=== PATIENT | male | born 1945 | race Caucasian/White ===

== ENCOUNTER 2018-07-06 20:13 | Inpatient (IN) ==
[2018-07-06] MEDS ORDERED: cefTRIAXone 1,000 MG in Water for inj. (sterile) 20 ML 10 ML IVP ONE (20:38)
[2018-07-06] MEDS ORDERED: Isovue-370 500 ML INFUS..BTL IV ONE (20:38)
[2018-07-06 22:02] LABS: Basophils % 0.1 %; Immature Granulocytes % 0.2 % (0-4); Mean Corpuscular Volume 91.1 fL (83.0-100.0); Monocytes % 3.4 %; Red Cell Distribution Width 15.1 % (11.5-14.5)
[2018-07-06 22:04] LABS: Eosinophils % 0.1 %; Hematocrit 37.9 % (37.5-50.1); Hemoglobin 12.5 g/dL (12.9-16.9); Immature Platelets 8.9 % (1.1-6.1); Lymphocytes # 0.3 K/mcL (0.6-4.6); Lymphocytes % 3.6 %; Mean Platelet Volume 10.4 fL (9.4-12.4); Monocytes # 0.3 K/mcL (0.0-1.3); Red Blood Count 4.16 M/mcL (4.19-5.50); Segmented Neutrophils % 92.6 %
[2018-07-06 22:06] LABS: Platelet Count 43 K/mcL (140-400)
[2018-07-06 22:10] LABS: INR 2.2; Prothrombin Time 24.3 Seconds (9.4-12.1)
[2018-07-06 22:12] LABS: Activated Partial Thrombo Time 34.7 Seconds (26.0-36.0)
[2018-07-06 22:25] LABS: Albumin 3.2 g/dL (3.5-5.7); Albumin/Globulin Ratio 0.8 (1.1-2.2); Bilirubin,Indirect 0.8 mg/dL (0.0-1.2); Bilirubin,Total 1.8 mg/dL (0.3-1.0); Calcium 8.8 mg/dL (8.6-10.3); Dohle Bodies Present (Not Present); Globulin 3.9 g/dL (2.4-3.5); Potassium 3.6 mEq/L (3.5-5.1); Total Protein 7.1 g/dL (6.4-8.9)
[2018-07-06 22:27] LABS: Troponin I 0.05 ng/mL (< 0.04)
[2018-07-06] MEDS ORDERED: Piperacillin/Tazobactam 3.375 GM in 0.9 % Sodium Chloride Mini Bag 100 ML IVPB ONE (23:54)
--- NOTE | 2018-07-06 23:56 | Emergency Department Note ---
Disposition Clinical Impression: Obstructive uropathy, Elevated troponin, Severe sepsis Renal failure Qualifiers: Renal failure chronicity: acute Acute renal failure type: unspecified Qualified Code(s): N17.9 - Acute kidney failure, unspecified Atrial fibrillation Qualifiers: Atrial fibrillation type: chronic Qualified Code(s): I48.2 - Chronic atrial fibrillation Cirrhosis Qualifiers: Hepatic cirrhosis type: unspecified hepatic cirrhosis Ascites presence: with ascites Qualified Code(s): K74.60 - Unspecified cirrhosis of liver Disposition: Admitted As Inpatient Condition: Fair General Adult HPI - General Chief complaint: ED Weakness Stated complaint: Dizziness, Weakness Time Seen by Provider: 07/06/18 20:17 Source: patient, EMS, other Limitations: no limitations - History of Present Illness Pain Scale: 0 - Related Data Home Medications Medication Instructions Recorded Confirmed RX: Docusate [Colace] 200 mg PO DAILY PRN 10/23/15 07/07/18 RX: Gabapentin [Neurontin] 600 mg PO TID 10/23/15 07/07/18 RX: Ferrous Sulfate 325 mg PO TID 07/30/16 07/07/18 Ammonium Lactate [Rere-Hydrolac] 1 appl TP BID 07/07/18 07/07/18 Cholecalciferol (D-3) [Vitamin D] 1,000 unit PO DAILY 07/07/18 07/07/18 Furosemide [Lasix] 40 mg PO DAILY 07/07/18 07/07/18 Loratadine [Allergy Relief] 10 mg PO DAILY 07/07/18 07/07/18 NALOXONE 4 MG Nasal [place] [Narcan] 4 mg NS AD 07/07/18 07/07/18 Ondansetron HCl [Zofran] 4 mg PO Q8HR PRN 07/07/18 07/07/18 Oxycodone HCl [Roxybond] 15 mg PO Q6H PRN 07/07/18 07/07/18 Pantoprazole Sodium [Protonix] 40 mg PO DAILY 07/07/18 07/07/18 RX: Atorvastatin [Lipitor] 20 mg PO HS 07/07/18 07/07/18 RX: FluocinoNIDE 0.05% CRM [Lidex] 1 appl TP DAILY 07/07/18 07/07/18 RX: Lidocaine 1 appl TP TID PRN 07/07/18 07/07/18 Spironolactone [Aldactone] 12.5 mg PO DAILY 07/07/18 07/07/18 Terbinafine HCl [Terbinafine] 1 appl TP BID 07/07/18 07/07/18 Previous Rx's Medication Instructions Recorded RX: Diltiazem CD (24hr) [Cardizem 180 mg PO DAILY 30 Days cap.er.24h 10/25/15 CD] Allergies Allergy/AdvReac Type Severity Reaction Status Date / Time No Known Allergies Allergy Verified 07/30/16 17:02 Past Medical History - Past Medical History Medical history: Reports: arthritis, atrial fibrillation, cirrhosis, COPD, diabetes, GERD, GI bleed, hepatitis, hyperlipidemia, hypertension, liver disease, osteoporosis, RA, syncope, other Surgical history: Reports: non-contributory Psychiatric history: Reports: anxiety, PTSD - Social History Smoking Status: Never smoker Smokeless Tobacco Status: No Alcohol use: Reports: none Drug use: Reports: none Physical Exam - General Limitations: no limitations General appearance: alert Course Vital Signs Temperature 98.5 F 07/06/18 20:23 Pulse Rate 127 07/06/18 20:23 Respiratory Rate 31 07/06/18 20:23 Blood Pressure 108/65 07/06/18 20:23 O2 Sat by Pulse Oximetry 87 07/06/18 20:23 Temperature 96.8 F L 07/08/18 03:56 Pulse Rate 77 07/08/18 06:00 Respiratory Rate 18 07/08/18 06:00 Blood Pressure 94/71 07/08/18 06:00 O2 Sat by Pulse Oximetry 94 07/08/18 06:00 Oxygen Delivery Oxygen Delivery Nasal Cannula Medical Decision Making - Lab Data Result diagrams: 07/08/18 05:20 07/08/18 05:20 Lab Results 07/06/18 07/06/18 07/06/18 Range/Units 20:38 20:38 20:38 WBC 8.6 (4.3-11.1) K/mcL RBC 4.16 L (4.19-5.50) M/mcL Hgb 12.5 L (12.9-16.9) g/dL Hct 37.9 (37.5-50.1) % MCV 91.1 (83.0-100.0) fL MCH 30.0 (28.0-33.3) pg MCHC 33.0 (31.6-35.5) g/dL RDW 15.1 H (11.5-14.5) % Plt Count 43 L (140-400) K/mcL MPV 10.4 (9.4-12.4) fL Immature Gran % 0.2 (0-4) % Seg Neutrophils % 92.6 % Lymphocytes % 3.6 % Monocytes % 3.4 % Eosinophils % 0.1 % Basophils % 0.1 % Neutrophils # 8.0 (1.6-8.9) K/mcL Lymphocytes # 0.3 L (0.6-4.6) K/mcL Monocytes # 0.3 (0.0-1.3) K/mcL Eosinophils # 0.0 (0.0-0.6) K/mcL Basophils # 0.0 (0.0-0.2) K/mcL Dohle Bodies Present A (Not Present) Immature Plt Fraction 8.9 H (1.1-6.1) % PT 24.3 H (9.4-12.1) Seconds INR 2.2 APTT 34.7 (26.0-36.0) Seconds Sodium 128 L (136-145) mEq/L Potassium 3.6 (3.5-5.1) mEq/L Chloride 92 L (98-107) mEq/L Carbon Dioxide 23 (23-29) mEq/L BUN 69 H (8-23) mg/dL Creatinine 4.23 H (0.70-1.30) mg/dL Est GFR ( Amer) 17 L (> 60) Est GFR (Non-Af Amer) 14 L (> 60) BUN/Creatinine Ratio 16 (6-26) Glucose 302 H (70-105) mg/dL POC Glucose (70-99) mg/dL Calculated Osmolality 297 (280-300) Lactic Acid (0.5-2.2) mmol/L Calcium 8.8 (8.6-10.3) mg/dL Total Bilirubin 1.8 H (0.3-1.0) mg/dL Direct Bilirubin 1.0 H (0.0-0.2) mg/dL Indirect Bilirubin 0.8 (0.0-1.2) mg/dL AST 30 (13-39) Units/L ALT 29 (7-52) Units/L Alkaline Phosphatase 84 (34-104) Units/L Ammonia (16-53) mcmol/L Troponin I 0.05 H* (< 0.04) ng/mL Serum Total Protein 7.1 (6.4-8.9) g/dL Albumin 3.2 L (3.5-5.7) g/dL Globulin 3.9 H (2.4-3.5) g/dL Albumin/Globulin Ratio 0.8 L (1.1-2.2) Lipase 10 L (11-82) Units/L Urine Color (Yellow) Urine Clarity (Clear) Urine pH (5.0-8.0) pH Units Ur Specific [place] (1.010-1.025) Urine Protein (Neg-Trace) mg/dL Urine Glucose (UA) (Normal) mg/dL Urine Ketones (Negative) mg/dL Urine Blood (Negative) Urine Nitrite (Negative) Urine Bilirubin (Negative) Urine Urobilinogen (Normal) mg/dL Ur Leukocyte Esterase (Negative) Urine Microscopic RBC (0-3) per hpf Urine Microscopic WBC (0-3) per hpf Ur Squamous Epith Cells (None-Few) per lpf Urine Bacteria (None-Few) per hpf Hyaline Casts (None-Few) per lpf Ur Culture Indicated? (NO) A. baumannii (PCR) (Not Detect) Betsey albicans (PCR) (Not Detect) C. glabrata (PCR) (Not Detect) C. krusei (PCR) (Not Detect) C. parapsilosis (PCR) (Not Detect) C. tropicalis (PCR) (Not Detect) Enterobacteriac sp PCR (Not Detect) E. cloacae complex PCR (Not Detect) Enterococcus sp PCR (Not Detect) E. coli (PCR) (Not Detect) H. influenzae (PCR) (Not Detect) Klebsiella oxytoca PCR (Not Detect) Klebsiella pneumoniae (Not Detect) List. monocytogenes PCR (Not Detect) N. meningitidis (PCR) (Not Detect) Proteus species (PCR) (Not Detect) Serratia marcescens PCR (Not Detect) Staphylococcus sp PCR (Not Detect) Staph aureus (PCR) (Not Detect) mecA-Methicil Res Gene (Not Detect) Streptococcus sp PCR (Not Detect) Group A Strep DNA (Not Detect) Group B Strep (PCR) (Not Detect) Strep pneumoniae (PCR) (Not Detect) P. aeruginosa (PCR) (Not Detect) Crystal/B-Vanco Res Genes (Not Detect) KPC (blaKPC) Detect PCR (Not Detect) 07/06/18 07/06/18 07/06/18 Range/Units 21:10 21:42 21:42 WBC (4.3-11.1) K/mcL RBC (4.19-5.50) M/mcL Hgb (12.9-16.9) g/dL Hct (37.5-50.1) % MCV (83.0-100.0) fL MCH (28.0-33.3) pg MCHC (31.6-35.5) g/dL RDW (11.5-14.5) % Plt Count (140-400) K/mcL MPV (9.4-12.4) fL Immature Gran % (0-4) % Seg Neutrophils % % Lymphocytes % % Monocytes % % Eosinophils % % Basophils % % Neutrophils # (1.6-8.9) K/mcL Lymphocytes # (0.6-4.6) K/mcL Monocytes # (0.0-1.3) K/mcL Eosinophils # (0.0-0.6) K/mcL Basophils # (0.0-0.2) K/mcL Dohle Bodies (Not Present) Immature Plt Fraction (1.1-6.1) % PT (9.4-12.1) Seconds INR APTT (26.0-36.0) Seconds Sodium (136-145) mEq/L Potassium (3.5-5.1) mEq/L Chloride (98-107) mEq/L Carbon Dioxide (23-29) mEq/L BUN (8-23) mg/dL Creatinine (0.70-1.30) mg/dL Est GFR ( Amer) (> 60) Est GFR (Non-Af Amer) (> 60) BUN/Creatinine Ratio (6-26) Glucose (70-105) mg/dL POC Glucose (70-99) mg/dL Calculated Osmolality (280-300) Lactic Acid 3.8 H (0.5-2.2) mmol/L Calcium (8.6-10.3) mg/dL Total Bilirubin (0.3-1.0) mg/dL Direct Bilirubin (0.0-0.2) mg/dL Indirect Bilirubin (0.0-1.2) mg/dL AST (13-39) Units/L ALT (7-52) Units/L Alkaline Phosphatase (34-104) Units/L Ammonia 42 (16-53) mcmol/L Troponin I (< 0.04) ng/mL Serum Total Protein (6.4-8.9) g/dL Albumin (3.5-5.7) g/dL Globulin (2.4-3.5) g/dL Albumin/Globulin Ratio (1.1-2.2) Lipase (11-82) Units/L Urine Color (Yellow) Urine Clarity (Clear) Urine pH (5.0-8.0) pH Units Ur Specific [place] (1.010-1.025) Urine Protein (Neg-Trace) mg/dL Urine Glucose (UA) (Normal) mg/dL Urine Ketones (Negative) mg/dL Urine Blood (Negative) Urine Nitrite (Negative) Urine Bilirubin (Negative) Urine Urobilinogen (Normal) mg/dL Ur Leukocyte Esterase (Negative) Urine Microscopic RBC (0-3) per hpf Urine Microscopic WBC (0-3) per hpf Ur Squamous Epith Cells (None-Few) per lpf Urine Bacteria (None-Few) per hpf Hyaline Casts (None-Few) per lpf Ur Culture Indicated? (NO) A. baumannii (PCR) Not Detected (Not Detect) [place] albicans (PCR) Not Detected (Not Detect) C. glabrata (PCR) Not Detected (Not Detect) C. krusei (PCR) Not Detected (Not Detect) C. parapsilosis (PCR) Not Detected (Not Detect) C. tropicalis (PCR) Not Detected (Not Detect) Enterobacteriac sp PCR DETECTED A (Not Detect) E. cloacae complex PCR Not Detected (Not Detect) Enterococcus sp PCR Not Detected (Not Detect) E. coli (PCR) DETECTED A (Not Detect) H. influenzae (PCR) Not Detected (Not Detect) Klebsiella oxytoca PCR Not Detected (Not Detect) Klebsiella pneumoniae Not Detected (Not Detect) List. monocytogenes PCR Not Detected (Not Detect) N. meningitidis (PCR) Not Detected (Not Detect) Proteus species (PCR) Not Detected (Not Detect) Serratia marcescens PCR Not Detected (Not Detect) Staphylococcus sp PCR Not Detected (Not Detect) Staph aureus (PCR) Not Detected (Not Detect) mecA-Methicil Res Gene Not Detected (Not Detect) Streptococcus sp PCR Not Detected (Not Detect) Group A Strep DNA Not Detected (Not Detect) Group B Strep (PCR) Not Detected (Not Detect) Strep pneumoniae (PCR) Not Detected (Not Detect) P. aeruginosa (PCR) Not Detected (Not Detect) Crystal/B-Vanco Res Genes Not Detected (Not Detect) KPC (blaKPC) Detect PCR Not Detected (Not Detect) 07/07/18 07/07/18 07/07/18 Range/Units 03:45 04:55 05:57 WBC (4.3-11.1) K/mcL RBC (4.19-5.50) M/mcL Hgb (12.9-16.9) g/dL Hct (37.5-50.1) % MCV (83.0-100.0) fL MCH (28.0-33.3) pg MCHC (31.6-35.5) g/dL RDW (11.5-14.5) % Plt Count (140-400) K/mcL MPV (9.4-12.4) fL Immature Gran % (0-4) % Seg Neutrophils % % Lymphocytes % % Monocytes % % Eosinophils % % Basophils % % Neutrophils # (1.6-8.9) K/mcL Lymphocytes # (0.6-4.6) K/mcL Monocytes # (0.0-1.3) K/mcL Eosinophils # (0.0-0.6) K/mcL Basophils # (0.0-0.2) K/mcL Dohle Bodies (Not Present) Immature Plt Fraction (1.1-6.1) % PT (9.4-12.1) Seconds INR APTT (26.0-36.0) Seconds Sodium (136-145) mEq/L Potassium (3.5-5.1) mEq/L Chloride (98-107) mEq/L Carbon Dioxide (23-29) mEq/L BUN (8-23) mg/dL Creatinine (0.70-1.30) mg/dL Est GFR ( Amer) (> 60) Est GFR (Non-Af Amer) (> 60) BUN/Creatinine Ratio (6-26) Glucose (70-105) mg/dL POC Glucose 284 H (70-99) mg/dL Calculated Osmolality (280-300) Lactic Acid (0.5-2.2) mmol/L Calcium (8.6-10.3) mg/dL Total Bilirubin (0.3-1.0) mg/dL Direct Bilirubin (0.0-0.2) mg/dL Indirect Bilirubin (0.0-1.2) mg/dL AST (13-39) Units/L ALT (7-52) Units/L Alkaline Phosphatase (34-104) Units/L Ammonia (16-53) mcmol/L Troponin I 0.05 H* (< 0.04) ng/mL Serum Total Protein (6.4-8.9) g/dL Albumin (3.5-5.7) g/dL Globulin (2.4-3.5) g/dL Albumin/Globulin Ratio (1.1-2.2) Lipase (11-82) Units/L Urine Color Dark Yellow (Yellow) Urine Clarity Cloudy A (Clear) Urine pH 5.0 (5.0-8.0) pH Units Ur Specific [place] 1.024 (1.010-1.025) Urine Protein 30 H (Neg-Trace) mg/dL Urine Glucose (UA) Normal (Normal) mg/dL Urine Ketones Trace H (Negative) mg/dL Urine Blood Moderate H (Negative) Urine Nitrite Negative (Negative) Urine Bilirubin Small H (Negative) Urine Urobilinogen 2.0 H (Normal) mg/dL Ur Leukocyte Esterase Large H (Negative) Urine Microscopic RBC 3-5 H (0-3) per hpf Urine Microscopic WBC TNTC H (0-3) per hpf Ur Squamous Epith Cells Moderate H (None-Few) per lpf Urine Bacteria Many H (None-Few) per hpf Hyaline Casts Few (None-Few) per lpf Ur Culture Indicated? YES A (NO) A. baumannii (PCR) (Not Detect) [place] albicans (PCR) (Not Detect) C. glabrata (PCR) (Not Detect) C. krusei (PCR) (Not Detect) C. parapsilosis (PCR) (Not Detect) C. tropicalis (PCR) (Not Detect) Enterobacteriac sp PCR (Not Detect) E. cloacae complex PCR (Not Detect) Enterococcus sp PCR (Not Detect) E. coli (PCR) (Not Detect) H. influenzae (PCR) (Not Detect) Klebsiella oxytoca PCR (Not Detect) Klebsiella pneumoniae (Not Detect) List. monocytogenes PCR (Not Detect) N. meningitidis (PCR) (Not Detect) Proteus species (PCR) (Not Detect) Serratia marcescens PCR (Not Detect) Staphylococcus sp PCR (Not Detect) Staph aureus (PCR) (Not Detect) mecA-Methicil Res Gene (Not Detect) Streptococcus sp PCR (Not Detect) Group A Strep DNA (Not Detect) Group B Strep (PCR) (Not Detect) Strep pneumoniae (PCR) (Not Detect) P. aeruginosa (PCR) (Not Detect) Crystal/B-Vanco Res Genes (Not Detect) KPC (blaKPC) Detect PCR (Not Detect) Attestation Statement - Attestation Attestation: I examined this patient and my medical decision-making was reviewed with the Resident Physician. I agree with the documented findings, disposition and treatment plan as described except to the extent set forth below. Findings consistant with obstructive uropathy. Will admit for surgical removal. Discussed case with urology. Patient does have NEELAM from obstructive uropathy. I spent greater than 35 minutes of critical care time excluding billable procedures. Acute renal Failure.
--- NOTE | 2018-07-06 23:58 | Emergency Department Note ---
Disposition Clinical Impression: Obstructive uropathy, Elevated troponin, Severe sepsis Renal failure Qualifiers: Renal failure chronicity: acute Acute renal failure type: unspecified Qualified Code(s): N17.9 - Acute kidney failure, unspecified Atrial fibrillation Qualifiers: Atrial fibrillation type: chronic Qualified Code(s): I48.2 - Chronic atrial fibrillation Cirrhosis Qualifiers: Hepatic cirrhosis type: unspecified hepatic cirrhosis Ascites presence: with ascites Qualified Code(s): K74.60 - Unspecified cirrhosis of liver; R18.8 - Other ascites Disposition: Admitted As Inpatient Condition: Fair [facility]errals: [facility]Primary Care Provider[facility] - Forms: ED Satisfaction Letter Time of Disposition: 00:17 General Adult HPI - General Chief complaint: ED Weakness Stated complaint: Dizziness, Weakness Time Seen by Provider: 07/06/18 20:17 Source: patient, EMS, other Mode of arrival: EMS Limitations: no limitations Nursing Notes Reviewed: Yes Vital Signs Reviewed: Yes - History of Present Illness HPI Narrative: Patient presents to the ED with abdominal pain. Patient was transferred from the [facility]. Does have a history of cirrhosis and potential liver malignancy. Patient was also complaining of feeling lightheaded like he is going to pass out and weak. They did not have any imaging capabilities at the [place] so he was transferred here. Patient denies any chest pain or shortness breath. He does have some abdominal pain and back pain. Some nausea but no vomiting. No diarrhea. States he has had some difficulty urinating as well. States he also feels very fuzzy and out of it. Pain Scale: 0 - Related Data Home Medications Medication Instructions Recorded Confirmed Docusate [Colace] 100 mg PO DAILY PRN 10/23/15 07/30/16 Gabapentin [Neurontin] 600 mg PO TID 10/23/15 07/30/16 Potassium Chloride [K-Tab ER] 20 meq PO DAILY 10/23/15 07/30/16 hydroCHLOROthiazide 25 mg PO DAILY 10/23/15 07/30/16 [Hydrochlorothiazide] Ferrous Sulfate 975 mg PO DAILY 07/30/16 07/30/16 OxyCODONE Immed Rel [Roxicodone 10 10 mg PO Q6H PRN 07/30/16 07/30/16 MG] Previous Rx's Medication Instructions Recorded Atorvastatin [Lipitor] 40 mg PO HS #30 tablet 10/25/15 Diltiazem CD (24hr) [Cardizem CD] 180 mg PO DAILY 30 Days cap.er.24h 10/25/15 Metoprolol [Lopressor] 25 mg PO BID #60 tablet 10/25/15 Linezolid [Zyvox] 600 mg PO BID #56 tablet 08/03/16 OxyCODONE Immed Rel [Roxicodone 5 5 mg PO TID PRN #30 tablet 08/03/16 MG] Allergies Allergy/AdvReac Type Severity Reaction Status Date / Time No Known Allergies Allergy Verified 07/30/16 17:02 Review of Systems: As reviewed in the HPI. All other systems reviewed are negative or normal. Past Medical History - Past Medical History Attestation: Yes The following information was validated with the patient. Source: patient Medical history: Reports: arthritis, atrial fibrillation, cirrhosis, COPD, diabetes, GERD, GI bleed, hepatitis, hyperlipidemia, hypertension, liver d isease, osteoporosis, RA, syncope, other Surgical history: Reports: non-contributory Psychiatric history: Reports: anxiety, PTSD - Social History Smoking Status: Never smoker Smokeless Tobacco Status: No Alcohol use: Reports: none Drug use: Reports: none Physical Exam CONSTITUTIONAL: [Ill appearing, alert and in no acute distress] EYES: [EOMI, clear conjunctiva, PERRLA] HENT: [Normocephalic, atraumatic, moist mucus membranes, normal oropharynx] NECK: [normal inspection, full ROM, trachea midline, no obvious swelling] PULMONARY: [normal lung sounds bilaterally with some very mild decreased breath sounds bilaterally, normal chest rise and fall, no respiratory distress or stridor, no wheezes, no rales, no rhonchi CARDIOVASCULAR: [Tachycardia, regular rhythm, normal heart sounds, no murmurs, distal extremities are warm and well perfused] GASTROINSTESTINAL: [soft, diffusely tender, non-rigid, significantly distended with ascites, baseline. Positive flank pain, no guarding, no rebound, normal bowel sounds] GENITOURINARY/RECTAL: [deferred] NEUROLOGIC: [Alert, oriented x3, normal speech, moves all extremities] EXTREMITIES: [Normal inspection, full ROM, no tenderness, no pedal edema, normal capillary refill] MUSCULOSKELETAL: [no gross deformities, atraumatic] SKIN: [No cyanosis, no diaphoresis, normal color, warm, no rash] PSYCHIATRIC: [normal mood and affect] - General Limitations: no limitations General appearance: alert Course - Consultations Consultation #1: Spoke with on-call urologist, Dr. martínez. Agreed that patient will need to come in the hospital and likely have stone retrieval. Agreeable with antibiotics and IV fluids. Patient aware and agreeable. Spoke with the hospitalist and was accepted for admission. Patient is a significant history of cirrhosis and malignancy. We will begin rehydration because he technically meet sepsis criteria. We do not have a urinalysis to indicate whether there is infection. However, he has a lactic acidosis and is tachycardic. We will also give him pain medication, but avoid any NSAIDs or Toradol. Vital Signs Temperature 98.5 F 07/06/18 20:23 Pulse Rate 127 07/06/18 20:23 Respiratory Rate 31 07/06/18 20:23 Blood Pressure 108/65 07/06/18 20:23 O2 Sat by Pulse Oximetry 87 07/06/18 20:23 Temperature 98.5 F 07/06/18 20:23 Pulse Rate 122 07/06/18 20:50 Respiratory Rate 18 07/06/18 20:50 Blood Pressure 107/68 07/06/18 20:50 O2 Sat by Pulse Oximetry 93 07/06/18 20:50 Oxygen Delivery Oxygen Delivery Nasal Cannula Medical Decision Making - Medical Records Medical records reviewed: Yes I reviewed the patient's medical records. - Lab Data Lab results reviewed: Yes I reviewed the patient's lab results. Result diagrams: 07/06/18 20:38 07/06/18 20:38 Lab Results 07/06/18 07/06/18 07/06/18 Range/Units 20:38 20:38 20:38 WBC 8.6 (4.3-11.1) K/mcL RBC 4.16 L (4.19-5.50) M/mcL Hgb 12.5 L (12.9-16.9) g/dL Hct 37.9 (37.5-50.1) % MCV 91.1 (83.0-100.0) fL MCH 30.0 (28.0-33.3) pg MCHC 33.0 (31.6-35.5) g/dL RDW 15.1 H (11.5-14.5) % Plt Count 43 L (140-400) K/mcL MPV 10.4 (9.4-12.4) fL Immature Gran % 0.2 (0-4) % Seg Neutrophils % 92.6 % Lymphocytes % 3.6 % Monocytes % 3.4 % Eosinophils % 0.1 % Basophils % 0.1 % Neutrophils # 8.0 (1.6-8.9) K/mcL Lymphocytes # 0.3 L (0.6-4.6) K/mcL Monocytes # 0.3 (0.0-1.3) K/mcL Eosinophils # 0.0 (0.0-0.6) K/mcL Basophils # 0.0 (0.0-0.2) K/mcL Dohle Bodies Present A (Not Present) Immature Plt Fraction 8.9 H (1.1-6.1) % PT 24.3 H (9.4-12.1) Seconds INR 2.2 APTT 34.7 (26.0-36.0) Seconds Sodium 128 L (136-145) mEq/L Potassium 3.6 (3.5-5.1) mEq/L Chloride 92 L (98-107) mEq/L Carbon Dioxide 23 (23-29) mEq/L BUN 69 H (8-23) mg/dL Creatinine 4.23 H (0.70-1.30) mg/dL Est GFR ( Amer) 17 L (> 60) Est GFR (Non-Af Amer) 14 L (> 60) BUN/Creatinine Ratio 16 (6-26) Glucose 302 H (70-105) mg/dL Calculated Osmolality 297 (280-300) Lactic Acid (0.5-2.2) mmol/L Calcium 8.8 (8.6-10.3) mg/dL Total Bilirubin 1.8 H (0.3-1.0) mg/dL Direct Bilirubin 1.0 H (0.0-0.2) mg/dL Indirect Bilirubin 0.8 (0.0-1.2) mg/dL AST 30 (13-39) Units/L ALT 29 (7-52) Units/L Alkaline Phosphatase 84 (34-104) Units/L Ammonia (16-53) mcmol/L Troponin I 0.05 H* (< 0.04) ng/mL Serum Total Protein 7.1 (6.4-8.9) g/dL Albumin 3.2 L (3.5-5.7) g/dL Globulin 3.9 H (2.4-3.5) g/dL Albumin/Globulin Ratio 0.8 L (1.1-2.2) Lipase 10 L (11-82) Units/L 07/06/18 07/06/18 Range/Units 21:42 21:42 WBC (4.3-11.1) K/mcL RBC (4.19-5.50) M/mcL Hgb (12.9-16.9) g/dL Hct (37.5-50.1) % MCV (83.0-100.0) fL MCH (28.0-33.3) pg MCHC (31.6-35.5) g/dL RDW (11.5-14.5) % Plt Count (140-400) K/mcL MPV (9.4-12.4) fL Immature Gran % (0-4) % Seg Neutrophils % % Lymphocytes % % Monocytes % % Eosinophils % % Basophils % % Neutrophils # (1.6-8.9) K/mcL Lymphocytes # (0.6-4.6) K/mcL Monocytes # (0.0-1.3) K/mcL Eosinophils # (0.0-0.6) K/mcL Basophils # (0.0-0.2) K/mcL Dohle Bodies (Not Present) Immature Plt Fraction (1.1-6.1) % PT (9.4-12.1) Seconds INR APTT (26.0-36.0) Seconds Sodium (136-145) mEq/L Potassium (3.5-5.1) mEq/L Chloride (98-107) mEq/L Carbon Dioxide (23-29) mEq/L BUN (8-23) mg/dL Creatinine (0.70-1.30) mg/dL Est GFR ( Amer) (> 60) Est GFR (Non-Af Amer) (> 60) BUN/Creatinine Ratio (6-26) Glucose (70-105) mg/dL Calculated Osmolality (280-300) Lactic Acid 3.8 H (0.5-2.2) mmol/L Calcium (8.6-10.3) mg/dL Total Bilirubin (0.3-1.0) mg/dL Direct Bilirubin (0.0-0.2) mg/dL Indirect Bilirubin (0.0-1.2) mg/dL AST (13-39) Units/L ALT (7-52) Units/L Alkaline Phosphatase (34-104) Units/L Ammonia 42 (16-53) mcmol/L Troponin I (< 0.04) ng/mL Serum Total Protein (6.4-8.9) g/dL Albumin (3.5-5.7) g/dL Globulin (2.4-3.5) g/dL Albumin/Globulin Ratio (1.1-2.2) Lipase (11-82) Units/L - Radiology Data Radiology results reviewed: Yes I reviewed the patient's radiology results.
[2018-07-07] MEDS ORDERED: *HR* HYDROmorphone (PF) 1 MG/ML SYRINGE IVP ONE (00:34)
[2018-07-07] MEDS: 0.9 % Sodium Chloride 1,000 ML IVC SCH ×4 (00:57→14:41)
[2018-07-07 04:18] LABS: Bilirubin,Urine Small (Negative); Blood,Urine Moderate (Negative); Clarity,Urine Cloudy (Clear); Color,Urine Dark Yellow (Yellow); Glucose,Urine (UA) Normal (Normal); Ketones,Urine Trace mg/dL (Negative); Leukocyte Esterase,Urine Large (Negative); Nitrite,Urine Negative (Negative); Protein,Urine 30 mg/dL (Neg-Trace); Specific Gravity,Urine 1.024 (1.010-1.025)
[2018-07-07 04:21] LABS: Hyaline Casts,Urine Few per lpf (None-Few); WBC,Urine TNTC per hpf (0-3)
[2018-07-07 04:44] LABS: Bacteria,Urine Many per hpf (None-Few); Squamous Epithelial Cell,Urine Moderate per lpf (None-Few)
[2018-07-07] MEDS ORDERED: 0.9 % Sodium Chloride 1,000 ML ONE (04:47)
--- NOTE | 2018-07-07 06:46 | Urology - Consult Note ---
Date of Encounter: 07/07/18 Time of Encounter: 06:45 - Assessment and Plan (1) Obstruction of right ureteropelvic junction (UPJ) due to stone Current Visit: Yes Status: Acute Assessment and plan: Will plan on taking the patient urgently to the operative room this morning for cystoscopy and right ureteral stent placement. (2) Renal failure Current Visit: Yes Status: Acute Assessment and plan: Of place right ureteral stent placed will help patient. We will keep catheter placed after surgery. Qualifiers: Renal failure chronicity: acute Acute renal failure type: unspecified Qualified Code(s): N17.9 - Acute kidney failure, unspecified (3) Severe sepsis Current Visit: Yes Status: Acute Assessment and plan: Broad-spectrum antibiotics as per primary team Urology CN:MELYSSA Consult date: 07/07/18 Reason for consult Urology: Hydronephrosis Requesting physician: Terrell Ceballos History of present illness: Avery is a 72-year-old male with a history of transfer from the [facility] secondary to severe right-sided flank pain with radiation towards his penis. Patient states his pain was 10 out of 10 in nature. Patient was found to have a 12 mm right UPJ stone with proximal hydronephrosis. Patient was also found to be in acute renal insufficiency with a creatinine of 4. Patient is a known cirrhotic. Past Med Surg Social Fam HX - Past Medical History Medical history: arthritis, atrial fibrillation, cirrhosis, COPD, diabetes, GERD, GI bleed, hepatitis, hyperlipidemia, hypertension, osteoporosis, RA, other Additional medical history: Hx hepatitis c, Psychiatric history: anxiety, PTSD - Past Surgical History Surgical History: non-contributory Additional surgical history: tumor removal - Social History Smoking Status: Never smoker Smokeless Tobacco Status: No Alcohol use: none Drug use: none - Family History Father History Unknown: Yes Hx Family Cancer: Yes Medications and Allergies Docusate [Colace] 100 mg PO DAILY PRN 10/23/15 [History] Gabapentin [Neurontin] 600 mg PO TID 10/23/15 [History] Potassium Chloride [K-Tab ER] 20 meq PO DAILY 10/23/15 [History] hydroCHLOROthiazide [Hydrochlorothiazide] 25 mg PO DAILY 10/23/15 [History] Atorvastatin [Lipitor] 40 mg PO HS #30 tablet 10/25/15 [Rx] Diltiazem CD (24hr) [Cardizem CD] 180 mg PO DAILY 30 Days cap.er.24h 10/25/15 [Rx] Metoprolol [Lopressor] 25 mg PO BID #60 tablet 10/25/15 [Rx] Ferrous Sulfate 975 mg PO DAILY 07/30/16 [History] OxyCODONE Immed Rel [Roxicodone 10 MG] 10 mg PO Q6H PRN 07/30/16 [History] Linezolid [Zyvox] 600 mg PO BID #56 tablet 08/03/16 [Rx] OxyCODONE Immed Rel [Roxicodone 5 MG] 5 mg PO TID PRN #30 tablet 08/03/16 [Rx] Allergy/AdvReac Type Severity Reaction Status Date / Time No Known Allergies Allergy Verified 07/30/16 17:02 Review of Systems - Constitutional no chills, no fever(s) - Cardiovascular no chest pain - Respiratory dyspnea Exam Initial Vital Signs Temp Pulse Resp BP Pulse Ox 98.5 F 127 31 108/65 87 07/06/18 20:23 07/06/18 20:23 07/06/18 20:23 07/06/18 20:23 07/06/18 20:23 - General physical appearance Present: well developed, well nourished - Eyes Present: PERRL - Respiratory Present: normal respiratory effort - Cardiovascular Cardiovascular exam IM: tachycardia Urology Results - Labs 07/06/18 20:38 07/06/18 20:38 Abnormal lab results RBC 4.16 M/mcL (4.19-5.50) L 07/06/18 20:38 Hgb 12.5 g/dL (12.9-16.9) L 07/06/18 20:38 RDW 15.1 % (11.5-14.5) H 07/06/18 20:38 Plt Count 43 K/mcL (140-400) L 07/06/18 20:38 Lymphocytes # 0.3 K/mcL (0.6-4.6) L 07/06/18 20:38 Dohle Bodies Present (Not Present) A 07/06/18 20:38 Immature Plt Fraction 8.9 % (1.1-6.1) H 07/06/18 20:38 PT 24.3 Seconds (9.4-12.1) H 07/06/18 20:38 Sodium 128 mEq/L (136-145) L 07/06/18 20:38 Chloride 92 mEq/L (98-107) L 07/06/18 20:38 BUN 69 mg/dL (8-23) H 07/06/18 20:38 Creatinine 4.23 mg/dL (0.70-1.30) H 07/06/18 20:38 Est GFR ( Amer) 17 (> 60) L 07/06/18 20:38 Est GFR (Non-Af Amer) 14 (> 60) L 07/06/18 20:38 Glucose 302 mg/dL (70-105) H 07/06/18 20:38 Lactic Acid 3.8 mmol/L (0.5-2.2) H 07/06/18 21:42 Total Bilirubin 1.8 mg/dL (0.3-1.0) H 07/06/18 20:38 Direct Bilirubin 1.0 mg/dL (0.0-0.2) H 07/06/18 20:38 Troponin I 0.05 ng/mL (< 0.04) H* 07/07/18 05:57 Albumin 3.2 g/dL (3.5-5.7) L 07/06/18 20:38 Globulin 3.9 g/dL (2.4-3.5) H 07/06/18 20:38 Albumin/Globulin Ratio 0.8 (1.1-2.2) L 07/06/18 20:38 Lipase 10 Units/L (11-82) L 07/06/18 20:38 Urine Clarity Cloudy (Clear) A 07/07/18 03:45 Urine Protein 30 mg/dL (Neg-Trace) H 07/07/18 03:45 Urine Ketones Trace mg/dL (Negative) H 07/07/18 03:45 Urine Blood Moderate (Negative) H 07/07/18 03:45 Urine Bilirubin Small (Negative) H 07/07/18 03:45 Urine Urobilinogen 2.0 mg/dL (Normal) H 07/07/18 03:45 Ur Leukocyte Esterase Large (Negative) H 07/07/18 03:45 Urine Microscopic RBC 3-5 per hpf (0-3) H 07/07/18 03:45 Urine Microscopic WBC TNTC per hpf (0-3) H 07/07/18 03:45 Ur Squamous Epith Cells Moderate per lpf (None-Few) H 07/07/18 03:45 Urine Bacteria Many per hpf (None-Few) H 07/07/18 03:45 Ur Culture Indicated? YES (NO) A 07/07/18 03:45 Diabetes panel 07/06/18 Range/Units 20:38 Sodium 128 L (136-145) mEq/L Potassium 3.6 (3.5-5.1) mEq/L Chloride 92 L (98-107) mEq/L Carbon Dioxide 23 (23-29) mEq/L BUN 69 H (8-23) mg/dL Creatinine 4.23 H (0.70-1.30) mg/dL Glucose 302 H (70-105) mg/dL Calcium 8.8 (8.6-10.3) mg/dL AST 30 (13-39) Units/L ALT 29 (7-52) Units/L Alkaline Phosphatase 84 (34-104) Units/L Albumin 3.2 L (3.5-5.7) g/dL Calcium panel 07/06/18 Range/Units 20:38 Calcium 8.8 (8.6-10.3) mg/dL Albumin 3.2 L (3.5-5.7) g/dL Pituitary panel 07/06/18 Range/Units 20:38 Sodium 128 L (136-145) mEq/L Potassium 3.6 (3.5-5.1) mEq/L Chloride 92 L (98-107) mEq/L Carbon Dioxide 23 (23-29) mEq/L BUN 69 H (8-23) mg/dL Creatinine 4.23 H (0.70-1.30) mg/dL Glucose 302 H (70-105) mg/dL Calcium 8.8 (8.6-10.3) mg/dL Adrenal panel 07/06/18 Range/Units 20:38 Sodium 128 L (136-145) mEq/L Potassium 3.6 (3.5-5.1) mEq/L Chloride 92 L (98-107) mEq/L Carbon Dioxide 23 (23-29) mEq/L BUN 69 H (8-23) mg/dL Creatinine 4.23 H (0.70-1.30) mg/dL Glucose 302 H (70-105) mg/dL Calcium 8.8 (8.6-10.3) mg/dL Total Bilirubin 1.8 H (0.3-1.0) mg/dL AST 30 (13-39) Units/L ALT 29 (7-52) Units/L Alkaline Phosphatase 84 (34-104) Units/L Albumin 3.2 L (3.5-5.7) g/dL All other labs normal. - Imaging CT scan - abdomen: image reviewed CT scan - pelvis: image reviewed Consult Discharge Plan - Plan [facility]Primary Care Provider[facility] -
--- NOTE | 2018-07-07 07:19 | Anesthesia Evaluation PreOp ---
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: Syncope (History of peripheral autonomic neuropathy), Other (Diabetic peripheral neuropathy with associated erectile dysfunction) Other Medical History: Hepatic (Hep C, Cirrhosis), Diabetes Type II, GERD, Other (Hx GI bleed, hemachromatosis, [place], Metabolic syndrome, osteoporosis, RA) Alcohol Use: none Drug use: none Medications and Allergies Docusate [Colace] 100 mg PO DAILY PRN 10/23/15 [History] Gabapentin [Neurontin] 600 mg PO TID 10/23/15 [History] Potassium Chloride [K-Tab ER] 20 meq PO DAILY 10/23/15 [History] hydroCHLOROthiazide [Hydrochlorothiazide] 25 mg PO DAILY 10/23/15 [History] Atorvastatin [Lipitor] 40 mg PO HS #30 tablet 10/25/15 [Rx] Diltiazem CD (24hr) [Cardizem CD] 180 mg PO DAILY 30 Days cap.er.24h 10/25/15 [Rx] Metoprolol [Lopressor] 25 mg PO BID #60 tablet 10/25/15 [Rx] Ferrous Sulfate 975 mg PO DAILY 07/30/16 [History] OxyCODONE Immed Rel [Roxicodone 10 MG] 10 mg PO Q6H PRN 07/30/16 [History] Linezolid [Zyvox] 600 mg PO BID #56 tablet 08/03/16 [Rx] OxyCODONE Immed Rel [Roxicodone 5 MG] 5 mg PO TID PRN #30 tablet 08/03/16 [Rx] Allergy/AdvReac Type Severity Reaction Status Date / Time No Known Allergies Allergy Verified 07/30/16 17:02 - Meds/Allergy Pre-op Review Medications Reviewed: Yes Allergies Reviewed: Yes Beta Blockers on Current Med List: Yes Anesthesia Results - Labs 07/06/18 20:38 07/06/18 20:38 Date of Study: 12/18/2016 Date: 1945 Ht: 72.0 in Medical Record#: [id number] Age: 71 Wt: 280.0 lb Gender: Male BSA: 2.46 Order #: [id number] Location: [facility] OP Room #: Reading Physician: Clark Conteh MD, [facility] Motorcycle Maker: Heron Devlin Ordering Physician: Grupo Wheeler MD, [facility] Primary Physician: None Indications: Congestive heart failure Impressions: Normal LV systolic function, LVEF 60-65%. Mild concentric left ventricular hypertrophy. Indeterminate diastolic function due to atrial fibrillation. Dilated right ventricle with normal systolic function. Severely dilated left atrium. Severely dilated right atrium. Moderately calcified aortic valve leaflets. Valve morphology not well visualized. Mild aortic stenosis. Moderate posterior mitral annular calcification with restricted motion of the posterior mitral valve leaflet. Moderate mitral stenosis. Mean gradient = 8 mmHg. Mild-moderate mitral regurgitation (eccentric, posteriorly directed). Mild pulmonic regurgitation. Moderate-severe pulmonary hypertension. Estimated RVSP = 59 mmHg. 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
[2018-07-07 08:21] LABS: Acinetobacter baumannii by PCR Not Detected (Not Detect); Candida albicans by PCR Not Detected (Not Detect); Candida glabrata by PCR Not Detected (Not Detect); Candida krusei by PCR Not Detected (Not Detect); Candida parapsilosis by PCR Not Detected (Not Detect); Candida tropicalis by PCR Not Detected (Not Detect); Enterobacter cloacae Cmplx PCR Not Detected (Not Detect); Enterobacteriaceae by PCR DETECTED (Not Detect); Enterococcus by PCR Not Detected (Not Detect); Escherichia coli by PCR DETECTED (Not Detect); Klebsiella oxytoca by PCR Not Detected (Not Detect); Klebsiella pneumoniae by PCR Not Detected (Not Detect); Proteus by PCR Not Detected (Not Detect); Pseudomonas aeruginosa by PCR Not Detected (Not Detect); Serratia marcescens by PCR Not Detected (Not Detect); Staphylococcus aureus by PCR Not Detected (Not Detect); Staphylococcus by PCR Not Detected (Not Detect); Streptococcus agalactiae(B)PCR Not Detected (Not Detect); Streptococcus by PCR Not Detected (Not Detect); Streptococcus pneumoniae PCR Not Detected (Not Detect); Streptococcus pyogenes (A) PCR Not Detected (Not Detect); blaKPC Carbapenem-Resist Gene Not Detected (Not Detect); mecA Methicillin-Resist Gene Not Detected (Not Detect); vanA/B Vancomycin-Resist Genes Not Detected (Not Detect)
[2018-07-07] MEDS ORDERED: Ondansetron 4 MG/2 ML VIAL ONE (08:22)
[2018-07-07] MEDS ORDERED: Dexamethasone 4 MG/ML VIAL ONE (08:22)
[2018-07-07] MEDS ORDERED: *HR* Propofol 200 MG/20 ML VIAL IVP ONE (08:22)
[2018-07-07] MEDS ORDERED: *HR* Succinylcholine 200 MG/10 ML VIAL IVP ONE (08:22)
[2018-07-07] MEDS ORDERED: Lidocaine -MPF 2% 2 ML VIAL ONE (08:22)
[2018-07-07] MEDS ORDERED: *HR* FentaNYL (PF) 100 MCG/2 ML VIAL ONE (08:22)
[2018-07-07] MEDS ORDERED: Lidocaine -MPF 4% 5 ML AMPUL ONE (08:22)
[2018-07-07] MEDS ORDERED: *HR* Midazolam HCl 2 MG/2 ML VIAL ONE (08:24)
[2018-07-07] MEDS ORDERED: Isovue-300 30 ML VIAL ONE (08:56)
[2018-07-07] MEDS ORDERED: *HR* Vasopressin 20 UNIT/ML VIAL ONE (09:27)
--- NOTE | 2018-07-07 09:48 | Operative Note ---
Date of procedure: 07/07/18 Pre-op diagnosis: right upj stone with sepsis Post-op diagnosis: same Procedure: Cystoscopy and right 6 x 28 cm ureteral stent placement Anesthesia: GETA Surgeon: Tom Jaime Was there an railway yard assistant present: No Estimated blood loss (cc): 0 Specimen: none Condition: stable Disposition: PACU Procedure in Detail: Patient was prepped and draped in normal sterile fashion. I kept the patient on the room bed secondary to anesthesia concerns. Flexible cystoscope was then placed into the patient's urethra and advanced into the bladder. I then she was able to locate the right ureteral orifice and placed the open ended ureteral catheter into this and place a Glidewire into the right ureteral orifice. I then placed a 6 x 28 cm stent with good curl seen in the bladder. 18-Nepali catheter was then replaced into the patient's bladder. Procedure was ended. We will obtain KUB in recovery room.
[2018-07-07] MEDS ORDERED: Ringers Solution, Lactated 1,000 ML ONE (10:07)
[2018-07-07] MEDS ORDERED: *HR* Metoprolol 5 MG/5 ML VIAL IVP ONE (10:09)
[2018-07-07] MEDS ORDERED: *HR* Metoprolol 5 MG/5 ML VIAL IVP PRN (10:10)
[2018-07-07] MEDS ORDERED: Levalbuterol Neb 1.25 MG/3 ML IH SCH (10:15)
[2018-07-07 10:47] LABS: ABG Base Excess -5 mEq/L (-2 to 3); ABG HCO3 20 mEq/L (21-27); ABG Oxygen Saturation 93 % (95-98); ABG PCO2 37 mmHg (35-45); ABG PH 7.35 pH Units (7.32-7.45); ABG PO2 70 mmHg (85-104); ABG TCO2 22 mEq/L (20-26); Blood Gas Modality BiLevel; Blood Gas PEEP 6 cm H2O
--- NOTE | 2018-07-07 10:49 | Internal Med History&Physical ---
Date of Encounter: 07/07/18 Time of Encounter: 09:50 Internal Medicine - H&P: HPI Chief complaint: Right flank pain and acute respiratory failure Admitted From: Home Plans for Post Hospital Care: Home History of present illness: Mr. Michel is a 72 year old male with past medical history of Hep C, liver cirrhosis, Diabetes type II, GERD, HLD, HTN, arrhythmia, HTN, HLD, morid obesity, COPD, metabolic syndrome, ?hemachromatosis who presented with R flank pain. Pt drowsy and obtunded and unbale to give a history. Pt was seen by urology and pt is s/p cystoscopy and right ureteral stent placement 07/07/2018. According to ED notes pt is a transfer form the [facility]. Pt was complaining or feeling lightheaded and like he was going to pass out. According anesthesiologist, pt was drowsy prior to procedure and his HR/ was in 180's so he was started on cardizem bolus and cardizem gtt. Pt was evaluated in PACU post procedure. HE was on BiPAP due to saturation dropping into 80's on room air. Pt's baseline reportedly room air. In ED BP 108/65, RR 31, HR 127, saturation 93% on BiPAP. WBC 8.6, hgb 12.5, hct 37.9, plt 43. BUN 69 and Cr 4.23 07/06/2018. Cr Jul 2016 was 0.91 Critical care time 35-70 minutes. CODE STATUS FULL Past Med Surg Social Fam HX - Past Medical History Medical history: arthritis, atrial fibrillation, cirrhosis, COPD, diabetes, GERD, GI bleed, hepatitis, hyperlipidemia, hypertension, osteoporosis, RA, other Additional medical history: Hx hepatitis c, Psychiatric history: anxiety, PTSD - Past Surgical History Surgical History: non-contributory Additional surgical history: tumor removal - Social History Smoking Status: Never smoker Smokeless Tobacco Status: No Alcohol use: none Drug use: none - Family History Father History Unknown: Yes Hx Family Cancer: Yes Internal Medicine - H&P: Meds Docusate [Colace] 200 mg PO DAILY PRN 10/23/15 [History] Gabapentin [Neurontin] 600 mg PO TID 10/23/15 [History] Diltiazem CD (24hr) [Cardizem CD] 180 mg PO DAILY 30 Days cap.er.24h 10/25/15 [Rx] Ferrous Sulfate 325 mg PO TID 07/30/16 [History] Ammonium Lactate [Rere-Hydrolac] 1 appl TP BID 07/07/18 [History] Atorvastatin [Lipitor] 20 mg PO HS 07/07/18 [History] Cholecalciferol (D-3) [Vitamin D] 1,000 unit PO DAILY 07/07/18 [History] FluocinoNIDE 0.05% CRM [Lidex] 1 appl TP DAILY 07/07/18 [History] Furosemide [Lasix] 40 mg PO DAILY 07/07/18 [History] Lidocaine 1 appl TP TID PRN 07/07/18 [History] Loratadine [Allergy Relief] 10 mg PO DAILY 07/07/18 [History] NALOXONE 4 MG Nasal [place] [Narcan] 4 mg NS AD 07/07/18 [History] Ondansetron HCl [Zofran] 4 mg PO Q8HR PRN 07/07/18 [History] Oxycodone HCl [Roxybond] 15 mg PO Q6H PRN 07/07/18 [History] Pantoprazole Sodium [Protonix] 40 mg PO DAILY 07/07/18 [History] Spironolactone [Aldactone] 12.5 mg PO DAILY 07/07/18 [History] Terbinafine HCl [Terbinafine] 1 appl TP BID 07/07/18 [History] Allergy/AdvReac Type Severity Reaction Status Date / Time No Known Allergies Allergy Verified 07/30/16 17:02 All Systems PM: A 10-system review of systems was performed and is negative for pertinent findings except as documented above in the HPI. - Constitutional Vitals: Temp Pulse Resp BP Pulse Ox 97.9 F 146 36 148/103 92 07/07/18 09:57 07/07/18 09:57 07/07/18 09:57 07/07/18 09:57 07/07/18 09:57 General appearance: Present: A&O X 0, morbidly obese, severe distress Exam: . - Head Head exam: Present: atraumatic, normocephalic - Eye Eye exam: Present: PERRL, conjuntiva pink, sclera anicteric Pupils: Present: PERRL - Neck Neck exam general surgery: Present: supple, trachea midline. Absent: lymphadenopathy - Respiratory Respiratory exam: Present: CTAB. Absent: accessory muscle use, rales, rhonchi, wheezes - Cardiovascular Cardiovascular exam: Present: RRR, +S1, +S2. Absent: diastolic murmur, gallop, rubs, systolic murmur - GI/Abdominal GI/Abdominal exam: Present: distended, normal bowel sounds, soft, no peritoneal signs. Absent: tenderness Additional comments: abdomen rotund - Extremities Exam Extremities exam: Present: pedal edema, warm, radial pulses palpable and symmetrical. Absent: calf tenderness, cyanotic - Neurological Exam Neurological exam: Present: CN II-XII intact, oriented X3, no focal deficits. Absent: pronater drift, facial droop, speech deficit - Skin Skin exam: Present: dry, intact Internal Med - H&P Results - Labs CBC & Chem 7: 07/07/18 12:28 07/07/18 12:28 Labs: Short CBC 07/06/18 Range/Units 20:38 WBC 8.6 (4.3-11.1) K/mcL Hgb 12.5 L (12.9-16.9) g/dL Hct 37.9 (37.5-50.1) % Plt Count 43 L (140-400) K/mcL Neutrophils # 8.0 (1.6-8.9) K/mcL BMP 07/06/18 20:38 Sodium 128 L Potassium 3.6 Chloride 92 L Carbon Dioxide 23 BUN 69 H Creatinine 4.23 H Glucose 302 H Calcium 8.8 Cardiac Enzymes 07/06/18 07/07/18 Range/Units 20:38 05:57 Troponin I 0.05 H* 0.05 H* (< 0.04) ng/mL Liver Function 07/06/18 Range/Units 20:38 Total Bilirubin 1.8 H (0.3-1.0) mg/dL Direct Bilirubin 1.0 H (0.0-0.2) mg/dL AST 30 (13-39) Units/L ALT 29 (7-52) Units/L Alkaline Phosphatase 84 (34-104) Units/L Albumin 3.2 L (3.5-5.7) g/dL Urine 07/07/18 Range/Units 03:45 Urine Color Dark Yellow (Yellow) Urine Clarity Cloudy A (Clear) Urine pH 5.0 (5.0-8.0) pH Units Ur Specific [place] 1.024 (1.010-1.025) Urine Protein 30 H (Neg-Trace) mg/dL Urine Glucose (UA) Normal (Normal) mg/dL - Impressions ITS Impressions Abdomen/Pelvis CT 07/06/18 20:38 IMPRESSION: 1.6 cm stone at the right UPJ causes right obstructive uropathy. Liver nodularity consistent with cirrhosis. Cholelithiasis but no acute cholecystitis. Normal appendix. D/ / 07/07/2018 07:11:20 Kaitlin Tracy MD / barbara Interpreting Provider: Kaitlin Tracy MD Head CT 07/06/18 20:38 IMPRESSION: No acute intracranial abnormality. D/ / Carl Marks / Carl Marks Interpreting Provider: Carl Marks X-Ray 07/07/18 09:42 IMPRESSION: Appropriately positioned right ureteral stent. 10-11 mm calculus at the right UPJ unchanged from the CT. D/ / Cleve Galeana MD / Cleve Galeana MD Interpreting Provider: Cleve Galeana MD - Assessment and plan (1) Acute respiratory failure with hypoxemia Current Visit: Yes Status: Acute Assessment and plan: Checking STAT ABG. Consulting pulmonology and transfering to ICU for close mon itoring. Continue on BiPAP. Given Xoepnex treatment x 2 in PACU and will continue nebs. (2) Sepsis Current Visit: Yes Status: Acute Assessment and plan: Pt is meeting sepsis criteria due to positive blood culture and evidence of SIRs on admission. Pt met SIRs criteria on admission due to hypotension, tachycardia, and tachypnea. His blood cultures positive for gram neg milagros. Serology showing Ecoli and Enterobacteriac sp Will place on broad spectrum antibiotic with Vancomycin and Zosyn for now pending final culture results. Qualifiers: Qualified Code(s): A41.9 - Sepsis, unspecified organism (3) Bacteremia Current Visit: Yes Status: Acute Assessment and plan: Gram neg milagros likely Ecoli. Awaiting final culture and sensitivity (4) Acute cystitis with hematuria Current Visit: Yes Status: Acute Assessment and plan: On Zosyn and Vanc for now due to spesis. Urine culture pending. (5) Hypotension Current Visit: Yes Status: Acute Assessment and plan: Given 1L bolus. Will give maintenance IVF and monitor vitals Qualifiers: Hypotension type: unspecified hypotension type Qualified Code(s): I95.9 - Hypotension, unspecified (6) Acute kidney injury Current Visit: Yes Status: Acute Assessment and plan: Likely due to renal calculi and hydronephrosis. Urology on board and s/p cystoscopy and right ureteral stent placement. Consulting nephrology due to pt having high risk for volume overload, appreciate nephrology consult. (7) COPD with exacerbation Current Visit: Yes Status: Acute Assessment and plan: Pulmonology on board and respiratory regimen per pulm service (8) Lactic acidosis Current Visit: Yes Status: Acute Assessment and plan: 3.8 and repeat down to 2.0 following hydration. (9) Atrial flutter with rapid ventricular response Current Visit: No Status: Acute Assessment and plan: Cardiology consulted and cardizem gtt ordered but BP dropping due to sepsis. Will defer to cardiology for further recommendations i.e. Amiodarone. Will monitor closely in ICU. (10) Type II diabetes mellitus Current Visit: Yes Status: Chronic Assessment and plan: SSI for now. Will monitor glucose. Qualifiers: Diabetes mellitus fdc insulin use: unspecified fdc insulin use status Diabetes mellitus complication status: with unspecified complications Qualified Code(s): E11.8 - Type 2 diabetes mellitus with unspecified complications (11) Pulmonary hypertension Current Visit: Yes Status: Acute Assessment and plan: Moderate to severe pulmononary HTN (12) Cirrhosis Current Visit: Yes Status: Chronic Qualifiers: Hepatic cirrhosis type: unspecified hepatic cirrhosis Ascites presence: with ascites Qualified Code(s): K74.60 - Unspecified cirrhosis of liver; R18.8 - Other ascites (13) Hepatitis C Current Visit: No Status: Chronic Qualifiers: Viral hepatitis chronicity: chronic Hepatic coma status: without hepatic coma Qualified Code(s): B18.2 - Chronic viral hepatitis C (14) Morbid obesity Current Visit: Yes Status: Acute Assessment and plan: Life style modification such as diet and exercise. (15) Hypertension Current Visit: No Status: Chronic Assessment and plan: On Ditiazem, spirinolactone, and lopressor at home but on hold due to hypotension Qualifiers: Hypertension type: essential hypertension Qualified Code(s): I10 - Essential (primary) hypertension - Time Spent With Patient Total time spent is greater than 50% in coordination of care (as documented) at patient's floor/unit and/or counseling patient: 25 - 35 minutes
[2018-07-07] MEDS ORDERED: Acetaminophen 325 MG TABLET PO PRN ×2 (10:58→11:54)
[2018-07-07] MEDS ORDERED: 0.9 % Sodium Chloride 1,000 ML IVC ONE (10:58)
[2018-07-07] MEDS ORDERED: Naloxone 0.4 MG/ML INJ IVP PRN ×3 (10:58→11:54)
[2018-07-07] MEDS ORDERED: 0.9 % Sodium Chloride 1,000 ML IVC SCH ×4 (11:00→11:54)
[2018-07-07] MEDS ORDERED: Amiodarone Premix 360 MG/200 ML BAG IVC ONE ×2 (11:33→11:54)
[2018-07-07] MEDS ORDERED: Amiodarone Premix 150 MG/100 ML BAG IVPB ONE ×2 (11:33→11:54)
--- NOTE | 2018-07-07 11:52 | Anesthesia Evaluation Post Op ---
Date of Encounter: 07/07/18 Time of Encounter: 11:50 - Vital Signs Vital Signs: Vital Signs/O2 Sat, Most Current Temp Pulse Resp BP Pulse Ox 101.9 F H 115 36 101/70 96 07/07/18 11:00 07/07/18 11:00 07/07/18 11:00 07/07/18 11:00 07/07/18 11:00 - Lungs Lungs: Wheezes - Airway Airway: Non-obstructed - Cardiovascular Irregular Rate, Baseline Rhythm - Mental Status Mental Status: Alert & Oriented, Answers Appropriately - Pain Pain Scale: 0 Pain Scale used: Numeric (1 - 10) - Nausea Vomiting Nausea Vomiting: Not Present - Hydration Hydration: NPO, Has not voided - Discharge PostOp Status: Transfer Patient to floor (Pt transsfered to ICU)
[2018-07-07] MEDS ORDERED: Ondansetron 4 MG/2 ML VIAL IVP PRN (11:54)
[2018-07-07] MEDS ORDERED: *HR* HYDROcodone/Acet 5/325 mg TABLET PO PRN (11:54)
[2018-07-07] MEDS ORDERED: Pantoprazole 40 MG VIAL IVP SCH (12:00)
--- NOTE | 2018-07-07 12:01 | Pulmonology Consult Note ---
<Alyssa Farah S - Last Filed: 07/07/18 13:38> Date of Encounter: 07/07/18 Medications and Allergies Docusate [Colace] 200 mg PO DAILY PRN 10/23/15 [History] Gabapentin [Neurontin] 600 mg PO TID 10/23/15 [History] Diltiazem CD (24hr) [Cardizem CD] 180 mg PO DAILY 30 Days cap.er.24h 10/25/15 [Rx] Ferrous Sulfate 325 mg PO TID 07/30/16 [History] Ammonium Lactate [Rere-Hydrolac] 1 appl TP BID 07/07/18 [History] Atorvastatin [Lipitor] 20 mg PO HS 07/07/18 [History] Cholecalciferol (D-3) [Vitamin D] 1,000 unit PO DAILY 07/07/18 [History] FluocinoNIDE 0.05% CRM [Lidex] 1 appl TP DAILY 07/07/18 [History] Furosemide [Lasix] 40 mg PO DAILY 07/07/18 [History] Lidocaine 1 appl TP TID PRN 07/07/18 [History] Loratadine [Allergy Relief] 10 mg PO DAILY 07/07/18 [History] NALOXONE 4 MG Nasal [place] [Narcan] 4 mg NS AD 07/07/18 [History] Ondansetron HCl [Zofran] 4 mg PO Q8HR PRN 07/07/18 [History] Oxycodone HCl [Roxybond] 15 mg PO Q6H PRN 07/07/18 [History] Pantoprazole Sodium [Protonix] 40 mg PO DAILY 07/07/18 [History] Spironolactone [Aldactone] 12.5 mg PO DAILY 07/07/18 [History] Terbinafine HCl [Terbinafine] 1 appl TP BID 07/07/18 [History] Allergy/AdvReac Type Severity Reaction Status Date / Time No Known Allergies Allergy Verified 07/30/16 17:02 All Systems: The remainder of the systems were reviewed and are negative Physical Examination Vital Signs: Vital Signs, Last 4 Hours Temp Pulse Resp BP Pulse Ox 07/07/18 13:00 103 24 97/71 95 07/07/18 12:00 115 28 90/63 96 07/07/18 11:00 101.9 F H 115 36 101/70 96 07/07/18 10:47 118 36 102/53 93 07/07/18 10:42 116 36 82/55 93 07/07/18 10:37 135 36 102/70 93 07/07/18 10:32 118 32 74/49 93 07/07/18 10:27 112 38 90/67 93 07/07/18 10:17 105 36 82/66 93 07/07/18 10:07 108 36 99/61 88 07/07/18 09:57 97.9 F 146 36 148/103 80 Results - Laboratory Findings CBC and BMP: 07/07/18 12:28 07/07/18 12:28 ABG ABG pH 7.35 pH Units (7.32-7.45) 07/07/18 10:42 ABG pCO2 37 mmHg (35-45) 07/07/18 10:42 ABG pO2 70 mmHg (85-104) L 07/07/18 10:42 ABG O2 Saturation 93 % (95-98) L 07/07/18 10:42 PT/INR, D-dimer PT 20.0 Seconds (9.4-12.1) H 07/07/18 12:28 Abnormal lab findings: Abnormal lab results RBC 3.66 M/mcL (4.19-5.50) L 07/07/18 12:28 Hgb 11.0 g/dL (12.9-16.9) L D 07/07/18 12:28 Hct 33.3 % (37.5-50.1) L 07/07/18 12:28 RDW 15.5 % (11.5-14.5) H 07/07/18 12:28 Plt Count 29 K/mcL (140-400) L* 07/07/18 12:28 Neutrophils # 9.9 K/mcL (1.6-8.9) H 07/07/18 12:28 Lymphocytes # 0.2 K/mcL (0.6-4.6) L 07/07/18 12:28 Nucleated RBCs/100 WBC 0.3 /100 WBC (0) H 07/07/18 12:28 Dohle Bodies Present (Not Present) A 07/06/18 20:38 Immature Plt Fraction 8.9 % (1.1-6.1) H 07/06/18 20:38 PT 20.0 Seconds (9.4-12.1) H 07/07/18 12:28 ABG pO2 70 mmHg (85-104) L 07/07/18 10:42 ABG HCO3 20 mEq/L (21-27) L 07/07/18 10:42 ABG O2 Saturation 93 % (95-98) L 07/07/18 10:42 ABG Base Excess -5 mEq/L (-2 to 3) L 07/07/18 10:42 Sodium 131 mEq/L (136-145) L 07/07/18 12:28 Carbon Dioxide 20 mEq/L (23-29) L 07/07/18 12:28 BUN 76 mg/dL (8-23) H 07/07/18 12:28 Creatinine 3.96 mg/dL (0.70-1.30) H 07/07/18 12:28 Est GFR ( Amer) 18 (> 60) L 07/07/18 12:28 Est GFR (Non-Af Amer) 15 (> 60) L 07/07/18 12:28 Glucose 302 mg/dL (70-105) H 07/07/18 12:28 POC Glucose 284 mg/dL (70-99) H 07/07/18 04:55 Calculated Osmolality 306 (280-300) H 07/07/18 12:28 Lactic Acid 3.9 mmol/L (0.5-2.2) H 07/07/18 12:28 Calcium 7.7 mg/dL (8.6-10.3) L 07/07/18 12:28 Venous Ioniz Calcium 1.02 mmol/L (1.15-1.35) L 07/07/18 12:45 Phosphorus 2.1 mg/dL (2.7-4.5) L 07/07/18 12:28 Magnesium 1.2 mg/dL (1.6-2.6) L 07/07/18 12:28 Total Bilirubin 1.9 mg/dL (0.3-1.0) H 07/07/18 12:28 Direct Bilirubin 1.0 mg/dL (0.0-0.2) H 07/06/18 20:38 Alkaline Phosphatase 138 Units/L (34-104) H 07/07/18 12:28 Troponin I 0.05 ng/mL (< 0.04) H* 07/07/18 05:57 Serum Total Protein 5.8 g/dL (6.4-8.9) L 07/07/18 12:28 Albumin 2.6 g/dL (3.5-5.7) L 07/07/18 12:28 Albumin/Globulin Ratio 0.8 (1.1-2.2) L 07/07/18 12:28 Lipase 10 Units/L (11-82) L 07/06/18 20:38 Urine Clarity Cloudy (Clear) A 07/07/18 03:45 Urine Protein 30 mg/dL (Neg-Trace) H 07/07/18 03:45 Urine Ketones Trace mg/dL (Negative) H 07/07/18 03:45 Urine Blood Moderate (Negative) H 07/07/18 03:45 Urine Bilirubin Small (Negative) H 07/07/18 03:45 Urine Urobilinogen 2.0 mg/dL (Normal) H 07/07/18 03:45 Ur Leukocyte Esterase Large (Negative) H 07/07/18 03:45 Urine Microscopic RBC 3-5 per hpf (0-3) H 07/07/18 03:45 Urine Microscopic WBC TNTC per hpf (0-3) H 07/07/18 03:45 Ur Squamous Epith Cells Moderate per lpf (None-Few) H 07/07/18 03:45 Urine Bacteria Many per hpf (None-Few) H 07/07/18 03:45 Ur Culture Indicated? YES (NO) A 07/07/18 03:45 Enterobacteriac sp PCR DETECTED (Not Detect) A 07/06/18 21:10 E. coli (PCR) DETECTED (Not Detect) A 07/06/18 21:10 - Microbiology Findings Microbiology Findings: Microbiology, Last 48 Hours 07/07/18 03:45 Urine Culture - Final Urine,Clean Catch No growth. 07/06/18 21:10 Blood Culture - Preliminary Peripheral Venipuncture Gram Negative Alex 07/06/18 21:10 Blood Culture - Preliminary Peripheral Venipuncture Gram Negative Alex - Clinical Findings Intake & Output: Intake & Output 07/06/18 07/07/18 07/07/18 23:59 07:59 15:59 Intake Total 2100 / 2100 100 / 100 Output Total 650 / 650 600 / 600 Balance 1450 / 1450 -500 / -500 Weight 142.031 kg 142.2 kg Consult Discharge Plan - Plan [facility]errals: [facility] [Primary Care Provider[facility] - - Attending Attestation I saw and evaluated this patient and my medical decision-making was reviewed with the Resident Physician. I agree with the documented findings, disposition and treatment plan as described except to the extent set forth below. We independently had [id number] contact with the patient I spent 35 minutes of Critical Care time with this patient. It involved decision making of high complexity to assess, manipulate, and support vital organ system failure and/or to prevent further life threatening deterioration of the patient's condition. The time involved in the performance of separately reportable procedures was not counted toward critical care time. Patient seen and examined at bedside Labs, radiology, chart personally reviewed. Management was reviewed during multidisciplinary critical care rounds. 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 Patient if needs vasopressor levophed will be the ideal choice if the A. fib RVR is getting worse on levophed we will transition at that point to phenylephrine. Cards: Patient has diastolic heart failure with moderate pulmonary hypertension we will repeat an echo will trend troponins most likely reason for the shock is most likely septic shock. Atrial fibrillation with RVR secondary to hypovolemia and sepsis will do fluid hydration and will reassess in the meantime we will start on amiodarone drip as patient blood pressure is borderline secondary to Cardizem drip. FEN-GI: Patient nothing by mouth Renal: Labs and output reviewed acute kidney injury most likely secondary to hydronephrosis due to ureteral stone consult to nephrology. ID: complicated UTI with gram-negative bacteremia patient on Zosyn Heme/Onc: Endo: Glucose Monitored Integ/MSK: Skin Care per routine ICU Nursing Protocol to prevent ulcers. Lines: All lines examined without evidence of infection : Dispo: Critically ill high chance for circulatory and respiratory decline CODE: Full Code <Jatinder Vásquez - Last Filed: 07/07/18 16:58> Time of Encounter: 12:01 Assessment and Plan (1) Septic shock Current Visit: Yes Status: Acute Patient was tachycardic, tachypnic, hypotensive with an elevated lactic acid. blood cultures x2 grew gram negative rods Source of infection: obstructive uropathy s/p stone removal and ureteral stent placement post op day 0 Critical platelet levels of 29 INR 2.2 Plan - IV zosyn day 1 -Patient getting fluid boluses now, if not responsive will add central line - 2L 0.9% NS bolus - D-dimer and fibrinogen ordered due to concern of DIC - Trend lactic acid q6HR - Central line placement, consent obtained from emergency contact Reji Michel (brother) (2) Atrial fibrillation with RVR Current Visit: Yes Status: Acute etiology likely secondary to sepsis Was controlled with diltiazem, due to hypotension diltiazem was discontinued and amiodarone was started in order to maintain MAP. continue to monitor (3) Acute kidney injury Current Visit: Yes Status: Acute Obstructive uropathy from r sided 6 cm stone in UPJ - post renal BUN 69 Creatinine 4.23 ureteral stent placement should help resolve NEELAM continue to monitor strict I and O's IV fluids avoid nephrotoxins (4) COPD (chronic obstructive pulmonary disease) Current Visit: Yes Status: Chronic Poor oxygen saturation history of COPD on bipap levalbuterol q6 Qualifiers: COPD type: emphysema Emphysema type: unspecified Qualified Code(s): J43.9 - Emphysema, unspecified (5) Bacteremia Current Visit: Yes Status: Acute Gram negative rods on blood culture IV zosyn day 1 Received one dose of Rocephen in ED (6) Elevated troponin Status: Acute Demand ischemia in setting of sepsis troponin 0.05 will continue to follow (7) Hypotension Current Visit: Yes Status: Acute Most likely from septic shock 2L saline bolus appears to be responding consider vasopressors if needed continue to monitor Qualifiers: Hypotension type: unspecified hypotension type Qualified Code(s): I95.9 - Hypotension, unspecified (8) Obstruction of right ureteropelvic junction (UPJ) due to stone Current Visit: Yes Status: Acute s/p cystoscopy with stone extraction and ureteral stent placement (9) Type II diabetes mellitus Current Visit: Yes Status: Chronic Qualifiers: 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: 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 shelter insulin use status Diabetes mellitus complication status: with unspecified complications Qualified Code(s): E11.8 - Type 2 diabetes mellitus with unspecified complications (10) Cirrhosis Current Visit: Yes Status: Chronic Qualifiers: Hepatic cirrhosis type: unspecified hepatic cirrhosis Ascites presence: with ascites Qualified Code(s): K74.60 - Unspecified cirrhosis of liver; R18.8 - Other ascites (11) Diabetes mellitus Current Visit: No Status: Chronic History of Diabetes continue to monitor High dose SSI Qualifiers: Diabetes mellitus type: type 2 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: with shelter use Diabetes mellitus complication status: with neurologic complications Diabetes mellitus complication detail: with unspecified neuropathy Qualified Code(s): E11.40 - Type 2 diabetes mellitus with diabetic neuropathy, unspecified; Z79.4 - superintendent terminal (current) use of insulin (12) Thrombocytopenia Current Visit: No Status: Chronic In the setting of cirrhosis Current level 29 Platelets ordered in case of central line placement will perform central line if indicated during platelet infusion Have ordered workup for possible DIC (13) Lactic acidosis Current Visit: Yes Status: Acute 3.9 currently continue to monitor (14) DVT prophylaxis Current Visit: No Status: Acute heparin subcutaneous protonix for GI prophylaxis History of Present Illness Consult date: 07/07/18 Requesting physician: Dixie Caldwell Reason for consult: other (sepsis) Chief complaint: Bacteremia in the setting of obstructive uropathy History of present illness: Patient presented to the ED from the [place] with abdominal pain and weak and lightheaded. Patient was found to have obstructive uropathy with a 6 cm stone in the right UPJ. Urology then preformed a stone removal with placement of ureteral stent. Patient received one dose of rocephen in the ED. The patient was found to be tachycardic with elevated lactic acid. Blood cultures grew gram negative rods. Patient was transferred to the ICU for further care. IV zosyn was added for the bacteremia with gram negative rods. Patient was noted to be in a fib RVR and was given amiodarone in place of diltiazem. Past Med Surg Social Fam HX - Past Medical History Medical history: arthritis, atrial fibrillation, cirrhosis, COPD, diabetes, GERD, GI bleed, hepatitis, hyperlipidemia, hypertension, osteoporosis, RA, other Additional medical history: Hx hepatitis c, Psychiatric history: anxiety, PTSD - Past Surgical History Surgical History: non-contributory Additional surgical history: tumor removal - Social History Smoking Status: Never smoker Smokeless Tobacco Status: No Alcohol use: none Drug use: none - Family History Father History Unknown: Yes Hx Family Cancer: Yes All Systems: The remainder of the systems were reviewed and are negative Physical Examination Vital Signs: Vital Signs, Last 4 Hours Temp Pulse Resp BP Pulse Ox 07/07/18 11:00 101.9 F H 115 36 101/70 96 07/07/18 10:47 118 36 102/53 93 07/07/18 10:42 116 36 82/55 93 07/07/18 10:37 135 36 102/70 93 07/07/18 10:32 118 32 74/49 93 07/07/18 10:27 112 38 90/67 93 07/07/18 10:17 105 36 82/66 93 07/07/18 10:07 108 36 99/61 88 07/07/18 09:57 97.9 F 146 36 148/103 80 07/07/18 09:00 97.8 F 125 20 115/88 92 General appearance: appears uncomfortable Eyes: nonicteric Neck: no lymphadenopathy Auscultation: bilateral: clear Gastrointestinal: normoactive bowel sounds Extremities: no cyanosis Results - Laboratory Findings CBC and BMP: 07/07/18 12:28 07/07/18 12:28 ABG ABG pH 7.35 pH Units (7.32-7.45) 07/07/18 10:42 ABG pCO2 37 mmHg (35-45) 07/07/18 10:42 ABG pO2 70 mmHg (85-104) L 07/07/18 10:42 ABG O2 Saturation 93 % (95-98) L 07/07/18 10:42 PT/INR, D-dimer PT 24.3 Seconds (9.4-12.1) H 07/06/18 20:38 Abnormal lab findings: Abnormal lab results RBC 4.16 M/mcL (4.19-5.50) L 07/06/18 20:38 Hgb 12.5 g/dL (12.9-16.9) L 07/06/18 20:38 RDW 15.1 % (11.5-14.5) H 07/06/18 20:38 Plt Count 43 K/mcL (140-400) L 07/06/18 20:38 Lymphocytes # 0.3 K/mcL (0.6-4.6) L 07/06/18 20:38 Dohle Bodies Present (Not Present) A 07/06/18 20:38 Immature Plt Fraction 8.9 % (1.1-6.1) H 07/06/18 20:38 PT 24.3 Seconds (9.4-12.1) H 07/06/18 20:38 ABG pO2 70 mmHg (85-104) L 07/07/18 10:42 ABG HCO3 20 mEq/L (21-27) L 07/07/18 10:42 ABG O2 Saturation 93 % (95-98) L 07/07/18 10:42 ABG Base Excess -5 mEq/L (-2 to 3) L 07/07/18 10:42 Sodium 128 mEq/L (136-145) L 07/06/18 20:38 Chloride 92 mEq/L (98-107) L 07/06/18 20:38 BUN 69 mg/dL (8-23) H 07/06/18 20:38 Creatinine 4.23 mg/dL (0.70-1.30) H 07/06/18 20:38 Est GFR ( Amer) 17 (> 60) L 07/06/18 20:38 Est GFR (Non-Af Amer) 14 (> 60) L 07/06/18 20:38 Glucose 302 mg/dL (70-105) H 07/06/18 20:38 POC Glucose 284 mg/dL (70-99) H 07/07/18 04:55 Lactic Acid 3.8 mmol/L (0.5-2.2) H 07/06/18 21:42 Total Bilirubin 1.8 mg/dL (0.3-1.0) H 07/06/18 20:38 Direct Bilirubin 1.0 mg/dL (0.0-0.2) H 07/06/18 20:38 Troponin I 0.05 ng/mL (< 0.04) H* 07/07/18 05:57 Albumin 3.2 g/dL (3.5-5.7) L 07/06/18 20:38 Globulin 3.9 g/dL (2.4-3.5) H 07/06/18 20:38 Albumin/Globulin Ratio 0.8 (1.1-2.2) L 07/06/18 20:38 Lipase 10 Units/L (11-82) L 07/06/18 20:38 Urine Clarity Cloudy (Clear) A 07/07/18 03:45 Urine Protein 30 mg/dL (Neg-Trace) H 07/07/18 03:45 Urine Ketones Trace mg/dL (Negative) H 07/07/18 03:45 Urine Blood Moderate (Negative) H 07/07/18 03:45 Urine Bilirubin Small (Negative) H 07/07/18 03:45 Urine Urobilinogen 2.0 mg/dL (Normal) H 07/07/18 03:45 Ur Leukocyte Esterase Large (Negative) H 07/07/18 03:45 Urine Microscopic RBC 3-5 per hpf (0-3) H 07/07/18 03:45 Urine Microscopic WBC TNTC per hpf (0-3) H 07/07/18 03:45 Ur Squamous Epith Cells Moderate per lpf (None-Few) H 07/07/18 03:45 Urine Bacteria Many per hpf (None-Few) H 07/07/18 03:45 Ur Culture Indicated? YES (NO) A 07/07/18 03:45 Enterobacteriac sp PCR DETECTED (Not Detect) A 07/06/18 21:10 E. coli (PCR) DETECTED (Not Detect) A 07/06/18 21:10 - Microbiology Findings Microbiology Findings: Microbiology, Last 48 Hours 07/06/18 21:10 Blood Culture - Preliminary Peripheral Venipuncture Gram Negative Alex 07/06/18 21:10 Blood Culture - Preliminary Peripheral Venipuncture Gram Negative Alex - Clinical Findings Intake & Output: Intake & Output 07/06/18 07/07/18 07/07/18 23:59 07:59 15:59 Intake Total 2100 / 2100 0 / 0 Output Total 650 / 650 600 / 600 Balance 1450 / 1450 -600 / -600 Weight 142.031 kg 142.2 kg
[2018-07-07 12:45] LABS: Basophils % 0.1 %; Hematocrit 33.3 % (37.5-50.1); Immature Granulocytes % 1.9 % (0-4); Lymphocytes # 0.2 K/mcL (0.6-4.6); Lymphocytes % 1.7 %; Mean Corpuscular Hemoglobin 30.1 pg (28.0-33.3); Mean Platelet Volume 11.7 fL (9.4-12.4); Monocytes # 0.8 K/mcL (0.0-1.3); Monocytes % 7.1 %; Neutrophils # 9.9 K/mcL (1.6-8.9); Nucleated Red Blood Cells 0.3 /100 WBC (0); Red Blood Count 3.66 M/mcL (4.19-5.50); Red Cell Distribution Width 15.5 % (11.5-14.5); Segmented Neutrophils % 89.2 %
[2018-07-07 12:48] LABS: VBG Ionized Calcium 1.02 mmol/L (1.15-1.35)
[2018-07-07 12:54] LABS: INR 1.8
[2018-07-07 12:55] LABS: Platelet Count 29 K/mcL (140-400)
[2018-07-07 12:56] LABS: Activated Partial Thrombo Time 32.7 Seconds (26.0-36.0)
[2018-07-07] MEDS ORDERED: Piperacillin/Tazobactam 3.375 GM in 0.9 % Sodium Chloride Mini Bag 100 ML IVPB SCH (13:00)
[2018-07-07 13:07] LABS: Albumin 2.6 g/dL (3.5-5.7); Albumin/Globulin Ratio 0.8 (1.1-2.2); Bilirubin,Total 1.9 mg/dL (0.3-1.0); Calcium 7.7 mg/dL (8.6-10.3); Globulin 3.2 g/dL (2.4-3.5); Magnesium 1.2 mg/dL (1.6-2.6); Phosphorous 2.1 mg/dL (2.7-4.5); Potassium 3.6 mEq/L (3.5-5.1); Total Protein 5.8 g/dL (6.4-8.9)
[2018-07-07] MEDS: Pantoprazole 40 MG VIAL IVP SCH (13:16)
[2018-07-07] MEDS: *HR* Heparin 5,000 UNIT/ML VIAL SQ SCH ×2 (13:20→22:20)
[2018-07-07] MEDS: Piperacillin/Tazobactam 3.375 GM in 0.9 % Sodium Chloride Mini Bag 100 ML IVPB SCH (13:21)
[2018-07-07] MEDS ORDERED: *HR* Heparin 5,000 UNIT/ML VIAL SQ SCH (14:00)
[2018-07-07] MEDS ORDERED: D5% in Water 1,000 ML IVC PRN ×2 (14:07→19:57)
[2018-07-07] MEDS ORDERED: *HR* Dextrose 50 % in Water (Syg) 50 ML SYRINGE IVP PRN ×2 (14:07→19:57)
[2018-07-07] MEDS ORDERED: Dextrose Gel 15 GM/37.5 ML TUBE PO PRN ×4 (14:07→19:57)
[2018-07-07] MEDS ORDERED: Potassium Phosphate 44 MEQ in 0.9 % Sodium Chloride 250 ML IVPB PRN (14:08)
--- NOTE | 2018-07-07 14:09 | Nephrology Consult Note ---
Date of Encounter: 07/07/18 Time of Encounter: 13:45 Assessment and Plan (1) Acute kidney injury Current Visit: Yes Status: Acute Nonoliguric, multifactorial NEELAM with post-renal and sepsis contributing. I recommend following a renal protective and supportive strategy by avoiding nephrotoxins as able and dosing renally cleared Rx by GFR. I do not recommend urgent HD today, and suspect his SCr may improve s/p urologic procedure. Follow strict I/Os and daily weights. Sometimes after a postrenal obstruction is correcting, a patient could develop polyuria. Will continue to closely follow with you. (2) Obstructive uropathy Current Visit: Yes Status: Acute See above. Appreciate Urology. (3) Cirrhosis Current Visit: Yes Status: Chronic Chronic. Hx of HCV according to his chart. If his SCr does not correct, then I'd recommend checking Cryoglobulin and/or a serum RF (which is a faster to obtain surrogate marker for cyroglobulin). Sometime cryoglobulinemia could induce a MPGN. 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 History of Present Illness - Reason for Consult Consult date: 07/07/18 Acute Kidney Injury Requesting physician: Alyssa Farah - Chief Complaint NEELAM - History of Present Illness Avery Michel is a 72 y/o obese WM with a pmh of HCV, cirrhosis of the liver and et al who present with acute right sided hydronephrosis, sepsis and NEELAM. Nephrology was consulted with his severely elevated SCr. He was on BiPAP when seen/examined in the ICU, so his ability to provide a thorough history was limited. 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 He also denied taking OTC medications such as Advil, Aleve, Ibuprofen (NSAIDs). FHx: he denied having any relatives with ESRD. Further HPI was limited d/t his AMS. Past Med Surg Social Fam HX - Past Medical History Medical history: arthritis, atrial fibrillation, cirrhosis, COPD, diabetes, GERD, GI bleed, hepatitis, hyperlipidemia, hypertension, osteoporosis, RA, other Additional medical history: Hx hepatitis c, Psychiatric history: anxiety, PTSD - Past Surgical History Surgical History: non-contributory Additional surgical history: tumor removal - Social History Smoking Status: Never smoker Smokeless Tobacco Status: No Alcohol use: none Drug use: none - Family History Father History Unknown: Yes Hx Family Cancer: Yes Medications and Allergies Docusate [Colace] 200 mg PO DAILY PRN 10/23/15 [History] Gabapentin [Neurontin] 600 mg PO TID 10/23/15 [History] Diltiazem CD (24hr) [Cardizem CD] 180 mg PO DAILY 30 Days cap.er.24h 10/25/15 [Rx] Ferrous Sulfate 325 mg PO TID 07/30/16 [History] Ammonium Lactate [Rere-Hydrolac] 1 appl TP BID 07/07/18 [History] Atorvastatin [Lipitor] 20 mg PO HS 07/07/18 [History] Cholecalciferol (D-3) [Vitamin D] 1,000 unit PO DAILY 07/07/18 [History] FluocinoNIDE 0.05% CRM [Lidex] 1 appl TP DAILY 07/07/18 [History] Furosemide [Lasix] 40 mg PO DAILY 07/07/18 [History] Lidocaine 1 appl TP TID PRN 07/07/18 [History] Loratadine [Allergy Relief] 10 mg PO DAILY 07/07/18 [History] NALOXONE 4 MG Nasal [place] [Narcan] 4 mg NS AD 07/07/18 [History] Ondansetron HCl [Zofran] 4 mg PO Q8HR PRN 07/07/18 [History] Oxycodone HCl [Roxybond] 15 mg PO Q6H PRN 07/07/18 [History] Pantoprazole Sodium [Protonix] 40 mg PO DAILY 07/07/18 [History] Spironolactone [Aldactone] 12.5 mg PO DAILY 07/07/18 [History] Terbinafine HCl [Terbinafine] 1 appl TP BID 07/07/18 [History] Allergy/AdvReac Type Severity Reaction Status Date / Time No Known Allergies Allergy Verified 07/30/16 17:02 Review of Systems ROS unobtainable: due to mental status Exam - Vital Signs Vital signs: Initial Vital Signs Temp Pulse Resp BP Pulse Ox 98.5 F 127 31 108/65 87 07/06/18 20:23 07/06/18 20:23 07/06/18 20:23 07/06/18 20:23 07/06/18 20:23 Vital Signs - Last 8 Hours Temp Pulse Resp BP Pulse Ox 07/07/18 14:00 99.7 F H 98 24 80/62 97 07/07/18 13:00 103 24 97/71 95 07/07/18 12:00 115 28 90/63 96 07/07/18 11:00 101.9 F H 115 36 101/70 96 07/07/18 10:47 118 36 102/53 93 07/07/18 10:42 116 36 82/55 93 07/07/18 10:37 135 36 102/70 93 07/07/18 10:32 118 32 74/49 93 07/07/18 10:27 112 38 90/67 93 07/07/18 10:17 105 36 82/66 93 07/07/18 10:07 108 36 99/61 88 07/07/18 09:57 97.9 F 146 36 148/103 80 07/07/18 09:00 97.8 F 125 20 115/88 92 Intake and Output 07/06/18 07/07/18 07/07/18 23:59 07:59 15:59 Intake Total 2099 100 / 100 Output Total 650 / 650 600 / 600 Balance 1450 / 1450 -500 / -500 Intake: IV Fluids 2099 100 / 100 0.9 % Sodium Chloride 1,000 ML 2000 / 2000 @ 3750 mls/hr IVC .Q16M [facility] Rx# :[id number] Rocephin 1,000 MG In Water for inj. (sterile) 10 ML @ 600 mls/ hr IVP ONCE ONE Rx#:[id number] Amiodarone Premix 150mg/100mL 100 / 100 150 mg In 100 ml @ 300 mls/hr IVPB ONCE ONE Rx#:[id number] Zosyn 3.375 GM In 0.9 % Sodium 100 / 100 Chloride (Mini-Bag +) 100 ML @ 25 mls/hr IVPB ONCE ONE Rx#: [id number] Oral 0 / 0 0 / 0 Output: Urine 325 / 325 Estimated Blood Loss 0 / 0 Urine Amount (Catheter) 250 / 250 Catheter 325 / 325 350 / 350 Urethral (Drew) 325 / 325 Other: Weight 142.031 kg 142.2 kg Blood Glucose* 304 Patient Weight 07/07/18 23:59 Weight 142.2 kg - General Appearance General appearance: well-developed, appears started age, obese, chronically ill, fatigue, frail EENT: ATNC, mucous membranes moist Neck: supple Respiratory: course breath sounds Cardiology: edema (trace to 1+ pedal edema b/l), irregular rhythm, normal S1, normal S2 Gastrointestinal: normoactive bowel sounds, no guarding, obese Integumentary: warm and dry Neurologic: no focal deficit, confused, disoriented Musculoskeletal: no cyanosis, no clubbing Results - Lab Results 07/07/18 12:28 07/07/18 12:28 Most recent lab results ABG pH 7.35 pH Units (7.32-7.45) 07/07/18 10:42 ABG pCO2 37 mmHg (35-45) 07/07/18 10:42 ABG pO2 70 mmHg (85-104) L 07/07/18 10:42 ABG HCO3 20 mEq/L (21-27) L 07/07/18 10:42 ABG O2 Saturation 93 % (95-98) L 07/07/18 10:42 Calcium 7.7 mg/dL (8.6-10.3) L 07/07/18 12:28 Phosphorus 2.1 mg/dL (2.7-4.5) L 07/07/18 12:28 Magnesium 1.2 mg/dL (1.6-2.6) L 07/07/18 12:28 I reviewed his labs, vitals, imaging, progress notes, med list. Consult Discharge Plan - Plan Referrals: [facility] [Primary Care Provider] -
--- NOTE | 2018-07-07 14:22 | Cardiology Consult Note ---
<FazalWendiangela Parker - Last Filed: 07/07/18 15:05> Date of Encounter: 07/07/18 Time of Encounter: 14:00 Assessment and Plan (1) Atrial fibrillation with RVR Current Visit: Yes Status: Acute Per cardiology: -Known a.fib/flutter. -Previously on eliquis for anticoagulation. -Had been on cardizem in outpatient setting for rate control. -Currently a.fib RVR, average HR 119. -Now on amiodarone drip due to hypotension. -[id number] score 3 (age, HTN, CHF). Not currently on anticoagulation due to recent procedure, thrombocytopenia, elevated INRs. Ideally would recommend mcfp anticoagulation for CVA/embolic risk reduction. Recommend resuming if/when able. -Of note, INR 1.8-2.2 without coumadin. -Continue amiodarone drip. -Will continue to monitor. (2) Mitral stenosis Current Visit: Yes Status: Chronic Per cardiology: -TTE 12/2016 with LVEF 60-65%. Mild concentric left ventricular hypertrophy. Indeterminate diastolic function due to atrial fibrillation. Dilated right ventricle with normal systolic function. Severely dilated left atrium. Severely dilated right atrium. Moderately calcified aortic valve leaflets. Valve morphology not well visualized. Mild aortic stenosis. Moderate posterior mitral annular calcification with restricted motion of the posterior mitral valve leaflet. Moderate mitral stenosis. Mean gradient = 8 mmHg. Mild-moderate mitral regurgitation (eccentric, posteriorly directed). Mild pulmonic regurgitation. Moderate-severe pulmonary hypertension. Estimated RVSP = 59 mmHg. -Repeat TTE pending. 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 -No reported chest pain, however patient obtunded upon exam. -ECG with no acute ischemic changes noted. -TTE pending. -NOt on asa, heparin due to thrombocytopenia. not on BB due to hypotension. -Of note, INRs elevated, not on coumadin. -Demand ischemia in the setting of above. No cardiac rehab consult warranted. Discussion w patient/family: The assessment and plan as outlined above was discussed with the patient who expressed understanding and agreement. All questions were answered. Thank you for involving us in the care of your patient. Please call with any questions. Discussed and reviewed with . History of Present Illness Consult date: 07/07/18 Requesting physician: Dixie Caldwell Consult reason: a.fib RVR Chief complaint: abdominal pain History of present illness: Mr. Michel is a 72 year old male with a relevant past medical history of a.fib/flutter, anxiety, HTN, HLD, hepatitis C, cirrhosis. Patient is unresponsive to verbal and tactile stimuli at [facility]. HPI obtained from records. Per reports, patient presented to [place] medical history with complaints of abdominal pain. Patient was then transferred to [facility]. Patient underwent urgent cytosccopy with ureteral stent placement. Patient is currently in ICU, on Bipap. Unarrouseable to tactile and verbal stimuli. Past Med Surg Social Fam HX - Past Medical History Attestation: Yes The following information was validated with the patient. Source: old records reviewed, other (Unable to obtain medical history from patient. Medical records reviewed. ) Medical history: arthritis, atrial fibrillation, cirrhosis, COPD, diabetes, GERD, GI bleed, hepatitis, hyperlipidemia, hypertension, osteoporosis, RA, other Additional medical history: Hx hepatitis c, Psychiatric history: anxiety, PTSD - Past Surgical History Surgical History: non-contributory Additional surgical history: tumor removal - Social History Smoking Status: Never smoker Smokeless Tobacco Status: No Alcohol use: none Drug use: none - Family History Father History Unknown: Yes Hx Family Cancer: Yes Medications and Allergies RX: Docusate [Colace] 200 mg PO DAILY PRN 10/23/15 [History] RX: Gabapentin [Neurontin] 600 mg PO TID 10/23/15 [History] RX: Diltiazem CD (24hr) [Cardizem CD] 180 mg PO DAILY 30 Days cap.er.24h 10/25/15 [Rx] RX: Ferrous Sulfate 325 mg PO TID 07/30/16 [History] Ammonium Lactate [Rere-Hydrolac] 1 appl TP BID 07/07/18 [History] Cholecalciferol (D-3) [Vitamin D] 1,000 unit PO DAILY 07/07/18 [History] Furosemide [Lasix] 40 mg PO DAILY 07/07/18 [History] Loratadine [Allergy Relief] 10 mg PO DAILY 07/07/18 [History] NALOXONE 4 MG Nasal [place] [Narcan] 4 mg NS AD 07/07/18 [History] Ondansetron HCl [Zofran] 4 mg PO Q8HR PRN 07/07/18 [History] Oxycodone HCl [Roxybond] 15 mg PO Q6H PRN 07/07/18 [History] Pantoprazole Sodium [Protonix] 40 mg PO DAILY 07/07/18 [History] RX: Atorvastatin [Lipitor] 20 mg PO HS 07/07/18 [History] RX: FluocinoNIDE 0.05% CRM [Lidex] 1 appl TP DAILY 07/07/18 [History] RX: Lidocaine 1 appl TP TID PRN 07/07/18 [History] Spironolactone [Aldactone] 12.5 mg PO DAILY 07/07/18 [History] Terbinafine HCl [Terbinafine] 1 appl TP BID 07/07/18 [History] Allergy/AdvReac Type Severity Reaction Status Date / Time No Known Allergies Allergy Verified 07/30/16 17:02 All Systems Review: The remainder of the systems were reviewed and are negative - Cardiovascular Cardiovascular: as per HPI - Gastrointestinal Gastrointestinal: abdominal pain Physical Examination Vital Signs, Last 4 Hours Temp Pulse Resp BP Pulse Ox 07/07/18 14:00 99.7 F H 98 24 80/62 97 07/07/18 13:00 103 24 97/71 95 07/07/18 12:00 115 28 90/63 96 07/07/18 11:00 101.9 F H 115 36 101/70 96 07/07/18 10:47 118 36 102/53 93 07/07/18 10:42 116 36 82/55 93 07/07/18 10:37 135 36 102/70 93 07/07/18 10:32 118 32 74/49 93 07/07/18 10:27 112 38 90/67 93 07/07/18 10:17 105 36 82/66 93 General: Other (Obtunded) HEENT: Atraumatic, Normocephaly, Mucus Membranes Moist Neck: No JVD, Normal carotid pulses Cardiac: Normal S1 and S2, Other (Irregularly irregular. Diastolic murmur noted. ) Lungs: Other (Lung sounds diminshed throughout. ) Neuro: Other (Not arousable to tactile or verbal stimuli. ) Abdomen: Soft, Non-Tender Skin: No rashes noted on visualized skin Musculoskeletal: No Chest Wall Tenderness Extremities: No Clubbing, No Cyanosis, No Edema, Normal Pulses Results 07/07/18 12:28 07/07/18 12:28 Lab Results Impressions Abdomen/Pelvis CT 07/06/18 20:38 IMPRESSION: 1.6 cm stone at the right UPJ causes right obstructive uropathy. Liver nodularity consistent with cirrhosis. Cholelithiasis but no acute cholecystitis. Normal appendix. D/ / 07/07/2018 07:11:20 Kaitlin Tracy MD / barbara Interpreting Provider: Kaitlin Tracy MD Head CT 07/06/18 20:38 IMPRESSION: No acute intracranial abnormality. D/ / Carl Marks / Carl Marks Interpreting Provider: Carl Marks X-Ray 07/07/18 09:42 IMPRESSION: Appropriately positioned right ureteral stent. 10-11 mm calculus at the right UPJ unchanged from the CT. D/ / Cleve Galeana MD / Cleve Galeana MD Interpreting Provider: Cleve Galeana MD Chest X-Ray 07/07/18 10:28 IMPRESSION: Small right pleural effusion. Obscured costophrenic sulcus may be due to overlapping structures rather than effusion as no left effusion was appreciated on CT abdomen pelvis from 1 day prior. Enlarged cardiac silhouette correlates with prominent epicardial fat on comparison CT. Widened appearing mediastinal contours is favored to be related to technique, shallow inspiratory effort and prominent mediastinal fat. If there is concern for an acute thoracic abnormality, recommend CT. The findings were sent to the Radiology Results Communication Center at 10:42 am on 07/07/2018to be communicated to a licensed caregiver. D/ / Ede Stockton / Ede Stockton Interpreting Provider: Ede Stockton Active Medications Acetaminophen (Tylenol) 650 mg PO Q6HR PRN PRN Reason: Mild Pain/Fever Stop: 01/06/19 10:59 Hydrocodone Bitart/Acetaminophen ([place] 5-325 Mg) 1 tab PO Q6HR PRN PRN Reason: Pain Stop: 01/06/19 11:55 Dextrose/Water (Dextrose 50% (Syg)) 25 ml IVP AD PRN PRN Reason: Hypoglycemia Stop: 01/06/19 14:08 Glucagon (Glucagen) 1 mg IM ONCE PRN PRN Reason: Hypoglycemia Stop: 01/06/19 14:08 Glucose (Gluctose) 15 gm PO ONCE PRN PRN Reason: Hypoglycemia Stop: 01/06/19 14:08 Glucose (Gluctose) 30 gm PO ONCE PRN PRN Reason: Hypoglycemia Stop: 01/06/19 14:08 Heparin Sodium (Porcine) (Heparin) 5,000 unit SQ Q8HCO ASIM Stop: 01/06/19 14:01 Last Admin: 07/07/18 13:20 Dose: Not Given Amiodarone HCl/Dextrose (Amiodarone Drip Premix 360mg/200ml) 360 mg in 200 mls @ 33.333 mls/hr IVC ONCE ONE Stop: 07/07/18 17:32 Last Admin: 07/07/18 13:12 Dose: 1 mg/min, 33.333 mls/hr Amiodarone HCl/Dextrose (Amiodarone Drip Premix 360mg/200ml) 360 mg in 200 mls @ 16.667 mls/hr IVC CONT ASIM Stop: 01/06/19 17:01 Piperacillin Sod/Tazobactam (Sod 3.375 gm/ Sodium Chloride) 100 mls @ 25 mls/hr IVPB Q12H ASIM Stop: 01/06/19 13:01 Last Admin: 07/07/18 13:21 Dose: 25 mls/hr Dextrose (Dextrose 5%) 1,000 mls @ 100 mls/hr IVC .Q10H PRN PRN Reason: HYPOGLYCEMIA Stop: 01/06/19 14:08 Calcium Gluconate 1,000 mg/ (Sodium Chloride) 110 mls @ 220 mls/hr IVPB Q6HR PRN PRN Reason: Hypocalcemia Stop: 01/06/19 14:09 Magnesium Sulfate 2 gm/ Sodium (Chloride) 104 mls @ 52 mls/hr IVPB Q6H PRN PRN Reason: hypomagnesemia Stop: 01/06/19 14:09 Potassium Chloride (Potassium Chloride 10 Meq/100ml) 10 meq in 100 mls @ 100 mls/hr IVPB Q1H PRN PRN Reason: Potassium less than 4 Stop: 01/06/19 14:09 Potassium Phosphate 44 meq/ (Sodium Chloride) 260 mls @ 40 mls/hr IVPB Q10H PRN PRN Reason: Phosphate less than 3 Stop: 01/06/19 14:09 Insulin Human Lispro (Humalog) 0 units SQ Q4HR ASIM; Protocol Stop: 01/06/19 16:01 Levalbuterol HCl (Xopenex) 1.25 mg IH D2TSRUS ASIM Stop: 01/06/19 10:16 Naloxone HCl (Narcan) 0.4 mg IVP Q2MIN PRN PRN Reason: SEE COMMENTS Stop: 01/06/19 10:59 Naloxone HCl (Narcan) 0.4 mg IVP Q2MIN PRN PRN Reason: SEE COMMENTS Stop: 01/06/19 11:55 Ondansetron HCl (Zofran) 4 mg IVP Q6HR PRN PRN Reason: Nausea And Vomiting Stop: 01/06/19 11:55 Pantoprazole Sodium (Protonix) 40 mg IVP DAILY [facility] Stop: 01/06/19 12:01 Last Admin: 07/07/18 13:16 Dose: 40 mg Laboratory Tests 07/06/18 07/06/18 07/07/18 20:38 20:38 05:57 Hgb Plt Count 43 L Creatinine 4.23 H Magnesium Troponin I 0.05 H* 0.05 H* 07/07/18 07/07/18 12:28 12:28 Hgb 11.0 L D Plt Count 29 L* Creatinine 3.96 H Magnesium 1.2 L Troponin I - Imaging and Cardiology Chest Xray: report reviewed Echo: pending, report reviewed - EKG Interpretation EKG results cardiology: personally reviewed (ECG with a.fib RVR, HR 140.), other (Telemetry reviewed with average HR previous 12 hours noted to be 119, a.fib. PVCs noted.) Consult Discharge Plan - Plan [facility]errals: [facility]Primary Care Provider[facility] - <Nilesh Waite - Last Filed: 07/08/18 15:41> - Attending Attestation I have personally performed a face to face evaluation on this patient. I have reviewed and agree with the care plan. History and Exam by me shows: 9-year-old male with history of hypertension, hyperlipidemia, paroxysmal atrial fibrillation, hep C, liver cirrhosis with hepatocellular dysfunction elevated INR not on anticoagulation, status post urgent cystoscopy with ureteral stent placement for a stone possible underlying sepsis with A. fib RVR at this time. Patient has a preserved ejection fraction however have severe biatrial enlargement a dilated RV with normal function and mild mitral stenosis. He also has moderate severe pulmonary hypertension. Rate control of his atrial fibrillation has been difficult currently on amiodarone which may affect his liver further therefore not recommended long-term. She would have underlying culprit/sepsis and hydration may improve patient's rate. Consider switching as soon as possible to rate control medication and discontinuing amiodarone when hemodynamically more stable from underlying sepsis. Troponins are flat adynamic likely nonischemic with a preserved ejection fraction therefore unlikely cardiac etiology. Patient unresponsive with majority of history obtained from chart review. No indications for anticoagulation at this time due to hepatocellular dysfunction and throat cytopenia and is having hep C and liver cirrhosis. Assessment and Plan Discussion w patient/family: The assessment and plan as outlined above was discussed with the patient and/or family members who expressed understanding and agreement. All questions were answered. Thank you for involving us in the care of your patient. Please call with any questions. History of Present Illness History of present illness: Mr. Michel is a 72 year old male All Systems Review: The remainder of the systems were reviewed and are negative Physical Examination Vital Signs, Last 4 Hours Temp Pulse Resp BP Pulse Ox 07/08/18 13:00 77 18 101/71 96 07/08/18 12:00 97.9 F 93 18 113/85 96 Results 07/08/18 05:20 07/08/18 05:20 Lab Results 07/07/18 07/08/18 07/08/18 22:45 05:20 05:20 WBC 5.8 Hgb 10.7 L Hct 33.1 L Plt Count 36 L Sodium 131 L Potassium 4.2 Chloride 101 Carbon Dioxide 19 L BUN 77 H Creatinine 3.07 H Glucose 379 H Calcium 8.2 L Magnesium 1.8 Total Bilirubin 1.3 H AST 23 ALT 26 Alkaline Phosphatase 68 07/08/18 05:20 WBC Hgb Hct Plt Count Sodium Potassium Chloride Carbon Dioxide BUN Creatinine Glucose Calcium Magnesium 2.5 Total Bilirubin AST ALT Alkaline Phosphatase
[2018-07-07] MEDS ORDERED: Perflutren Lipid Microsphere 1.3 ML in 0.9 % Sodium Chloride 8.7 ML IVP ONE (14:27)
[2018-07-07] MEDS ORDERED: 0.9 % Sodium Chloride 250 ML ONE (14:47)
[2018-07-07 15:09] LABS: D-Dimer 2078 ng/mLFEU (0-500)
[2018-07-07 15:20] LABS: Fibrinogen 579 mg/dL (169-393)
[2018-07-07] MEDS: Levalbuterol Neb 1.25 MG/3 ML IH SCH ×2 (15:55→22:06)
--- NOTE | 2018-07-07 16:33 | Procedure Note ---
<Jatinder Vásquez W - Last Filed: 07/07/18 16:59> Date of procedure: 07/07/18 Pre-op diagnosis: septic shock Post-op diagnosis: same Procedure: Date: 07/07/18 Time: 16:00 Indication: Hemodynamic monitoring/Intravenous access Resident: Jatinder Vásquez D.O. and Cayden Alvarado D.O. Attending: Dr. Farah A time-out was completed verifying correct patient, procedure, site, positioning, and special equipment if applicable. The patient was placed in trendeleberg position. The patients right neck was prepped and draped in sterile fashion. 1% Lidocaine was used to anesthetize the surrounding skin area. A triple lumen 7-Georgian Cordis catheter was introduced into the the internal jugular using the Seldinger technique and under ultrasound guidance. 3 attempts were required to cannulate the vessel. The catheter was threaded smoothly over the guide wire and appropriate blood return was obtained. Each lumen of the catheter was evacuated of air and flushed with sterile saline. The catheter was then sutured in place to the skin and a sterile dressing applied. Perfusion to the extremity distal to the point of catheter insertion was checked and found to be adequate. Attending Dr. Farah was present for the entire procedure. Estimated Blood Loss: 3 mls The patient tolerated the procedure well. There was a small hemotoma noted at the procedure site, which was expected due to the patients coagulopathy. A post procedure X ray showed no sign of pneumothorax and catheter placement was confirmed to be in the right position. Anesthesia: local Surgeon: Cayden Alvarado Was there an animal care assistant present: Yes Business Applications Specialist: Jatinder Vásquez Estimated blood loss (cc): 3 Specimen: none Pathology: none sent Condition: critical Disposition: ICU <GaganAlyssa S - Last Filed: 07/07/18 17:03> Procedure: [I was present during the procedure the first two attempts was unsuccessful i did the third attempt it was successful.
[2018-07-07] MEDS: Insulin LISPRO 300 UNITS/3 ML VIAL SQ SCH ×2 (16:50→19:29)
[2018-07-07] MEDS ORDERED: Amiodarone Premix 360 MG/200 ML BAG IVC SCH (17:00)
[2018-07-07] MEDS: Amiodarone Premix 360 MG/200 ML BAG IVC SCH (18:26)
[2018-07-07 20:19] LABS: Estimated Average Glucose 209 mg/dl; Hemoglobin A1C 8.9 %
[2018-07-07] MEDS: Norepinephrine 4 MG in D5% in Water 250 ML IVC SCH (22:20)
[2018-07-07 23:02] LABS: VBG Ionized Calcium 1.04 mmol/L (1.15-1.35)
[2018-07-08] MEDS ORDERED: Insulin LISPRO 300 UNITS/3 ML VIAL SQ SCH
[2018-07-08] MEDS: Piperacillin/Tazobactam 3.375 GM in 0.9 % Sodium Chloride Mini Bag 100 ML IVPB SCH ×3 (00:11→23:52)
[2018-07-08] MEDS: Insulin LISPRO 300 UNITS/3 ML VIAL SQ SCH ×7 (00:12→23:58)
[2018-07-08] MEDS: Levalbuterol Neb 1.25 MG/3 ML IH SCH ×4 (03:47→22:34)
[2018-07-08 05:46] LABS: VBG Ionized Calcium 0.75 mmol/L (1.15-1.35)
[2018-07-08 05:46] LABS: Hemoglobin 10.7 g/dL (12.9-16.9)
[2018-07-08 05:47] LABS: Hematocrit 33.1 % (37.5-50.1); Immature Granulocytes % 0.7 % (0-4); Immature Platelets 10.4 % (1.1-6.1); Lymphocytes # 0.3 K/mcL (0.6-4.6); Lymphocytes % 5.2 %; Mean Corpuscular HGB Conc 32.3 g/dL (31.6-35.5); Mean Corpuscular Hemoglobin 29.9 pg (28.0-33.3); Mean Corpuscular Volume 92.5 fL (83.0-100.0); Mean Platelet Volume 12.2 fL (9.4-12.4); Monocytes # 0.3 K/mcL (0.0-1.3); Monocytes % 4.7 %; Red Blood Count 3.58 M/mcL (4.19-5.50); Red Cell Distribution Width 16.1 % (11.5-14.5); Segmented Neutrophils % 89.4 %
[2018-07-08 05:48] LABS: Neutrophils # 5.2 K/mcL (1.6-8.9); Platelet Count 36 K/mcL (140-400)
[2018-07-08 06:05] LABS: Albumin 2.9 g/dL (3.5-5.7); Albumin/Globulin Ratio 0.8 (1.1-2.2); Bilirubin,Direct 0.8 mg/dL (0.0-0.2); Bilirubin,Indirect 0.5 mg/dL (0.0-1.2); Bilirubin,Total 1.3 mg/dL (0.3-1.0); Calcium 8.2 mg/dL (8.6-10.3); Globulin 3.5 g/dL (2.4-3.5); Magnesium 2.5 mg/dL (1.6-2.6); Potassium 4.2 mEq/L (3.5-5.1); Total Protein 6.4 g/dL (6.4-8.9)
[2018-07-08] MEDS: *HR* Heparin 5,000 UNIT/ML VIAL SQ SCH (06:17)
[2018-07-08 06:30] LABS: Phosphorous 4.4 mg/dL (2.7-4.5)
[2018-07-08 06:39] LABS: VBG Ionized Calcium 1.06 mmol/L (1.15-1.35)
[2018-07-08] MEDS: Amiodarone Premix 360 MG/200 ML BAG IVC SCH ×2 (06:42→17:26)
[2018-07-08] MEDS ORDERED: Insulin DETEMIR 100 UNIT/ML X5UNITS SQ SCH ×2 (07:47→09:00)
[2018-07-08] MEDS: Pantoprazole 40 MG VIAL IVP SCH (07:53)
--- NOTE | 2018-07-08 08:03 | Pulmonology Progress Note ---
<Alyssa Farah S - Last Filed: 07/08/18 12:08> Objective PUL Vital signs: Last Vital Signs Temp 97.9 F 07/08/18 11:00 Pulse 86 07/08/18 10:00 Resp 18 07/08/18 10:00 BP 102/72 07/08/18 10:00 Pulse Ox 95 07/08/18 10:00 Results - Laboratory Findings CBC and BMP: 07/08/18 05:20 07/08/18 05:20 ABG ABG pH 7.35 pH Units (7.32-7.45) 07/07/18 10:42 ABG pCO2 37 mmHg (35-45) 07/07/18 10:42 ABG pO2 70 mmHg (85-104) L 07/07/18 10:42 ABG O2 Saturation 93 % (95-98) L 07/07/18 10:42 PT/INR, D-dimer PT 20.0 Seconds (9.4-12.1) H 07/07/18 12:28 D-Dimer 2078 ng/mLFEU (0-500) H 07/07/18 13:31 Abnormal lab findings: Abnormal lab results RBC 3.58 M/mcL (4.19-5.50) L 07/08/18 05:20 Hgb 10.7 g/dL (12.9-16.9) L 07/08/18 05:20 Hct 33.1 % (37.5-50.1) L 07/08/18 05:20 RDW 16.1 % (11.5-14.5) H 07/08/18 05:20 Plt Count 36 K/mcL (140-400) L 07/08/18 05:20 Lymphocytes # 0.3 K/mcL (0.6-4.6) L 07/08/18 05:20 Nucleated RBCs/100 WBC 0.3 /100 WBC (0) H 07/07/18 12:28 Dohle Bodies Present (Not Present) A 07/06/18 20:38 Immature Plt Fraction 10.4 % (1.1-6.1) H 07/08/18 05:20 PT 20.0 Seconds (9.4-12.1) H 07/07/18 12:28 Fibrinogen 579 mg/dL (169-393) H 07/07/18 13:31 D-Dimer 2078 ng/mLFEU (0-500) H 07/07/18 13:31 ABG pO2 70 mmHg (85-104) L 07/07/18 10:42 ABG HCO3 20 mEq/L (21-27) L 07/07/18 10:42 ABG O2 Saturation 93 % (95-98) L 07/07/18 10:42 ABG Base Excess -5 mEq/L (-2 to 3) L 07/07/18 10:42 Sodium 131 mEq/L (136-145) L 07/08/18 05:20 Carbon Dioxide 19 mEq/L (23-29) L 07/08/18 05:20 BUN 77 mg/dL (8-23) H 07/08/18 05:20 Creatinine 3.07 mg/dL (0.70-1.30) H 07/08/18 05:20 Est GFR ( Amer) 25 (> 60) L 07/08/18 05:20 Est GFR (Non-Af Amer) 20 (> 60) L 07/08/18 05:20 Glucose 379 mg/dL (70-105) H 07/08/18 05:20 POC Glucose 356 mg/dL (70-99) H 07/07/18 23:49 Hemoglobin A1c 8.9 % (-5.6) H 07/07/18 12:28 Calculated Osmolality 311 (280-300) H 07/08/18 05:20 Calcium 8.2 mg/dL (8.6-10.3) L 07/08/18 05:20 Venous Ioniz Calcium 1.06 mmol/L (1.15-1.35) L 07/08/18 06:35 Total Bilirubin 1.3 mg/dL (0.3-1.0) H 07/08/18 05:20 Direct Bilirubin 0.8 mg/dL (0.0-0.2) H 07/08/18 05:20 Troponin I 0.05 ng/mL (< 0.04) H* 07/07/18 05:57 Albumin 2.9 g/dL (3.5-5.7) L 07/08/18 05:20 Albumin/Globulin Ratio 0.8 (1.1-2.2) L 07/08/18 05:20 Lipase 10 Units/L (11-82) L 07/06/18 20:38 Urine Clarity Cloudy (Clear) A 07/07/18 03:45 Urine Protein 30 mg/dL (Neg-Trace) H 07/07/18 03:45 Urine Ketones Trace mg/dL (Negative) H 07/07/18 03:45 Urine Blood Moderate (Negative) H 07/07/18 03:45 Urine Bilirubin Small (Negative) H 07/07/18 03:45 Urine Urobilinogen 2.0 mg/dL (Normal) H 07/07/18 03:45 Ur Leukocyte Esterase Large (Negative) H 07/07/18 03:45 Urine Microscopic RBC 3-5 per hpf (0-3) H 07/07/18 03:45 Urine Microscopic WBC TNTC per hpf (0-3) H 07/07/18 03:45 Ur Squamous Epith Cells Moderate per lpf (None-Few) H 07/07/18 03:45 Urine Bacteria Many per hpf (None-Few) H 07/07/18 03:45 Ur Culture Indicated? YES (NO) A 07/07/18 03:45 Enterobacteriac sp PCR DETECTED (Not Detect) A 07/06/18 21:10 E. coli (PCR) DETECTED (Not Detect) A 07/06/18 21:10 - Microbiology Findings Microbiology Findings: Microbiology, Last 48 Hours 07/06/18 21:10 Blood Culture - Preliminary Peripheral Venipuncture Gram Negative Alex 07/07/18 03:45 Urine Culture - Final Urine,Clean Catch No growth. 07/06/18 21:10 Blood Culture - Preliminary Peripheral Venipuncture Gram Negative Alex - Clinical Findings Intake & Output: Intake & Output 07/07/18 07/08/18 07/08/18 23:59 07:59 15:59 Intake Total 3404 / 3404 517 / 517 Output Total 750 / 750 300 / 300 800 / 800 Balance 2654 / 2654 217 / 217 -800 / -800 Weight 148.8 kg Consult Discharge Plan - Plan [facility]errals: [facility] [Primary Care Provider] - - Attending Attestation - Attending Attestation I saw and evaluated this patient and my medical decision-making was reviewed with the Resident Physician. I agree with the documented findings, disposition and treatment plan as described except to the extent set forth below. We independently had [id number] contact with the patient Patient seen and examined at bedside Labs, radiology, chart personally reviewed. Management was reviewed during multidisciplinary critical care rounds. 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 Pulm: Patient has acceptable oxygenation and ventilation patient is on nasal cannula BiPAP at night. Cards: Patient has diastolic heart failure with moderate pulmonary hypertension repeat echo showed combined systolic and diastolic heart failure and this most likely due to to group 2 pulmonary hypertension secondary to cardiac cause patient also but have sleep disorder breathing which is untreated. Atrial fibrillation with RVR controlled with amiodarone drip was slowly transitioned to by mouth beta blockers and will stop amiodarone drip. FEN-GI: Advance diet as tolerated Renal: Labs and output reviewed acute kidney injury most likely secondary to hydronephrosis due to ureteral stone patient in the function is recovering no acute in indication for dialysis. ID: complicated UTI with gram-negative bacteremia patient on Zosyn Heme/Onc: Chemical thrombo-prophylaxis. Endo: Glucose Monitored Integ/MSK: Skin Care per routine ICU Nursing Protocol to prevent ulcers. Lines: All lines examined without evidence of infection : Dispo: Critically ill high chance for circulatory and respiratory decline <Jatinder Vásquez - Last Filed: 07/08/18 16:27> Date of Encounter: 07/08/18 Time of Encounter: 07:54 Assessment and Plan (1) Septic shock Current Visit: Yes Status: Acute Patient was initially tachycardic, hypotensive, tachypnic, with an elevated lactic acid. Patient remains hypotensive source of infection was kidney stone. patient is post op day 2 of stone removal with ureteral stent placement Blood cultures grew gram negative rods. sensitivities still pending IV zosyn day 2 Lactic acid has normalized continue levophed to maintain pressure (2) Atrial fibrillation with RVR Current Visit: Yes Status: Acute Etiology likely secondary to sepsis Cardiology consulted appreciate recs Per cardiology continue amiodarone for short term recommends beta florian when patient's BP can tolerate Patient was previously on Cardizem for rate contol Currently not on anticoagulation due thrombocytopenia (3) Acute kidney injury Current Visit: Yes Status: Acute Likely from obstructive uropathy Post op day 1 from stone removal and ureteral stent placement Nephrology onboard appreciate recs Per nephro avoid nephrotoxins and continue strict I&O's and daily weights Maintenance fluids started (4) COPD (chronic obstructive pulmonary disease) Current Visit: Yes Status: Chronic chronic O2 saturation 94% 3L nasal cannula levalbuterol q6HR Qualifiers: COPD type: emphysema Emphysema type: unspecified Qualified Code(s): J43.9 - Emphysema, unspecified (5) Hypotension Current Visit: Yes Status: Acute Likely from septic shock continue levophed as needed maintain MAP >75 on maintenance fluids continue to monitor Qualifiers: Hypotension type: unspecified hypotension type Qualified Code(s): I95.9 - Hypotension, unspecified (6) Bacteremia Current Visit: Yes Status: Acute Gram negative alex on blood culture likely from obstructive uropathy sensitivities pending zosyn day 2 (7) Elevated troponin Status: Acute Demand ischemia in the setting of sepsis troponin 0.05 which is unchanged from previous (8) Obstruction of right ureteropelvic junction (UPJ) due to stone Current Visit: Yes Status: Acute resolved post op day 1 from cystoscopy with stone removal and ureteral stent plascement improving voids strict I&Os (9) Type II diabetes mellitus Current Visit: Yes Status: Chronic History of Diabetes continue to monitor Diet started High dose SSI 20 mg basal levamir Qualifiers: Diabetes mellitus usp insulin use: unspecified usp insulin use status Diabetes mellitus complication status: with unspecified complications Qualified Code(s): E11.8 - Type 2 diabetes mellitus with unspecified complications (10) Cirrhosis Current Visit: Yes Status: Chronic Chronic History of hepatitis C per nephrology if SCr does not correct check cryoglobin and/or serum RF Qualifiers: Hepatic cirrhosis type: unspecified hepatic cirrhosis Ascites presence: with ascites Qualified Code(s): K74.60 - Unspecified cirrhosis of liver; R18.8 - Other ascites (11) Thrombocytopenia Current Visit: No Status: Chronic platelets 36 Most likey due to cirrhosis and/or sepsis D?C heparin as DVT prophylaxis start EPCDs (12) Lactic acidosis Current Visit: Yes Status: Acute resolved (13) DVT prophylaxis Current Visit: No Status: Acute EPCDs Subjective Principal diagnosis: septic shock Interval history: Today patient has shown clinical improvement. he is no longer encephalopathic and is A&Ox3. Patient remains to be hypotensive requiring levophed. Patient has been followwed by cardiology and by nephrology. Diet and fluids are started this AM. IV zosyn day 2. obstructive uropathy has been resolved but wwe are continuing to monitor I and O's. creatinine is slightly decreasing at 3.07 today. Patient still requiring amiodarone and not able to take his regular cardizem. Objective PUL Vital signs: Last Vital Signs Temp 96.8 F L 07/08/18 03:56 Pulse 77 07/08/18 06:00 Resp 18 07/08/18 06:00 BP 94/71 07/08/18 06:00 Pulse Ox 94 07/08/18 06:00 General appearance: no acute distress, alert Eyes: nonicteric ENT: oropharynx dry Neck: supple Effort: normal Cardiovascular: murmur noted (diastolic) Gastrointestinal: normoactive bowel sounds, soft, non-tender, other (mild distention) mood appropriate, affect normal Results - Laboratory Findings CBC and BMP: 07/08/18 05:20 07/08/18 05:20 ABG ABG pH 7.35 pH Units (7.32-7.45) 07/07/18 10:42 ABG pCO2 37 mmHg (35-45) 07/07/18 10:42 ABG pO2 70 mmHg (85-104) L 07/07/18 10:42 ABG O2 Saturation 93 % (95-98) L 07/07/18 10:42 PT/INR, D-dimer PT 20.0 Seconds (9.4-12.1) H 07/07/18 12:28 D-Dimer 2078 ng/mLFEU (0-500) H 07/07/18 13:31 Abnormal lab findings: Abnormal lab results RBC 3.58 M/mcL (4.19-5.50) L 07/08/18 05:20 Hgb 10.7 g/dL (12.9-16.9) L 07/08/18 05:20 Hct 33.1 % (37.5-50.1) L 07/08/18 05:20 RDW 16.1 % (11.5-14.5) H 07/08/18 05:20 Plt Count 36 K/mcL (140-400) L 07/08/18 05:20 Lymphocytes # 0.3 K/mcL (0.6-4.6) L 07/08/18 05:20 Nucleated RBCs/100 WBC 0.3 /100 WBC (0) H 07/07/18 12:28 Dohle Bodies Present (Not Present) A 07/06/18 20:38 Immature Plt Fraction 10.4 % (1.1-6.1) H 07/08/18 05:20 PT 20.0 Seconds (9.4-12.1) H 07/07/18 12:28 Fibrinogen 579 mg/dL (169-393) H 07/07/18 13:31 D-Dimer 2078 ng/mLFEU (0-500) H 07/07/18 13:31 ABG pO2 70 mmHg (85-104) L 07/07/18 10:42 ABG HCO3 20 mEq/L (21-27) L 07/07/18 10:42 ABG O2 Saturation 93 % (95-98) L 07/07/18 10:42 ABG Base Excess -5 mEq/L (-2 to 3) L 07/07/18 10:42 Sodium 131 mEq/L (136-145) L 07/08/18 05:20 Carbon Dioxide 19 mEq/L (23-29) L 07/08/18 05:20 BUN 77 mg/dL (8-23) H 07/08/18 05:20 Creatinine 3.07 mg/dL (0.70-1.30) H 07/08/18 05:20 Est GFR ( Amer) 25 (> 60) L 07/08/18 05:20 Est GFR (Non-Af Amer) 20 (> 60) L 07/08/18 05:20 Glucose 379 mg/dL (70-105) H 07/08/18 05:20 POC Glucose 356 mg/dL (70-99) H 07/07/18 23:49 Hemoglobin A1c 8.9 % (-5.6) H 07/07/18 12:28 Calculated Osmolality 311 (280-300) H 07/08/18 05:20 Calcium 8.2 mg/dL (8.6-10.3) L 07/08/18 05:20 Venous Ioniz Calcium 1.06 mmol/L (1.15-1.35) L 07/08/18 06:35 Total Bilirubin 1.3 mg/dL (0.3-1.0) H 07/08/18 05:20 Direct Bilirubin 0.8 mg/dL (0.0-0.2) H 07/08/18 05:20 Troponin I 0.05 ng/mL (< 0.04) H* 07/07/18 05:57 Albumin 2.9 g/dL (3.5-5.7) L 07/08/18 05:20 Albumin/Globulin Ratio 0.8 (1.1-2.2) L 07/08/18 05:20 Lipase 10 Units/L (11-82) L 07/06/18 20:38 Urine Clarity Cloudy (Clear) A 07/07/18 03:45 Urine Protein 30 mg/dL (Neg-Trace) H 07/07/18 03:45 Urine Ketones Trace mg/dL (Negative) H 07/07/18 03:45 Urine Blood Moderate (Negative) H 07/07/18 03:45 Urine Bilirubin Small (Negative) H 07/07/18 03:45 Urine Urobilinogen 2.0 mg/dL (Normal) H 07/07/18 03:45 Ur Leukocyte Esterase Large (Negative) H 07/07/18 03:45 Urine Microscopic RBC 3-5 per hpf (0-3) H 07/07/18 03:45 Urine Microscopic WBC TNTC per hpf (0-3) H 07/07/18 03:45 Ur Squamous Epith Cells Moderate per lpf (None-Few) H 07/07/18 03:45 Urine Bacteria Many per hpf (None-Few) H 07/07/18 03:45 Ur Culture Indicated? YES (NO) A 07/07/18 03:45 Enterobacteriac sp PCR DETECTED (Not Detect) A 07/06/18 21:10 E. coli (PCR) DETECTED (Not Detect) A 07/06/18 21:10 - Microbiology Findings Microbiology Findings: Microbiology, Last 48 Hours 07/07/18 03:45 Urine Culture - Final Urine,Clean Catch No growth. 07/06/18 21:10 Blood Culture - Preliminary Peripheral Venipuncture Gram Negative Alex 07/06/18 21:10 Blood Culture - Preliminary Peripheral Venipuncture Gram Negative Alex - Clinical Findings Intake & Output: Intake & Output 07/07/18 07/07/18 07/08/18 15:59 23:59 07:59 Intake Total 1412 / 1412 3404 / 3404 517 / 517 Output Total 600 / 600 750 / 750 300 / 300 Balance 812 / 812 2654 / 2654 217 / 217 Weight 148.8 kg
[2018-07-08] MEDS: 0.9 % Sodium Chloride 1,000 ML IVC SCH ×2 (08:08→17:26)
[2018-07-08 08:28] LABS: Adenovirus Not Detected (Not Detect); Bordetella Pertussis Not Detected (Not Detect); Chlamydophila pneumoniae Not Detected (Not Detect); Coronavirus 229E Not Detected (Not Detect); Coronavirus HKU1 Not Detected (Not Detect); Coronavirus NL63 Not Detected (Not Detect); Coronavirus OC43 Not Detected (Not Detect); Human Metapneumovirus Not Detected (Not Detect); Human Rhinovirus/Enterovirus Not Detected (Not Detect); Influenza A Subtype 2009 H1 Not Detected (Not Detect); Influenza A Untypeable Not Detected (Not Detect); Influenza B Not Detected (Not Detect); Mycoplasma pneumoniae Not Detected (Not Detect); Parainfluenza Virus 1 Not Detected (Not Detect); Parainfluenza Virus 2 Not Detected (Not Detect); Parainfluenza Virus 3 Not Detected (Not Detect); Parainfluenza Virus 4 Not Detected (Not Detect); Respiratory Syncytial Virus Not Detected (Not Detect)
[2018-07-08] MEDS ORDERED: NON-FORMULARY MEDICATION 1 EACH EACH (Pantoprazole Sodium [Protonix] 40 MG) PO SCH (09:00)
--- NOTE | 2018-07-08 11:27 | Cardiology Progress Note ---
Date of Encounter: 07/08/18 Time of Encounter: 10:30 Assessment and Plan (1) Atrial fibrillation with RVR Current Visit: Yes Status: Acute Per cardiology: -Known a.fib/flutter. -Previously on eliquis for anticoagulation. -Had been on cardizem in outpatient setting for rate control. -Currently a.fib, average HR 79. -Now on amiodarone drip due to hypotension. -[id number] score 3 (age, HTN, CHF). Not currently on anticoagulation due to recent procedure, thrombocytopenia, elevated INRs. Ideally would recommend senior living anticoagulation for CVA/embolic risk reduction. Recommend resuming if/when able. -Of note, INR 1.8-2.2 without coumadin. 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 -Recommend addition of BB when BP will tolerate. Can uptitrate for average HR less than 100 as BP will tolerate. -Cardiology will sign off, please reconsult if needed. Will arrange close outpatient follow up with cardiology (2) Mitral stenosis Current Visit: Yes Status: Chronic Per cardiology: -TTE 12/2016 with LVEF 60-65%. Mild concentric left ventricular hypertrophy. Indeterminate diastolic function due to atrial fibrillation. Dilated right ventricle with normal systolic function. Severely dilated left atrium. Severely dilated right atrium. Moderately calcified aortic valve leaflets. Valve morphology not well visualized. Mild aortic stenosis. Moderate posterior mitral annular calcification with restricted motion of the posterior mitral valve leafl et. Moderate mitral stenosis. Mean gradient = 8 mmHg. Mild-moderate mitral regurgitation (eccentric, posteriorly directed). Mild pulmonic regurgitation. Moderate-severe pulmonary hypertension. Estimated RVSP = 59 mmHg. -TTE this admission with LVEF 50%, mild , mild MS, moderate-severe PH. 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 -Patient denies chest pain. -ECG with no acute ischemic changes noted. -TTE with LVEF 50%, previously 60-65%. -NOt on asa, heparin due to thrombocytopenia. not on BB due to hypotension. -Of note, INRs elevated, not on coumadin. -Demand ischemia in the setting of above. No cardiac rehab consult warranted. -With mild reduction in LVEF, consider outpatient ischemic evaluation once recovered from acute illness and if thrombocytopenia improves back to baseline. Discussion w patient/family: The assessment and plan as outlined above was discussed with the patient who expressed understanding and agreement. All questions were answered. Thank you for involving us in the care of your patient. Please call with any questions. Discussed and reviewed with . Subjective Principal diagnosis: septic shock Interval history: Patient laying in bed. Awake, alert and oriented this morning. Patient's only complaint is the breathing treatment, did not like the mask on his face. Objective Vital Signs, Last 4 Hours Temp Pulse Resp BP Pulse Ox 07/08/18 10:00 86 18 102/72 95 07/08/18 09:30 16 96 07/08/18 09:18 80 07/08/18 09:00 85 18 107/73 95 07/08/18 08:00 97.9 F 80 18 98/71 97 General: Conversant, No Apparent Distress HEENT: Atraumatic, Normocephaly, Mucus Membranes Moist Neck: No JVD, Normal carotid pulses Cardiac: Normal S1 and S2, No Murmur, Other (Irregularly irregular) Lungs: Other (Expiratory wheezes noted. ) Neuro: Alert and responsive, No focal deficits noted Abdomen: Soft, Non-Tender Skin: No rashes noted on visualized skin Musculoskeletal: No Chest Wall Tenderness Extremities: No Clubbing, No Cyanosis, No Edema, Normal Pulses Results 07/08/18 05:20 07/08/18 05:20 Lab Results Impressions Abdomen/Pelvis CT 07/06/18 20:38 IMPRESSION: 1.6 cm stone at the right UPJ causes right obstructive uropathy. Liver nodularity consistent with cirrhosis. Cholelithiasis but no acute cholecystitis. Normal appendix. D/ / 07/07/2018 07:11:20 Kaitlin Tracy MD / barbara Interpreting Provider: Kaitlin Tracy MD Abdomen Ultrasound 07/07/18 11:38 IMPRESSION: 1. No significant free fluid within visualized abdomen. 2. Cholelithiasis. D/ / Alpesh Valdes MD / Alpesh Valdes MD Interpreting Provider: Alpesh Valdes MD Echocardiogram 07/07/18 12:01 Impressions: LVEF 50%. Normal LV chamber size and low normal function. Mild concentric left ventricular hypertrophy. Indeterminate diastolic function. Dilated right ventricle with normal function. Severely dilated left atrium. Grossly, moderately calcified aortic valve leaflets. Mild aortic stenosis. Mean gradient 17 mmHg. Moderate posterior mitral annular calcification. Mild mitral stenosis. Mean gradient 5 mmHg (HR 108 bpm). Mild tricuspid regurgitation. Moderate to severe pulmonary hypertension. Chest X-Ray 07/07/18 16:33 IMPRESSION: Mild pulmonary vascular congestion, stable. Stable cardiomegaly. No pneumothorax. D/ / Dylan Espino MD / Dylan Espino MD Interpreting Provider: Dylan Espino MD Retroperitoneum Ultrasound 07/07/18 21:00 IMPRESSION: No evidence of hydronephrosis. D/ / James Saravia MD / James Saravia MD Interpreting Provider: James Saravia MD Active Medications Acetaminophen (Tylenol) 650 mg PO Q6HR PRN PRN Reason: Mild Pain/Fever Stop: 01/06/19 10:59 Hydrocodone Bitart/Acetaminophen ([place] 5-325 Mg) 1 tab PO Q6HR PRN PRN Reason: Pain Stop: 01/06/19 11:55 Atorvastatin Calcium (Lipitor) 20 mg PO HS ASIM Stop: 01/06/19 21:01 Last Admin: 07/07/18 22:21 Dose: Not Given Dextrose/Water (Dextrose 50% (Syg)) 25 ml IVP AD PRN PRN Reason: Hypoglycemia Stop: 01/06/19 14:08 Ferrous Sulfate (Ferrous Sulfate) 325 mg PO TIDWM ASIM Stop: 01/06/19 21:01 Last Admin: 07/08/18 07:53 Dose: 325 mg Glucagon (Glucagen) 1 mg IM ONCE PRN PRN Reason: Hypoglycemia Stop: 01/06/19 14:08 Glucose (Gluctose) 15 gm PO ONCE PRN PRN Reason: Hypoglycemia Stop: 01/06/19 14:08 Glucose (Gluctose) 30 gm PO ONCE PRN PRN Reason: Hypoglycemia Stop: 01/06/19 14:08 Amiodarone HCl/Dextrose (Amiodarone Drip Premix 360mg/200ml) 360 mg in 200 mls @ 16.667 mls/hr IVC CONT ASIM Stop: 01/06/19 17:01 Last Admin: 07/08/18 06:42 Dose: 0.5 mg/min, 16.667 mls/hr Piperacillin Sod/Tazobactam (Sod 3.375 gm/ Sodium Chloride) 100 mls @ 25 mls/hr IVPB Q12H ASIM Stop: 01/06/19 13:01 Last Infusion: 07/08/18 04:11 Dose: Infused Dextrose (Dextrose 5%) 1,000 mls @ 100 mls/hr IVC .Q10H PRN PRN Reason: HYPOGLYCEMIA Stop: 01/06/19 14:08 Calcium Gluconate 1,000 mg/ (Sodium Chloride) 110 mls @ 220 mls/hr IVPB Q6HR PRN PRN Reason: Hypocalcemia Stop: 01/06/19 14:09 Last Admin: 07/08/18 07:42 Dose: 220 mls/hr Magnesium Sulfate 2 gm/ Sodium (Chloride) 104 mls @ 52 mls/hr IVPB Q6H PRN PRN Reason: hypomagnesemia Stop: 01/06/19 14:09 Last Infusion: 07/08/18 02:58 Dose: Infused Potassium Chloride (Potassium Chloride 10 Meq/100ml) 10 meq in 100 mls @ 100 mls/hr IVPB Q1H PRN PRN Reason: Potassium less than 4 Stop: 01/06/19 14:09 Last Infusion: 07/07/18 20:26 Dose: Infused Potassium Phosphate 44 meq/ (Sodium Chloride) 260 mls @ 40 mls/hr IVPB Q10H PRN PRN Reason: Phosphate less than 3 Stop: 01/06/19 14:09 Last Infusion: 07/07/18 23:17 Dose: Infused Norepinephrine Bitartrate 4 mg (/ Dextrose) 254 mls @ 1.91 mls/hr IVC CONT [facility]; Protocol Stop: 01/06/19 16:56 Last Titration: 07/08/18 00:16 Dose: 1 mcg/min, 3.81 mls/hr Sodium Chloride (0.9 % Sodium Chloride) 1,000 mls @ 100 mls/hr IVC .Q10H [facility] Stop: 07/09/18 03:59 Last Admin: 07/08/18 08:08 Dose: 100 mls/hr Insulin Detemir (Levemir) 20 unit SQ DAILY [facility] Stop: 01/07/19 09:01 Last Admin: 07/08/18 08:27 Dose: 20 unit Insulin Human Lispro (Humalog) 0 units SQ Q4HR [facility]; Protocol Stop: 01/06/19 16:01 Last Admin: 07/08/18 07:46 Dose: 14 units Levalbuterol HCl (Xopenex) 1.25 mg IH [id number] [facility] Stop: 01/06/19 10:16 Last Admin: 07/08/18 09:30 Dose: 1.25 mg Naloxone HCl (Narcan) 0.4 mg IVP Q2MIN PRN PRN Reason: SEE COMMENTS Stop: 01/06/19 11:55 Ondansetron HCl (Zofran) 4 mg IVP Q6HR PRN PRN Reason: Nausea And Vomiting Stop: 01/06/19 11:55 Pantoprazole Sodium (Protonix) 40 mg IVP DAILY [facility] Stop: 01/06/19 12:01 Last Admin: 07/08/18 07:53 Dose: 40 mg Laboratory Tests 07/08/18 07/08/18 05:20 05:20 Hgb 10.7 L Plt Count 36 L Creatinine 3.07 H - Imaging and Cardiology Chest Xray: report reviewed Echo: report reviewed - EKG Interpretation EKG results cardiology: other (Telemetry reviewed with average HR previous 12 hours noted to be 79, a.fib. PVCs noted.) Consult Discharge Plan - Plan Referrals: [facility] [Primary Care Provider] -
--- NOTE | 2018-07-08 11:38 | Sepsis Event Note ---
Sepsis Reassessment Note - Evaluation Sepsis Screen: No Definite Risk Current Stage of Sepsis: septic shock Possible Source of Sepsis: genitourinary - Focused Exam Date of Encounter: 07/07/18 Time of Encounter: 16:00 Vital Signs: Vital Signs Temp Pulse Resp BP Pulse Ox 07/08/18 10:00 86 18 102/72 95 07/08/18 09:30 16 96 07/08/18 09:18 80 07/08/18 09:00 85 18 107/73 95 07/08/18 08:00 97.9 F 80 18 98/71 97 07/08/18 07:00 80 18 91/66 97 07/08/18 06:00 77 18 94/71 94 07/08/18 05:00 80 18 105/69 92 07/08/18 04:00 80 18 101/75 93 07/08/18 03:56 96.8 F L 07/08/18 03:47 16 97/69 92 07/08/18 03:00 80 18 102/74 94 07/08/18 02:00 79 16 92/70 96 07/08/18 01:00 77 18 94/76 96 07/08/18 00:05 76 07/08/18 00:00 75 18 83/70 96 07/07/18 23:57 97.7 F Respiratory Exam: Present: crackles (bilateral basilar crackles ) Cardiovascular Exam: Present: irregulary irregular Capillary Refill: < 2 seconds Peripheral Pulse Strength: 2+ slightly diminished Peripheral Pulse Location: Radial Skin Exam: normal turgor
--- NOTE | 2018-07-08 13:18 | Nephrology Progress Note ---
Date of Encounter: 07/08/18 Time of Encounter: 07:25 - Assessment and Plan (1) Acute kidney injury Status: Acute Renal function improving s/p urteral stent and thus I do not recommend starting MEDICAL STAFF CREDENTIALING COORDINATOR today. Continue to follow a renal supportive strategy. Thank you. I recommend following a renal protective and supportive strategy by avoiding nephrotoxins as able and dosing renally cleared Rx by GFR. I do not recommend urgent HD today, and suspect his SCr may improve s/p urologic procedure. Follow strict I/Os and daily weights. Sometimes after a postrenal obstruction is correcting, a patient could develop polyuria. Will continue to closely follow with you. (2) Obstructive uropathy Status: Acute See above. Appreciate Urology. (3) Cirrhosis Status: Chronic Chronic. Hx of HCV according to his chart. Qualifiers: Hepatic cirrhosis type: unspecified hepatic cirrhosis Ascites presence: with ascites Qualified Code(s): K74.60 - Unspecified cirrhosis of liver; R18.8 - Other ascites (4) Thrombocytopenia Status: Chronic Suspect his splenic sequestration from his cirrhosis and/or his sepsis is contributing. Subjective Principal diagnosis: septic shock Interval history: Pt was seen and examined. He reported feeling somewhat more awake, and did not affirm CP or new abd pain. Objective - Vital Signs Vital signs: Vital Signs Temp Pulse Resp BP Pulse Ox 07/08/18 12:00 97.9 F 93 18 113/85 96 07/08/18 11:00 97.9 F 82 18 98/67 96 07/08/18 10:00 86 18 102/72 95 07/08/18 09:30 16 96 07/08/18 09:18 80 07/08/18 09:00 85 18 107/73 95 07/08/18 08:00 97.9 F 80 18 98/71 97 07/08/18 07:00 80 18 91/66 97 07/08/18 06:00 77 18 94/71 94 07/08/18 05:00 80 18 105/69 92 07/08/18 04:00 80 18 101/75 93 07/08/18 03:56 96.8 F L 07/08/18 03:47 16 97/69 92 07/08/18 03:00 80 18 102/74 94 07/08/18 02:00 79 16 92/70 96 07/08/18 01:00 77 18 94/76 96 07/08/18 00:05 76 07/08/18 00:00 75 18 83/70 96 07/07/18 23:57 97.7 F 07/07/18 23:00 82 21 98/73 96 07/07/18 22:06 18 84/65 96 07/07/18 22:00 89 22 84/65 95 07/07/18 21:00 80 20 113/76 96 07/07/18 20:00 90 22 123/97 92 07/07/18 19:59 94 07/07/18 19:15 97.5 F L 07/07/18 19:00 87 22 103/81 95 07/07/18 18:00 86 14 99/74 97 07/07/18 17:00 86 20 86/67 97 07/07/18 16:38 98.8 F 98 16 107/71 95 07/07/18 16:01 94 22 82/65 96 07/07/18 16:00 98.8 F 07/07/18 15:55 98.8 F 103 20 92/65 96 07/07/18 15:41 98.8 F 103 20 88/57 97 07/07/18 15:38 98.8 F 98 20 94/66 96 07/07/18 15:26 98.8 F 103 22 79/60 96 07/07/18 15:00 107 20 78/63 96 07/07/18 14:00 99.7 F H 98 24 80/62 97 07/07/18 13:55 20 80/52 96 Intake and Output 07/07/18 07/08/18 07/08/18 23:59 07:59 15:59 Intake Total 3404 / 3404 517 / 517 Output Total 750 / 750 300 / 300 800 / 800 Balance 2654 / 2654 217 / 217 -800 / -800 Intake: IV Fluids 2174 / 2174 517 / 517 0.9 % Sodium Chloride 1,000 ML 1000 / 1000 @ 999 mls/hr IVC .Q1H1M ASIM Rx# :[id number] Amiodarone Drip Premix 360mg/ 200 / 200 200 / 200 200mL 360 mg In 200 ml @ 0.5 MG /MIN 16.667 mls/hr IVC CONT ASIM Rx#:[id number] Levophed 4 MG In Dextrose 5% 3 / 3 250 ML @ 0.5 MCG/MIN 1.91 mls/ hr IVC CONT ASIM Rx#:[id number] Calcium Gluconate 1,000 MG In 0 110 / 110 110 / 110 .9 % Sodium Chloride 100 ML @ 220 mls/hr IVPB Q6HR PRN Rx#: [id number] Magnesium Sulfate 2 GM In 0.9 % 104 / 104 104 / 104 Sodium Chloride 100 ML @ 52 mls/hr IVPB Q6H PRN Rx#: [id number] Zosyn 3.375 GM In 0.9 % Sodium 100 / 100 100 / 100 Chloride (Mini-Bag +) 100 ML @ 25 mls/hr IVPB Q12H ASIM Rx#: [id number] Potassium Chloride 10 mEq/100mL 400 / 400 10 meq In 100 ml @ 100 mls/hr IVPB Q1H PRN Rx#:[id number] Potassium Phosphate 44 MEQ In 0 260 / 260 .9 % Sodium Chloride 250 ML @ 40 mls/hr IVPB Q10H PRN Rx#: [id number] Oral 1000 / 1000 Blood Product 230 / 230 Platelet Pheresis Lp Irr 2nd 230 / 230 Unit [id number] Output: Catheter 750 / 750 300 / 300 800 / 800 Other: Weight 148.8 kg Blood Glucose* 352 380 345 - General Appearance Exam: General appearance: well-developed, appears started age, obese, chronically ill, fatigue, frail EENT: ATNC, mucous membranes moist Neck: supple Respiratory: course breath sounds Cardiology: edema (trace to 1+ pedal edema b/l), irregular rhythm, normal S1, normal S2 Gastrointestinal: normoactive bowel sounds, no guarding, obese Integumentary: warm and dry Neurologic: no focal deficit, confused, disoriented Musculoskeletal: no cyanosis, no clubbing - Lab 07/12/18 04:00 07/11/18 04:00 Most recent lab results ABG pH 7.35 pH Units (7.32-7.45) 07/07/18 10:42 ABG pCO2 37 mmHg (35-45) 07/07/18 10:42 ABG pO2 70 mmHg (85-104) L 07/07/18 10:42 ABG HCO3 20 mEq/L (21-27) L 07/07/18 10:42 ABG O2 Saturation 93 % (95-98) L 07/07/18 10:42 Calcium 8.2 mg/dL (8.6-10.3) L 07/08/18 05:20 Phosphorus 4.4 mg/dL (2.7-4.5) 07/08/18 05:20 Magnesium 2.5 mg/dL (1.6-2.6) 07/08/18 05:20 Consult Discharge Plan - Plan [facility]errals: [facility] [Primary Care Provider[facility] -
[2018-07-08] MEDS: *HR* OxyCODONE Immed Rel 5 MG TABLET PO PRN ×2 (14:20→21:11)
[2018-07-08] MEDS: Norepinephrine 4 MG in D5% in Water 250 ML IVC SCH (16:21)
--- NOTE | 2018-07-08 16:48 | Urology Progress Note ---
Date of Encounter: 07/08/18 Time of Encounter: 16:46 - Assessment and Plan (1) Obstruction of right ureteropelvic junction (UPJ) due to stone Current Visit: Yes Status: Acute Assessment and plan: Patient's of his stent placement. Stone is still in place. Patient clinically improving. Patient will be scheduled for follow-up in my office in 3-4 weeks to discuss definitive management of right renal stone. Please call with any questions. (2) Renal failure Current Visit: Yes Status: Acute Qualifiers: Renal failure chronicity: acute Acute renal failure type: unspecified Qualified Code(s): N17.9 - Acute kidney failure, unspecified (3) Severe sepsis Current Visit: Yes Status: Acute Progress Note Narrative: Patient seen. Patient awake. Minimal pain. Good urine output. Serum creatinine improving. Objective Initial Vital Signs Temp Pulse Resp BP Pulse Ox 98.5 F 127 31 108/65 87 07/06/18 20:23 07/06/18 20:23 07/06/18 20:23 07/06/18 20:23 07/06/18 20:23 - General physical appearance Present: well developed, well nourished - Abdomen Present: soft. Absent: tender - Integumentary Present: no rash, no abnormal pigmentation - Labs 07/08/18 05:20 07/08/18 05:20 Diabetes panel 07/07/18 07/08/18 Range/Units 12:28 05:20 Sodium 131 L (136-145) mEq/L Potassium 4.2 (3.5-5.1) mEq/L Chloride 101 (98-107) mEq/L Carbon Dioxide 19 L (23-29) mEq/L BUN 77 H (8-23) mg/dL Creatinine 3.07 H (0.70-1.30) mg/dL Glucose 379 H (70-105) mg/dL Hemoglobin A1c 8.9 H ( - 5.6) % Calcium 8.2 L (8.6-10.3) mg/dL AST 23 (13-39) Units/L ALT 26 (7-52) Units/L Alkaline Phosphatase 68 (34-104) Units/L Albumin 2.9 L (3.5-5.7) g/dL Calcium panel 07/08/18 07/08/18 Range/Units 05:20 05:20 Calcium 8.2 L (8.6-10.3) mg/dL Phosphorus 4.4 (2.7-4.5) mg/dL Albumin 2.9 L (3.5-5.7) g/dL Pituitary panel 07/08/18 Range/Units 05:20 Sodium 131 L (136-145) mEq/L Potassium 4.2 (3.5-5.1) mEq/L Chloride 101 (98-107) mEq/L Carbon Dioxide 19 L (23-29) mEq/L BUN 77 H (8-23) mg/dL Creatinine 3.07 H (0.70-1.30) mg/dL Glucose 379 H (70-105) mg/dL Calcium 8.2 L (8.6-10.3) mg/dL Adrenal panel 07/08/18 Range/Units 05:20 Sodium 131 L (136-145) mEq/L Potassium 4.2 (3.5-5.1) mEq/L Chloride 101 (98-107) mEq/L Carbon Dioxide 19 L (23-29) mEq/L BUN 77 H (8-23) mg/dL Creatinine 3.07 H (0.70-1.30) mg/dL Glucose 379 H (70-105) mg/dL Calcium 8.2 L (8.6-10.3) mg/dL Total Bilirubin 1.3 H (0.3-1.0) mg/dL AST 23 (13-39) Units/L ALT 26 (7-52) Units/L Alkaline Phosphatase 68 (34-104) Units/L Albumin 2.9 L (3.5-5.7) g/dL Consult Discharge Plan - Plan [facility]errals: [facility] [Primary Care Provider] -
[2018-07-09] MEDS: Levalbuterol Neb 1.25 MG/3 ML IH SCH ×4 (03:27→22:19)
[2018-07-09] MEDS: Amiodarone Premix 360 MG/200 ML BAG IVC SCH (03:43)
[2018-07-09] MEDS: Insulin LISPRO 300 UNITS/3 ML VIAL SQ SCH ×5 (03:57→21:20)
[2018-07-09] MEDS: *HR* OxyCODONE Immed Rel 5 MG TABLET PO PRN ×3 (04:02→21:10)
[2018-07-09 04:21] LABS: Hemoglobin 10.3 g/dL (12.9-16.9); Mean Platelet Volume 10.7 fL (9.4-12.4)
[2018-07-09 04:21] LABS: VBG Ionized Calcium 1.21 mmol/L (1.15-1.35)
[2018-07-09 04:23] LABS: Hematocrit 32.4 % (37.5-50.1); Lymphocytes # 0.3 K/mcL (0.6-4.6); Mean Corpuscular HGB Conc 31.8 g/dL (31.6-35.5); Mean Corpuscular Hemoglobin 29.3 pg (28.0-33.3); Mean Corpuscular Volume 92.3 fL (83.0-100.0); Red Blood Count 3.51 M/mcL (4.19-5.50); Red Cell Distribution Width 16.2 % (11.5-14.5)
[2018-07-09 04:24] LABS: Platelet Count 38 K/mcL (140-400)
[2018-07-09 04:38] LABS: Magnesium 2.2 mg/dL (1.6-2.6); Phosphorous 3.4 mg/dL (2.7-4.5)
[2018-07-09 04:42] LABS: Albumin 2.7 g/dL (3.5-5.7); Albumin/Globulin Ratio 0.8 (1.1-2.2); Bilirubin,Direct 0.4 mg/dL (0.0-0.2); Bilirubin,Indirect 0.3 mg/dL (0.0-1.2); Bilirubin,Total 0.7 mg/dL (0.3-1.0); Calcium 8.3 mg/dL (8.6-10.3); Globulin 3.3 g/dL (2.4-3.5)
[2018-07-09 04:51] LABS: Monocytes # 0.2 K/mcL (0.0-1.3); Platelet Estimate Decreased (Normal); Reactive Lymphocytes Present (Not Present)
[2018-07-09] MEDS ORDERED: D5% in Water 1,000 ML IVC PRN ×2 (06:40→13:26)
[2018-07-09] MEDS ORDERED: *HR* OxyCODONE Immed Rel 5 MG TABLET PO PRN (07:42)
--- NOTE | 2018-07-09 08:34 | Pulmonology Progress Note ---
<Jatinder Vásquez W - Last Filed: 07/09/18 11:10> Date of Encounter: 07/09/18 Time of Encounter: 08:31 Assessment and Plan (1) Septic shock Current Visit: Yes Status: Acute Patient was initially tachycardic, hypotensive, tachypnic, with an elevated lactic acid. Patient remains hypotensive from his baseline but no longer requires pressors and has been off for over 24 hours source of infection was kidney stone. patient is post op day 2 of stone removal with ureteral stent placement Blood cultures grew gram negative rods. IV zosyn day 3 Discontinue Sensitivities back begin Rocephin 2 g Q24 hours Lactic acid has normalized (2) Atrial fibrillation with RVR Current Visit: Yes Status: Acute Etiology likely secondary to sepsis Cardiology consulted appreciate recs Per cardiology continue amiodarone for short term recommends beta florian when patient's BP can tolerate begin on home Cardizem for rate contol consider adding beta florian if it is required and pressure could tolerate Currently not on anticoagulation due thrombocytopenia (3) Acute kidney injury Current Visit: Yes Status: Acute Likely from obstructive uropathy Post op day 2 from stone removal and ureteral stent placement Nephrology onboard appreciate recs Per nephro avoid nephrotoxins and continue strict I&O's and daily weights urine output has increased creatinine downtrending 2.25 today Patient cumulative + 8L of fluid balance restarting home spironalactone at this time holding home lasix with resolving NEELAM and urine output has been good (4) COPD (chronic obstructive pulmonary disease) Current Visit: Yes Status: Chronic chronic O2 saturation 95% 3L nasal cannula levalbuterol q6HR Qualifiers: COPD type: emphysema Emphysema type: unspecified Qualified Code(s): J43.9 - Emphysema, unspecified (5) Hypotension Current Visit: Yes Status: Acute Likely from septic shock no longer requiring pressors continue to monitor Qualifiers: Hypotension type: unspecified hypotension type Qualified Code(s): I95.9 - Hypotension, unspecified (6) Bacteremia Current Visit: Yes Status: Acute Gram negative milagros on blood culture likely from obstructive uropathy sensitivities recieved zosyn day 3 discontinue and switch to Rocephin (7) Elevated troponin Status: Acute Demand ischemia in the setting of sepsis troponin 0.05 which is unchanged from previous denies chest pain no longer trending (8) Obstruction of right ureteropelvic junction (UPJ) due to stone Current Visit: Yes Status: Acute resolved post op day 2 from cystoscopy with stone removal and ureteral stent plascement improving voids strict I&Os (9) Type II diabetes mellitus Current Visit: Yes Status: Chronic History of Diabetes continue to monitor Diet started High dose SSI increased basal insulin as BG still elevated Qualifiers: Diabetes mellitus detention insulin use: unspecified rn long term care insulin use status Diabetes mellitus complication status: with unspecified complications Qualified Code(s): E11.8 - Type 2 diabetes mellitus with unspecified complications (10) Cirrhosis Current Visit: Yes Status: Chronic Chronic History of hepatitis C which patient states has resolved ABD US ordered Qualifiers: Hepatic cirrhosis type: unspecified hepatic cirrhosis Ascites presence: with ascites Qualified Code(s): K74.60 - Unspecified cirrhosis of liver; R18.8 - Other ascites (11) Thrombocytopenia Current Visit: No Status: Chronic platelets 36 Most likey due to cirrhosis and/or sepsis DC heparin as DVT prophylaxis start EPCDs (12) Lactic acidosis Current Visit: Yes Status: Acute resolved (13) DVT prophylaxis Current Visit: No Status: Acute EPCDs patient refusing Subjective Principal diagnosis: septic shock Interval history: Today patient has shown clinical improvement. he is no longer encephalopathic and is A&Ox3. Patient no longer requiring levophed. Patient has been followed by cardiology and by nephrology. Diet and fluids are started this AM. IV zosyn day 3. sensitivities are back swithed to rocephen. obstructive uropathy has been resolved but we are continuing to monitor I and O's. creatinine is slightly decreasing at 3.07 today. Patient stoping amiodarone to take his regular cardizem. patietn refusing BIPAP and EPCDs. Objective PUL Vital signs: Last Vital Signs Temp 98.0 F 07/09/18 07:00 Pulse 72 07/09/18 06:00 Resp 22 07/09/18 06:00 BP 90/58 07/09/18 06:00 Pulse Ox 95 07/09/18 06:00 General appearance: no acute distress Eyes: nonicteric Auscultation: bilateral: wheezes Gastrointestinal: normoactive bowel sounds Integumentary: normal Extremities: no cyanosis, edema (1+) mood appropriate, affect normal Results - Laboratory Findings CBC and BMP: 07/09/18 04:05 07/09/18 04:05 ABG ABG pH 7.35 pH Units (7.32-7.45) 07/07/18 10:42 ABG pCO2 37 mmHg (35-45) 07/07/18 10:42 ABG pO2 70 mmHg (85-104) L 07/07/18 10:42 ABG O2 Saturation 93 % (95-98) L 07/07/18 10:42 PT/INR, D-dimer PT 20.0 Seconds (9.4-12.1) H 07/07/18 12:28 D-Dimer 2078 ng/mLFEU (0-500) H 07/07/18 13:31 Abnormal lab findings: Abnormal lab results RBC 3.51 M/mcL (4.19-5.50) L 07/09/18 04:05 Hgb 10.3 g/dL (12.9-16.9) L 07/09/18 04:05 Hct 32.4 % (37.5-50.1) L 07/09/18 04:05 RDW 16.2 % (11.5-14.5) H 07/09/18 04:05 Plt Count 38 K/mcL (140-400) L 07/09/18 04:05 Lymphocytes # 0.3 K/mcL (0.6-4.6) L 07/09/18 04:05 Nucleated RBCs/100 WBC 0.3 /100 WBC (0) H 07/07/18 12:28 Reactive Lymphocytes Present (Not Present) A 07/09/18 04:05 Dohle Bodies Present (Not Present) A 07/06/18 20:38 Platelet Estimate Decreased (Normal) L 07/09/18 04:05 Immature Plt Fraction 10.0 % (1.1-6.1) H 07/09/18 04:05 PT 20.0 Seconds (9.4-12.1) H 07/07/18 12:28 Fibrinogen 579 mg/dL (169-393) H 07/07/18 13:31 D-Dimer 2078 ng/mLFEU (0-500) H 07/07/18 13:31 ABG pO2 70 mmHg (85-104) L 07/07/18 10:42 ABG HCO3 20 mEq/L (21-27) L 07/07/18 10:42 ABG O2 Saturation 93 % (95-98) L 07/07/18 10:42 ABG Base Excess -5 mEq/L (-2 to 3) L 07/07/18 10:42 Sodium 134 mEq/L (136-145) L 07/09/18 04:05 Carbon Dioxide 20 mEq/L (23-29) L 07/09/18 04:05 BUN 72 mg/dL (8-23) H 07/09/18 04:05 Creatinine 2.25 mg/dL (0.70-1.30) H 07/09/18 04:05 Est GFR ( Amer) 35 (> 60) L 07/09/18 04:05 Est GFR (Non-Af Amer) 29 (> 60) L 07/09/18 04:05 BUN/Creatinine Ratio 32 (6-26) H 07/09/18 04:05 Glucose 229 mg/dL (70-105) H 07/09/18 04:05 POC Glucose 251 mg/dL (70-99) H 07/09/18 03:56 Hemoglobin A1c 8.9 % (-5.6) H 07/07/18 12:28 Calculated Osmolality 306 (280-300) H 07/09/18 04:05 Calcium 8.3 mg/dL (8.6-10.3) L 07/09/18 04:05 Direct Bilirubin 0.4 mg/dL (0.0-0.2) H 07/09/18 04:05 Troponin I 0.05 ng/mL (< 0.04) H* 07/07/18 05:57 Serum Total Protein 6.0 g/dL (6.4-8.9) L 07/09/18 04:05 Albumin 2.7 g/dL (3.5-5.7) L 07/09/18 04:05 Albumin/Globulin Ratio 0.8 (1.1-2.2) L 07/09/18 04:05 Lipase 10 Units/L (11-82) L 07/06/18 20:38 Urine Clarity Cloudy (Clear) A 07/07/18 03:45 Urine Protein 30 mg/dL (Neg-Trace) H 07/07/18 03:45 Urine Ketones Trace mg/dL (Negative) H 07/07/18 03:45 Urine Blood Moderate (Negative) H 07/07/18 03:45 Urine Bilirubin Small (Negative) H 07/07/18 03:45 Urine Urobilinogen 2.0 mg/dL (Normal) H 07/07/18 03:45 Ur Leukocyte Esterase Large (Negative) H 07/07/18 03:45 Urine Microscopic RBC 3-5 per hpf (0-3) H 07/07/18 03:45 Urine Microscopic WBC TNTC per hpf (0-3) H 07/07/18 03:45 Ur Squamous Epith Cells Moderate per lpf (None-Few) H 07/07/18 03:45 Urine Bacteria Many per hpf (None-Few) H 07/07/18 03:45 Ur Culture Indicated? YES (NO) A 07/07/18 03:45 Enterobacteriac sp PCR DETECTED (Not Detect) A 07/06/18 21:10 E. coli (PCR) DETECTED (Not Detect) A 07/06/18 21:10 - Microbiology Findings Microbiology Findings: Microbiology, Last 48 Hours 07/06/18 21:10 Blood Culture - Final Peripheral Venipuncture Escherichia coli 07/06/18 21:10 Blood Culture - Final Peripheral Venipuncture Escherichia coli 07/07/18 03:45 Urine Culture - Final Urine,Clean Catch No growth. - Clinical Findings Intake & Output: Intake & Output 07/08/18 07/09/18 07/09/18 23:59 07:59 15:59 Intake Total 1200 / 1200 1920 / 1920 Output Total 1200 / 1200 1900 / 1900 Balance 0 / 0 20 / 20 Weight 123.6 kg Consult Discharge Plan - Plan [facility]errals: [facility] [Primary Care Provider[facility] - <Alyssa Farah - Last Filed: 07/09/18 12:09> Objective PUL Vital signs: Last Vital Signs Temp 97.6 F 07/09/18 11:00 Pulse 84 07/09/18 11:45 Resp 20 07/09/18 11:00 BP 127/81 07/09/18 11:00 Pulse Ox 91 07/09/18 11:00 Results - Laboratory Findings CBC and BMP: 07/09/18 04:05 07/09/18 04:05 ABG ABG pH 7.35 pH Units (7.32-7.45) 07/07/18 10:42 ABG pCO2 37 mmHg (35-45) 07/07/18 10:42 ABG pO2 70 mmHg (85-104) L 07/07/18 10:42 ABG O2 Saturation 93 % (95-98) L 07/07/18 10:42 PT/INR, D-dimer PT 20.0 Seconds (9.4-12.1) H 07/07/18 12:28 D-Dimer 2078 ng/mLFEU (0-500) H 07/07/18 13:31 Abnormal lab findings: Abnormal lab results RBC 3.51 M/mcL (4.19-5.50) L 07/09/18 04:05 Hgb 10.3 g/dL (12.9-16.9) L 07/09/18 04:05 Hct 32.4 % (37.5-50.1) L 07/09/18 04:05 RDW 16.2 % (11.5-14.5) H 07/09/18 04:05 Plt Count 38 K/mcL (140-400) L 07/09/18 04:05 Lymphocytes # 0.3 K/mcL (0.6-4.6) L 07/09/18 04:05 Nucleated RBCs/100 WBC 0.3 /100 WBC (0) H 07/07/18 12:28 Reactive Lymphocytes Present (Not Present) A 07/09/18 04:05 Dohle Bodies Present (Not Present) A 07/06/18 20:38 Platelet Estimate Decreased (Normal) L 07/09/18 04:05 Immature Plt Fraction 10.0 % (1.1-6.1) H 07/09/18 04:05 PT 20.0 Seconds (9.4-12.1) H 07/07/18 12:28 Fibrinogen 579 mg/dL (169-393) H 07/07/18 13:31 D-Dimer 2078 ng/mLFEU (0-500) H 07/07/18 13:31 ABG pO2 70 mmHg (85-104) L 07/07/18 10:42 ABG HCO3 20 mEq/L (21-27) L 07/07/18 10:42 ABG O2 Saturation 93 % (95-98) L 07/07/18 10:42 ABG Base Excess -5 mEq/L (-2 to 3) L 07/07/18 10:42 Sodium 134 mEq/L (136-145) L 07/09/18 04:05 Carbon Dioxide 20 mEq/L (23-29) L 07/09/18 04:05 BUN 72 mg/dL (8-23) H 07/09/18 04:05 Creatinine 2.25 mg/dL (0.70-1.30) H 07/09/18 04:05 Est GFR ( Amer) 35 (> 60) L 07/09/18 04:05 Est GFR (Non-Af Amer) 29 (> 60) L 07/09/18 04:05 BUN/Creatinine Ratio 32 (6-26) H 07/09/18 04:05 Glucose 229 mg/dL (70-105) H 07/09/18 04:05 POC Glucose 251 mg/dL (70-99) H 07/09/18 03:56 Hemoglobin A1c 8.9 % (-5.6) H 07/07/18 12:28 Calculated Osmolality 306 (280-300) H 07/09/18 04:05 Calcium 8.3 mg/dL (8.6-10.3) L 07/09/18 04:05 Direct Bilirubin 0.4 mg/dL (0.0-0.2) H 07/09/18 04:05 Troponin I 0.05 ng/mL (< 0.04) H* 07/07/18 05:57 Serum Total Protein 6.0 g/dL (6.4-8.9) L 07/09/18 04:05 Albumin 2.7 g/dL (3.5-5.7) L 07/09/18 04:05 Albumin/Globulin Ratio 0.8 (1.1-2.2) L 07/09/18 04:05 Lipase 10 Units/L (11-82) L 07/06/18 20:38 Urine Clarity Cloudy (Clear) A 07/07/18 03:45 Urine Protein 30 mg/dL (Neg-Trace) H 07/07/18 03:45 Urine Ketones Trace mg/dL (Negative) H 07/07/18 03:45 Urine Blood Moderate (Negative) H 07/07/18 03:45 Urine Bilirubin Small (Negative) H 07/07/18 03:45 Urine Urobilinogen 2.0 mg/dL (Normal) H 07/07/18 03:45 Ur Leukocyte Esterase Large (Negative) H 07/07/18 03:45 Urine Microscopic RBC 3-5 per hpf (0-3) H 07/07/18 03:45 Urine Microscopic WBC TNTC per hpf (0-3) H 07/07/18 03:45 Ur Squamous Epith Cells Moderate per lpf (None-Few) H 07/07/18 03:45 Urine Bacteria Many per hpf (None-Few) H 07/07/18 03:45 Ur Culture Indicated? YES (NO) A 07/07/18 03:45 Enterobacteriac sp PCR DETECTED (Not Detect) A 07/06/18 21:10 E. coli (PCR) DETECTED (Not Detect) A 07/06/18 21:10 - Microbiology Findings Microbiology Findings: Microbiology, Last 48 Hours 07/06/18 21:10 Blood Culture - Final Peripheral Venipuncture Escherichia coli 07/06/18 21:10 Blood Culture - Final Peripheral Venipuncture Escherichia coli 07/07/18 03:45 Urine Culture - Final Urine,Clean Catch No growth. - Clinical Findings Intake & Output: Intake & Output 07/08/18 07/09/18 07/09/18 23:59 07:59 15:59 Intake Total 1200 / 1200 2171 / 2171 350 / 350 Output Total 1200 / 1200 1900 / 1900 700 / 700 Balance 0 / 0 271 / 271 -350 / -350 Weight 123.6 kg - Attending Attestation - Attending Attestation I saw and evaluated this patient and my medical decision-making was reviewed with the Resident Physician. I agree with the documented findings, disposition and treatment plan as described except to the extent set forth below. We independently had [id number] contact with the patient Patient seen and examined at bedside Labs, radiology, chart personally reviewed. Management was reviewed during multidisciplinary critical care rounds. PRODUCT SPECIALIST: Patient is conscious oriented 3 more alert than yesterday recovering septic encephalopathy. Pulm: Patient has acceptable oxygenation and ventilation patient is on nasal cannula BiPAP at night.Patient refused using it today . Will need BIPAP when napping . Cards: Patient has diastolic heart failure with moderate pulmonary hypertension repeat echo showed combined systolic and diastolic heart failure and this most likely due to to group 2 pulmonary hypertension secondary to cardiac cause patient also but have sleep disorder breathing which is untreated. Atrial fibrillation with RVR controlled with amiodarone drip was slowly transitioned to by mouth beta blockers and will stop amiodarone drip. 07/09 Will transition to beta blockers diuresis may be tomorrow to demonstrate hemodynamic stability FEN-GI: Advance diet as tolerated Renal: Labs and output reviewed acute kidney injury most likely secondary to hydronephrosis due to ureteral stone patient in the function is recovering no acute no indication for dialysis. Patient kidney function is improving ID: complicated UTI with E coli sensitive changing to cefriaxone will need atleast 10-14 days of antibiotics Heme/Onc: Chemical thrombo-prophylaxis. Endo: Glucose Monitored Integ/MSK: Skin Care per routine ICU Nursing Protocol to prevent ulcers. Lines: All lines examined without evidence of infection : Dispo: Patient can be transferred to 2 floor medical telemetry .
--- NOTE | 2018-07-09 08:45 | Nephrology Progress Note ---
Date of Encounter: 07/09/18 Time of Encounter: 10:00 - Assessment and Plan (1) Acute kidney injury Status: Acute Renal function improving s/p urteral stent and thus I do not recommend starting CHECKER DUMP GROUNDS today. Continue to follow a renal supportive strategy. Thank you. Follow strict I/Os and daily weights. Sometimes after a postrenal obstruction is correcting, a patient could develop polyuria: monitor PNa and serum K+. (2) Obstructive uropathy Status: Acute See above. Appreciate Urology. (3) Cirrhosis Status: Chronic Chronic. Hx of HCV according to his chart. Qualifiers: Hepatic cirrhosis type: unspecified hepatic cirrhosis Ascites presence: with ascites Qualified Code(s): K74.60 - Unspecified cirrhosis of liver; R18.8 - Other ascites (4) Thrombocytopenia Status: Chronic Suspect his splenic sequestration from his cirrhosis and/or his sepsis is contributing. Subjective Principal diagnosis: septic shock Interval history: Pt was s/e and he reported no new major complaints. He did not affirm N/V or D. Objective - Vital Signs Vital signs: Vital Signs Temp Pulse Resp BP Pulse Ox 07/09/18 07:00 98.0 F 07/09/18 06:00 72 22 90/58 95 07/09/18 05:00 82 26 94/56 95 07/09/18 04:00 97.7 F 77 26 106/65 96 07/09/18 03:30 16 94 07/09/18 03:00 81 24 116/83 95 07/09/18 02:00 75 20 113/76 95 07/09/18 01:00 78 20 115/78 95 07/09/18 00:00 98.0 F 84 22 114/75 96 07/08/18 23:00 88 20 114/77 97 07/08/18 22:36 18 94 07/08/18 22:00 77 22 116/71 96 07/08/18 21:00 75 24 116/83 95 07/08/18 20:00 86 22 121/73 94 07/08/18 19:00 97.6 F 81 20 112/80 95 07/08/18 18:00 79 16 106/76 98 07/08/18 17:00 89 18 103/60 93 07/08/18 16:08 18 92 07/08/18 16:00 98.6 F 79 18 100/86 92 07/08/18 15:00 84 18 108/81 91 07/08/18 14:00 82 18 104/73 95 07/08/18 13:00 77 18 101/71 96 07/08/18 12:00 97.9 F 93 18 113/85 96 07/08/18 11:00 97.9 F 82 18 98/67 96 07/08/18 10:00 86 18 102/72 95 07/08/18 09:30 16 96 07/08/18 09:18 80 07/08/18 09:00 85 18 107/73 95 Intake and Output 07/08/18 07/09/18 07/09/18 23:59 07:59 15:59 Intake Total 1200 / 1200 1920 / 1920 Output Total 1200 / 1200 1900 / 1900 Balance 0 / 0 20 / 20 Intake: IV Fluids 1200 / 1200 1300 / 1300 0.9 % Sodium Chloride 1,000 ML 1000 / 1000 1000 / 1000 @ 100 mls/hr IVC .Q10H ASIM Rx#: [id number] Amiodarone Drip Premix 360mg/ 200 / 200 200 / 200 200mL 360 mg In 200 ml @ 0.5 MG /MIN 16.667 mls/hr IVC CONT ASIM Rx#:[id number] Zosyn 3.375 GM In 0.9 % Sodium 100 / 100 Chloride (Mini-Bag +) 100 ML @ 25 mls/hr IVPB Q12H ASIM Rx#: [id number] Oral 620 / 620 Output: Catheter 1200 / 1200 1900 / 1900 Other: Meal Breakfast Percent of Meal Consumed 25% Weight 123.6 kg Blood Glucose* 360 160 Patient Weight 07/09/18 23:59 Weight 123.6 kg - General Appearance Exam: General appearance: well-developed, appears started age, obese, fatigue, frail EENT: ATNC, mucous membranes moist Neck: supple Respiratory: course breath sounds Cardiology: edema (trace to 1+ pedal edema b/l), irregular rhythm, normal S1, normal S2 Gastrointestinal: normoactive bowel sounds, no guarding, obese Integumentary: warm and dry Neurologic: no focal deficit, confused, disoriented Musculoskeletal: no cyanosis, no clubbing - Lab 07/12/18 04:00 07/11/18 04:00 Most recent lab results ABG pH 7.35 pH Units (7.32-7.45) 07/07/18 10:42 ABG pCO2 37 mmHg (35-45) 07/07/18 10:42 ABG pO2 70 mmHg (85-104) L 07/07/18 10:42 ABG HCO3 20 mEq/L (21-27) L 07/07/18 10:42 ABG O2 Saturation 93 % (95-98) L 07/07/18 10:42 Calcium 8.3 mg/dL (8.6-10.3) L 07/09/18 04:05 Phosphorus 3.4 mg/dL (2.7-4.5) 07/09/18 04:05 Magnesium 2.2 mg/dL (1.6-2.6) 07/09/18 04:05 Consult Discharge Plan - Plan [facility]errals: [facility] [Primary Care Provider] -
[2018-07-09] MEDS ORDERED: cefTRIAXone 2,000 MG in Water for inj. (sterile) 20 ML 20 ML IVP SCH (09:00)
[2018-07-09] MEDS ORDERED: Sennosides/Docusate Sodium TABLET PO SCH (09:00)
[2018-07-09] MEDS ORDERED: Piperacillin/Tazobactam 3.375 GM in 0.9 % Sodium Chloride Mini Bag 100 ML IVPB SCH (09:00)
[2018-07-09] MEDS: Insulin DETEMIR 100 UNIT/ML X5UNITS SQ SCH ×2 (09:02→09:29)
[2018-07-09] MEDS: Pantoprazole 40 MG VIAL IVP SCH (09:02)
[2018-07-09 09:26] LABS: Adenovirus Not Detected (Not Detect); Bordetella Pertussis Not Detected (Not Detect); Chlamydophila pneumoniae Not Detected (Not Detect); Coronavirus 229E Not Detected (Not Detect); Coronavirus HKU1 Not Detected (Not Detect); Coronavirus NL63 Not Detected (Not Detect); Coronavirus OC43 Not Detected (Not Detect); Human Metapneumovirus Not Detected (Not Detect); Human Rhinovirus/Enterovirus Not Detected (Not Detect); Influenza A Subtype 2009 H1 Not Detected (Not Detect); Influenza A Untypeable Not Detected (Not Detect); Influenza B Not Detected (Not Detect); Mycoplasma pneumoniae Not Detected (Not Detect); Parainfluenza Virus 1 Not Detected (Not Detect); Parainfluenza Virus 2 Not Detected (Not Detect); Parainfluenza Virus 3 Not Detected (Not Detect); Parainfluenza Virus 4 Not Detected (Not Detect); Respiratory Syncytial Virus Not Detected (Not Detect)
[2018-07-09] MEDS: Diltiazem CD (24hr) 180 MG CAPSULE PO SCH ×2 (10:21→10:32)
[2018-07-09] MEDS ORDERED: Acetaminophen 325 MG TABLET PO PRN (13:26)
[2018-07-09] MEDS ORDERED: Dextrose Gel 15 GM/37.5 ML TUBE PO PRN ×2 (13:26)
[2018-07-09] MEDS ORDERED: Naloxone 0.4 MG/ML INJ IVP PRN (13:26)
[2018-07-09] MEDS ORDERED: *HR* Dextrose 50 % in Water (Syg) 50 ML SYRINGE IVP PRN (13:26)
[2018-07-09] MEDS ORDERED: Ondansetron 4 MG/2 ML VIAL IVP PRN (13:26)
[2018-07-09] MEDS ORDERED: Mag Hydrox/Al Hydrox/Simeth 30 ML UDC PO PRN (14:29)
[2018-07-09] MEDS: Simethicone 80 MG TAB.CHEW PO PRN (14:41)
[2018-07-09] MEDS ORDERED: Insulin LISPRO 300 UNITS/3 ML VIAL SQ SCH (21:00)
[2018-07-09] MEDS: Sennosides/Docusate Sodium TABLET PO SCH (21:19)
[2018-07-10] MEDS: Levalbuterol Neb 1.25 MG/3 ML IH SCH ×4 (03:11→21:47)
[2018-07-10] MEDS: *HR* OxyCODONE Immed Rel 5 MG TABLET PO PRN ×3 (03:33→17:42)
[2018-07-10 06:13] LABS: Basophils % 0.1 %; Eosinophils % 0.1 %; Hematocrit 35.7 % (37.5-50.1); Hemoglobin 11.4 g/dL (12.9-16.9); Immature Granulocytes % 0.9 % (0-4); Immature Platelets 11.4 % (1.1-6.1); Lymphocytes # 0.5 K/mcL (0.6-4.6); Lymphocytes % 5.1 %; Mean Corpuscular HGB Conc 31.9 g/dL (31.6-35.5); Mean Corpuscular Hemoglobin 29.5 pg (28.0-33.3); Mean Corpuscular Volume 92.2 fL (83.0-100.0); Mean Platelet Volume 12.3 fL (9.4-12.4); Monocytes # 0.4 K/mcL (0.0-1.3); Monocytes % 3.6 %; Neutrophils # 9.4 K/mcL (1.6-8.9); Nucleated Red Blood Cells 0.2 /100 WBC (0); Red Blood Count 3.87 M/mcL (4.19-5.50); Red Cell Distribution Width 17.1 % (11.5-14.5); Segmented Neutrophils % 90.2 %
[2018-07-10 06:20] LABS: Platelet Count 52 K/mcL (140-400)
[2018-07-10 06:31] LABS: Albumin 2.9 g/dL (3.5-5.7); Albumin/Globulin Ratio 0.8 (1.1-2.2); Bilirubin,Direct 5.3 mg/dL (0.0-0.2); Bilirubin,Indirect 0.8 mg/dL (0.0-1.2); Bilirubin,Total 6.1 mg/dL (0.3-1.0); Globulin 3.7 g/dL (2.4-3.5); Potassium 4.6 mEq/L (3.5-5.1); Total Protein 6.6 g/dL (6.4-8.9)
[2018-07-10 06:58] LABS: Platelet Estimate Decreased (Normal); Reactive Lymphocytes Present (Not Present)
[2018-07-10 07:16] LABS: Magnesium 2.2 mg/dL (1.6-2.6); Phosphorous 2.4 mg/dL (2.7-4.5)
--- NOTE | 2018-07-10 07:38 | Internal Med Progress Note ---
Hospitalist Progress Note - Encounter Date of Encounter: 07/10/18 Time of Encounter: 11:00 - Subjective Interval History: Patient has been transferred from the ICU to medical floor after management for septic shock due to bacteremia (Escherichia coli) status post stone extraction due to obstruction. Patient lying in the bed and appears deconditioned this morning; physical therapy consulted with recommendations for placement - Exam Vitals: Temp Pulse Resp BP Pulse Ox 97.6 F 82 16 111/79 90 07/10/18 04:28 07/10/18 04:28 07/10/18 04:28 07/10/18 04:28 07/10/18 04:28 Exam: Gen.: Nonacute distress, alert and oriented 3 ENT: Mucosal membranes moist Respiratory: Lungs are clear to auscultation bilaterally without any wheezing rhonchi or rales Cardiovascular: Normal S1 and S2 regular rate rhythm no murmurs rubs or gallops Abdomen: Soft, nontender and nondistended with positive bowel sounds Extremities: No lower extremity edema Skin: Normal color - Assessment and Plan (1) Bacteremia Current Visit: Yes Status: Acute Assessment and Plan: Cultures positive for Escherichia coli on 07/06/18; repeat blood cultures pending Etiology unknown as urine cultures negative but patient did have obstructive stone that was removed by urology Continue day 2 of IV ceftriaxone for a total of 5 days of IV antibiotics (was on IV Zosyn). (2) Septic shock Current Visit: Yes Status: Acute Assessment and Plan: Resolved; secondary to Escherichia coli bacteremia Continue management as above (3) Acute cystitis with hematuria Current Visit: Yes Status: Ruled-out Assessment and Plan: Urine cultures negative therefore UTI ruled out (4) Atrial flutter with rapid ventricular response Current Visit: No Status: Acute Assessment and Plan: Rate controlled on Cardizem [id number] score 3 (age, HTN, CHF) Will consider restarting patient's Eliquis (5) Renal failure Current Visit: Yes Status: Acute Assessment and Plan: Patient's renal function continues to improve as was 4.23 on admission and today is 1.87; GFR was 14 on admission and today is 36 Nephrology following with recommendations for continue renal protective strategies without any need for INJECTION MOLD TOOLING TECHNICIAN at this time Continue to monitor (6) Elevated transaminase level Current Visit: Yes Status: Acute Assessment and Plan: Patient with elevated transaminases this morning Will continue to monitor (7) Acute respiratory failure with hypoxemia Current Visit: Yes Status: Acute Assessment and Plan: Patient continues to require supplemental oxygenation at 2 L nasal cannula Will wean supplemental oxygenation as tolerates (8) COPD with exacerbation Current Visit: Yes Status: Acute Assessment and Plan: Resolved; continue scheduled Xopenex (9) Pulmonary hypertension Current Visit: Yes Status: Acute Assessment and Plan: Moderate to severe pulmononary HTN (10) Type II diabetes mellitus Current Visit: Yes Status: Chronic Assessment and Plan: SSI for now. Will monitor glucose. (11) Hypertension Current Visit: No Status: Chronic Assessment and Plan: Patient was on lopressor at home but was held due to hypotension Blood pressures controlled on Cardizem and spironolactone (12) Morbid obesity Current Visit: Yes Status: Acute Assessment and Plan: Life style modification such as diet and exercise. (13) Anemia Current Visit: No Status: Chronic Assessment and Plan: Stable; continue to monitor DVT Prophylaxis: Subcutaneous heparin - Time Spent with Patient Total time spent is greater than 50% in coordination of care (as documented) at patient's floor/unit and/or counseling patient: Internal Medicine: Result - Labs CBC & Chem 7: 07/10/18 05:45 07/10/18 05:45 Labs: Short CBC 07/10/18 Range/Units 05:45 WBC 10.4 D (4.3-11.1) K/mcL Hgb 11.4 L (12.9-16.9) g/dL Hct 35.7 L (37.5-50.1) % Plt Count 52 L (140-400) K/mcL Neutrophils # 9.4 H (1.6-8.9) K/mcL BMP 07/10/18 05:45 Sodium 135 L Potassium 4.6 Chloride 105 Carbon Dioxide 22 L BUN 59 H Creatinine 1.87 H Glucose 167 H Calcium 9.0 Liver Function 07/10/18 Range/Units 05:45 Total Bilirubin 6.1 H (0.3-1.0) mg/dL Direct Bilirubin 5.3 H (0.0-0.2) mg/dL AST 215 H (13-39) Units/L ALT 136 H (7-52) Units/L Alkaline Phosphatase 192 H (34-104) Units/L Albumin 2.9 L (3.5-5.7) g/dL - ABG Interpretation ABG results: ABG ABG pH 7.35 pH Units (7.32-7.45) 07/07/18 10:42 ABG pCO2 37 mmHg (35-45) 07/07/18 10:42 ABG pO2 70 mmHg (85-104) L 07/07/18 10:42 ABG O2 Saturation 93 % (95-98) L 07/07/18 10:42 PT/INR, D-dimer PT 20.0 Seconds (9.4-12.1) H 07/07/18 12:28 D-Dimer 2078 ng/mLFEU (0-500) H 07/07/18 13:31 - Impressions Impressions Abdomen Ultrasound 07/09/18 00:00 IMPRESSION: No ascites. D/ / Jose Casas MD / Jose Casas MD Interpreting Provider: Jose Casas MD Consult Discharge Plan - Plan [facility]errals: [facility] [Primary Care Provider] - (5) Renal failure Qualifiers: Renal failure chronicity: acute Acute renal failure type: unspecified Qualified Code(s): N17.9 - Acute kidney failure, unspecified (10) Type II diabetes mellitus Qualifiers: Diabetes mellitus fci insulin use: unspecified terminologist insulin use status Diabetes mellitus complication status: with unspecified complications Qualified Code(s): E11.8 - Type 2 diabetes mellitus with unspecified complications (11) Hypertension Qualifiers: Hypertension type: essential hypertension Qualified Code(s): I10 - Essential (primary) hypertension (13) Anemia Qualifiers: Anemia type: iron deficiency Iron deficiency anemia type: unspecified iron deficiency Qualified Code(s): D50.9 - Iron deficiency anemia, unspecified
[2018-07-10] MEDS: Insulin LISPRO 300 UNITS/3 ML VIAL SQ SCH ×4 (09:00→22:09)
[2018-07-10] MEDS: Spironolactone 25 MG TABLET PO SCH (09:01)
[2018-07-10] MEDS: Diltiazem CD (24hr) 180 MG CAPSULE PO SCH (09:01)
[2018-07-10] MEDS: Insulin DETEMIR 100 UNIT/ML X5UNITS SQ SCH (09:01)
[2018-07-10] MEDS: Sennosides/Docusate Sodium TABLET PO SCH ×2 (09:01→22:11)
[2018-07-10] MEDS: cefTRIAXone 2,000 MG in Water for inj. (sterile) 20 ML 20 ML IVP SCH (09:02)
--- NOTE | 2018-07-10 10:48 | Nephrology Progress Note ---
Addendum entered and electronically signed by Terrell Marcum DO 07/14/18 10:12: I have personally performed a face to face evaluation on this patient. I have reviewed and agree with the care plan. History and Exam by me shows: Post-renal NEELAM slowly improving. Original Note: Date of Encounter: 07/10/18 Time of Encounter: 09:04 - Assessment and Plan (1) Acute kidney injury Current Visit: Yes Status: Acute Scr and GFR continue to improve. No need for CHICKEN FANCIER. Continue to follow renal protective strategy. Avoid nephrotoxins and renal dose. (2) Cirrhosis Current Visit: Yes Status: Chronic Chronic. Hx of HCV according to his chart. Qualifiers: Hepatic cirrhosis type: unspecified hepatic cirrhosis Ascites presence: with ascites Qualified Code(s): K74.60 - Unspecified cirrhosis of liver; R18.8 - Other ascites (3) Thrombocytopenia Current Visit: No Status: Chronic Suspect his splenic sequestration from his cirrhosis and/or his sepsis is contributing. (4) Obstructive uropathy Current Visit: Yes Status: Acute See above. Appreciate Urology. Subjective Principal diagnosis: septic shock Interval history: Pt seen and examined. Denies CP/SOB. Denies nausea/vomiting/diarrhea Objective - Vital Signs Vital signs: Vital Signs Temp Pulse Resp BP Pulse Ox 07/10/18 07:36 97.8 F 97 17 112/72 95 07/10/18 04:28 97.6 F 82 16 111/79 90 07/09/18 23:31 98.7 F 89 16 128/71 93 07/09/18 18:45 98.1 F 89 18 132/82 97 07/09/18 16:00 83 16 127/90 91 07/09/18 15:14 18 85/74 94 07/09/18 13:00 81 19 85/74 94 07/09/18 12:00 79 18 91/57 95 07/09/18 11:45 84 07/09/18 11:00 97.6 F 84 20 127/81 91 07/09/18 10:00 89 20 118/80 93 07/09/18 09:40 18 116/71 93 Intake and Output 07/09/18 07/10/18 07/10/18 23:59 07:59 15:59 Output Total 1949 Balance -1949 Output: Catheter 1949 Urethral (Drew) 1400 / 1400 Other: Weight 124.6 kg Blood Glucose* 135 153 - General Appearance General appearance: Present: well-developed, well-nourished, obese EENT: Present: ATNC, hearing intact, vision intact Neck: Present: supple Respiratory: Present: clear Cardiology: Present: no edema, normal S1, normal S2 Gastrointestinal: Present: normoactive bowel sounds, no tenderness, no guarding Integumentary: Present: no rash, warm and dry Neurologic: Present: alert and oriented x3 Psychiatric: Present: mood/affect appropriate, cooperative - Lab 07/10/18 05:45 07/10/18 05:45 Most recent lab results ABG pH 7.35 pH Units (7.32-7.45) 07/07/18 10:42 ABG pCO2 37 mmHg (35-45) 07/07/18 10:42 ABG pO2 70 mmHg (85-104) L 07/07/18 10:42 ABG HCO3 20 mEq/L (21-27) L 07/07/18 10:42 ABG O2 Saturation 93 % (95-98) L 07/07/18 10:42 Calcium 9.0 mg/dL (8.6-10.3) 07/10/18 05:45 Phosphorus 2.4 mg/dL (2.7-4.5) L 07/10/18 05:45 Magnesium 2.2 mg/dL (1.6-2.6) 07/10/18 05:45 Consult Discharge Plan - Plan [facility]errals: [facility] [Primary Care Provider] -
[2018-07-10] MEDS: *HR* Heparin 5,000 UNIT/ML VIAL SQ SCH (17:42)
[2018-07-10] MEDS ORDERED: diazePAM 10 MG/2 ML SYRINGE IVP ONE (22:35)
[2018-07-11] MEDS: *HR* OxyCODONE Immed Rel 5 MG TABLET PO PRN ×2 (02:03→21:52)
[2018-07-11] MEDS: Levalbuterol Neb 1.25 MG/3 ML IH SCH ×4 (03:44→22:42)
[2018-07-11] MEDS: *HR* Heparin 5,000 UNIT/ML VIAL SQ SCH (06:31)
--- NOTE | 2018-07-11 06:44 | Event Note ---
Date of Encounter: 07/11/18 Time of Encounter: 06:43 Nephrology Chart Review With relatively stable renal function, I will sign-off at this point. No new recommendations other than outpt Nephrology follow up in about 2-5 weeks and to check a BMP about 1 week after discharge. Thank you for having consulted the [facility] group. Please feel free to call if questions and/or re-consult if indicated.
[2018-07-11 07:03] LABS: Hematocrit 33.9 % (37.5-50.1); Hemoglobin 11.1 g/dL (12.9-16.9); Mean Corpuscular HGB Conc 32.7 g/dL (31.6-35.5); Red Cell Distribution Width 17.3 % (11.5-14.5)
[2018-07-11 07:04] LABS: Albumin 2.8 g/dL (3.5-5.7); Albumin/Globulin Ratio 0.8 (1.1-2.2); Bilirubin,Indirect 2.3 mg/dL (0.0-1.2); Bilirubin,Total 9.3 mg/dL (0.3-1.0); Globulin 3.7 g/dL (2.4-3.5); Potassium 4.7 mEq/L (3.5-5.1); Total Protein 6.5 g/dL (6.4-8.9)
[2018-07-11 07:05] LABS: Immature Platelets 12.7 % (1.1-6.1); Mean Corpuscular Hemoglobin 29.7 pg (28.0-33.3); Mean Corpuscular Volume 90.6 fL (83.0-100.0); Mean Platelet Volume 11.6 fL (9.4-12.4); Nucleated Red Blood Cells 0.5 /100 WBC (0); Red Blood Count 3.74 M/mcL (4.19-5.50)
[2018-07-11 07:10] LABS: Platelet Count 69 K/mcL (140-400)
[2018-07-11 08:09] LABS: Lymphocytes # 0.5 K/mcL (0.6-4.6); Neutrophils # 10.6 K/mcL (1.6-8.9); Reactive Lymphocytes Present (Not Present)
[2018-07-11 08:11] LABS: Platelet Estimate Decreased (Normal)
[2018-07-11] MEDS: Insulin DETEMIR 100 UNIT/ML X5UNITS SQ SCH (08:22)
[2018-07-11] MEDS: Spironolactone 25 MG TABLET PO SCH (08:22)
[2018-07-11] MEDS: Diltiazem CD (24hr) 180 MG CAPSULE PO SCH (08:22)
[2018-07-11] MEDS: cefTRIAXone 2,000 MG in Water for inj. (sterile) 20 ML 20 ML IVP SCH (08:22)
[2018-07-11] MEDS: Sennosides/Docusate Sodium TABLET PO SCH ×2 (08:22→21:52)
[2018-07-11] MEDS: Insulin LISPRO 300 UNITS/3 ML VIAL SQ SCH ×3 (08:23→17:02)
[2018-07-11] MEDS ORDERED: hydrOXYzine pamoate 25 MG CAPSULE PO PRN (08:42)
[2018-07-11] MEDS ORDERED: hydrOXYzine pamoate 25 MG CAPSULE PO ONE (08:43)
--- NOTE | 2018-07-11 08:52 | Internal Med Progress Note ---
Hospitalist Progress Note - Encounter Date of Encounter: 07/11/18 Time of Encounter: 11:00 - Subjective Interval History: Patient has been transferred from the ICU to medical floor after management for septic shock due to bacteremia (Escherichia coli) status post stone extraction due to obstruction. Patient's transaminases this morning continues to be elevated CT of the abdomen/pelvis showed cholelithiasis without acute cholecystitis is on 07/07/18; MRCP pending and GI consulted - Exam Vitals: Temp Pulse Resp BP Pulse Ox 98.8 F 73 18 116/72 91 07/11/18 07:29 07/11/18 07:29 07/11/18 07:29 07/11/18 07:29 07/11/18 07:29 Exam: Gen.: Nonacute distress, alert and oriented 3 ENT: Mucosal membranes moist Respiratory: Lungs are clear to auscultation bilaterally without any wheezing rhonchi or rales Cardiovascular: Normal S1 and S2 regular rate rhythm no murmurs rubs or gallops Abdomen: Soft, nontender and nondistended with positive bowel sounds Extremities: No lower extremity edema Skin: Normal color - Assessment and Plan (1) Elevated transaminase level Current Visit: Yes Status: Acute Assessment and Plan: Patient with continued elevated transaminases this morning; total bilirubin 9.3, direct bilirubin 7.0, AST 246 and ALT 180 with alk phosphatase of 321. CT of the abdomen/pelvis on 07/07/18 showed cholelithiasis without acute cholecystitis in addition to nodularity consistent with liver cirrhosis. MRCP ordered and is pending GI consulted and appreciate recommendations (2) Bacteremia Current Visit: Yes Status: Acute Assessment and Plan: Cultures positive for Escherichia coli on 07/06/18; repeat blood cultures pending Etiology unknown as urine cultures negative but patient did have obstructive stone that was removed by urology Continue day 3 of IV ceftriaxone for a total of 6 days of IV antibiotics (was on IV Zosyn). (3) Septic shock Current Visit: Yes Status: Acute Assessment and Plan: Resolved; secondary to Escherichia coli bacteremia Continue management as above (4) Acute cystitis with hematuria Current Visit: Yes Status: Ruled-out Assessment and Plan: Urine cultures negative therefore UTI ruled out (5) Atrial flutter with rapid ventricular response Current Visit: No Status: Acute Assessment and Plan: Rate controlled on Cardizem [id number] score 3 (age, HTN, CHF) Will consider restarting patient's Eliquis (6) Renal failure Current Visit: Yes Status: Acute Assessment and Plan: Patient's renal function continues to improve as was 4.23 on admission and today is 1.57; GFR was 14 on admission and today is 44 Nephrology with recommendations for continue renal protective strategies without any need for MARKETING TRAFFIC COORDINATOR at this time Continue to monitor (7) Acute respiratory failure with hypoxemia Current Visit: Yes Status: Acute Assessment and Plan: Patient continues to require supplemental oxygenation at 2 L nasal cannula Will wean supplemental oxygenation as tolerates (8) COPD with exacerbation Current Visit: Yes Status: Acute Assessment and Plan: Resolved; continue scheduled Xopenex (9) Pulmonary hypertension Current Visit: Yes Status: Acute Assessment and Plan: Moderate to severe pulmononary HTN (10) Type II diabetes mellitus Current Visit: Yes Status: Chronic Assessment and Plan: SSI for now. Will monitor glucose. (11) Hypertension Current Visit: No Status: Chronic Assessment and Plan: Patient was on lopressor at home but was held due to hypotension Blood pressures controlled on Cardizem and spironolactone (12) Morbid obesity Current Visit: Yes Status: Acute Assessment and Plan: Life style modification such as diet and exercise. (13) Anemia Current Visit: No Status: Chronic Assessment and Plan: Stable; continue to monitor - Time Spent with Patient Total time spent is greater than 50% in coordination of care (as documented) at patient's floor/unit and/or counseling patient: Internal Medicine: Result - Labs CBC & Chem 7: 07/11/18 04:00 07/11/18 04:00 Labs: Short CBC 07/11/18 Range/Units 04:00 WBC 11.5 H (4.3-11.1) K/mcL Hgb 11.1 L (12.9-16.9) g/dL Hct 33.9 L (37.5-50.1) % Plt Count 69 L (140-400) K/mcL Neutrophils # 10.6 H (1.6-8.9) K/mcL BMP 07/11/18 04:00 Sodium 130 L Potassium 4.7 Chloride 101 Carbon Dioxide 22 L BUN 45 H Creatinine 1.57 H Glucose 145 H Calcium 9.0 Liver Function 07/11/18 Range/Units 04:00 Total Bilirubin 9.3 H (0.3-1.0) mg/dL Direct Bilirubin 7.0 H (0.0-0.2) mg/dL AST 246 H (13-39) Units/L ALT 180 H (7-52) Units/L Alkaline Phosphatase 321 H (34-104) Units/L Albumin 2.8 L (3.5-5.7) g/dL - ABG Interpretation ABG results: ABG ABG pH 7.35 pH Units (7.32-7.45) 07/07/18 10:42 ABG pCO2 37 mmHg (35-45) 07/07/18 10:42 ABG pO2 70 mmHg (85-104) L 07/07/18 10:42 ABG O2 Saturation 93 % (95-98) L 07/07/18 10:42 PT/INR, D-dimer PT 20.0 Seconds (9.4-12.1) H 07/07/18 12:28 D-Dimer 2078 ng/mLFEU (0-500) H 07/07/18 13:31 Consult Discharge Plan - Plan [facility]errals: [facility] [Primary Care Provider] - __ (6) Renal failure Qualifiers: Renal failure chronicity: acute Acute renal failure type: unspecified Qualified Code(s): N17.9 - Acute kidney failure, unspecified (10) Type II diabetes mellitus Qualifiers: Diabetes mellitus long term care pharmacist insulin use: unspecified [facility] insulin use status Diabetes mellitus complication status: with unspecified complications Qualified Code(s): E11.8 - Type 2 diabetes mellitus with unspecified complica tions (11) Hypertension Qualifiers: Hypertension type: essential hypertension Qualified Code(s): I10 - Essential (primary) hypertension (13) Anemia Qualifiers: Anemia type: iron deficiency Iron deficiency anemia type: unspecified iron deficiency Qualified Code(s): D50.9 - Iron deficiency anemia, unspecified
--- NOTE | 2018-07-11 10:27 | Gastroenterology Consult Note ---
<StrongClark Mcmanus - Last Filed: 07/11/18 10:24> Date of Encounter: 07/11/18 Time of Encounter: 09:30 - Assessment and plan (1) Cirrhosis Status: Chronic Assessment and plan: On admission MELD-Na before and Child Gandhi class B. Today MELD-Na 29 and Child- Gandhi class C. recommend 2-4 bowel movements per day, use lactulose when necessary. Check AFP. Qualifiers: Hepatic cirrhosis type: unspecified hepatic cirrhosis Ascites presence: with ascites Qualified Code(s): K74.60 - Unspecified cirrhosis of liver; R18.8 - Other ascites (2) Elevated transaminase level Status: Acute Assessment and plan: Total bili 9.3, direct bili 7, AST 246, ALT 180, alkaline phosphatase 321. CT A/P 07/06 showed cholelithiasis but no acute cholecystitis, cirrhosis, and 1.6 cm stone in the right UPJ. Check LDH, haptoglobin, hepatitis profile. (3) Bacteremia Status: Acute Assessment and plan: Management per primary team. (4) Morbid obesity Status: Acute - Time Spent With Patient Total time spent is greater than 50% in coordination of care (as documented) at patient's floor/unit and/or counseling patient: GI History of Present Illness - Data of Consult Patient: known to practice within the last 3 years Consult date: 07/11/18 Requesting Physician: Chino Arvizu - Consult Narrative Reason for consult: Elevated LFTs History of present illness: Mr. Michel is a 72 year old male with PMHx of arthritis, Afib, cirrhosis, COPD, DM, GERD, GI bleed, Hep C, HLD, HTN [facility], [facility], and lightheadedness. Patient was found to have obstructive uropathy with a 6 cm stone in the right UPJ. Urology then preformed a stone removal with placement of ureteral stent. The patient was found to be tachycardic with elevated lactic acid. Patient developed septic shock due to Escherichia coli bacteremia status post stone extraction. We were consulted to evaluate patient with elevated total bili 9.3, direct bili 7, AST 246, ALT 180, alkaline phosphatase 321. CT A/P 07/06 showed cholelithiasis but no acute cholecystitis, cirrhosis, and 1.6 cm stone in the right UPJ. Abdominal ultrasound on 07/09 showed no ascites. Procedures: Colonoscopy 08/02/2016 Dr. Landeros: 14 mm tubular adenoma in ascending colon. EGD 08/02/2016 Dr. Landeros: Normal NSAIDs: ibuprofen Anticoagulation: Xarelto Past Med Surg Social Fam HX - Past Medical History Medical history: arthritis, atrial fibrillation, cirrhosis, COPD, diabetes, GERD, GI bleed, hepatitis, hyperlipidemia, hypertension, liver disease, osteop orosis, RA, syncope, other Additional medical history: Hx hepatitis c, Psychiatric history: anxiety, PTSD - Past Surgical History Surgical History: non-contributory Additional surgical history: tumor removal - Social History Smoking Status: Never smoker Smokeless Tobacco Status: No Alcohol use: none Drug use: none - Family History Father History Unknown: Yes Hx Family Cancer: Yes - Gastrointestinal Gastrointestinal: Present: as per HPI - Constitutional Constitutional: as per HPI - EENT Eyes: as per HPI Ears: Present: as per HPI Nose, mouth and throat: Present: as per HPI - Cardiovascular Cardiovascular ROS: Present: as per HPI - Respiratory Respiratory IM: Present: as per HPI - Genitourinary Genitourinary: Absent: change in color, Urinary frequency - Neurological ROS Neurological GI: Present: as per HPI - Hematologic/Lymphatic Hematologic/Lymphatic pediatric: Present: as per HPI - Musculoskeletal Musculoskeletal ROS GI: Present: as per HPI - Integumentary Integumentary GI: Present: as per HPI - Psychiatric ROS Psychiatric GI: Present: as per HPI - Endocrine Endocrine IM: Present: as per HPI - Constitutional Vitals: Temp Pulse Resp BP Pulse Ox 98.8 F 73 18 116/72 91 07/11/18 07:29 07/11/18 07:29 07/11/18 07:29 07/11/18 07:29 07/11/18 07:29 General appearance: Present: cooperative, A&O X 3, no acute distress, answers questions appropriately - Head Head exam: Present: atraumatic, normocephalic - Eye Eye exam: Present: normal appearance, sclera anicteric - ENT ENT exam: Present: mucous membranes dry - Neck Neck exam general surgery: Present: normal inspection, trachea midline - Respiratory Respiratory exam: Present: decreased breath sounds, CTAB. Absent: rales, rhonchi - Cardiovascular Cardiovascular exam: Present: RRR, +S1, +S2 - GI/Abdominal GI/Abdominal exam: Present: soft, no peritoneal signs. Absent: distended, firm, guarding, tenderness - Rectal Rectal exam: Present: deferred - Extremities Exam Extremities exam: Present: warm - Neurological Exam Neurological exam: Present: no focal deficits - Psychiatric Psychiatric exam: Present: normal affect, normal mood - Skin Skin exam: Present: dry, intact, normal color, warm Results - Labs CBC & Chem 7: 07/11/18 04:00 07/11/18 04:00 Labs: Last Result Calcium 9.0 mg/dL (8.6-10.3) 07/11/18 04:00 Troponin I 0.05 ng/mL (< 0.04) H* 07/07/18 05:57 Entire Visit Hgb 11.1 g/dL (12.9-16.9) L 07/11/18 04:00 Hct 33.9 % (37.5-50.1) L 07/11/18 04:00 PT 20.0 Seconds (9.4-12.1) H 07/07/18 12:28 Total Bilirubin 9.3 mg/dL (0.3-1.0) H 07/11/18 04:00 AST 246 Units/L (13-39) H 07/11/18 04:00 ALT 180 Units/L (7-52) H 07/11/18 04:00 Ammonia 42 mcmol/L (16-53) 07/06/18 21:42 Lipase 10 Units/L (11-82) L 07/06/18 20:38 E. coli (PCR) DETECTED (Not Detect) A 07/06/18 21:10 - ABG ABG results: ABG ABG pH 7.35 pH Units (7.32-7.45) 07/07/18 10:42 ABG pCO2 37 mmHg (35-45) 07/07/18 10:42 ABG pO2 70 mmHg (85-104) L 07/07/18 10:42 ABG O2 Saturation 93 % (95-98) L 07/07/18 10:42 PT/INR, D-dimer PT 20.0 Seconds (9.4-12.1) H 07/07/18 12:28 D-Dimer 2078 ng/mLFEU (0-500) H 07/07/18 13:31 Consult Discharge Plan - Plan [facility]errals: [facility]Primary Care Provider[facility] - <Marcus Vickers - Last Filed: 07/18/18 07:25> Date of Encounter: 07/11/18 - Time Spent With Patient Total time spent is greater than 50% in coordination of care (as documented) at patient's floor/unit and/or counseling patient: GI History of Present Illness - Data of Consult Requesting Physician: Chino Arvizu - Consult Narrative History of present illness: Mr. Michel is a 72 year old male - Constitutional Vitals: Temp Pulse Resp BP Pulse Ox 99.0 F 91 18 113/78 96 07/12/18 07:17 07/12/18 07:17 07/12/18 07:17 07/12/18 07:17 07/12/18 07:17 Results - Labs CBC & Chem 7: 07/12/18 04:00 07/11/18 04:00 Labs: Last Result Calcium 9.0 mg/dL (8.6-10.3) 07/11/18 04:00 Troponin I 0.05 ng/mL (< 0.04) H* 07/07/18 05:57 Entire Visit Hgb 10.5 g/dL (12.9-16.9) L 07/12/18 04:00 Hct 32.0 % (37.5-50.1) L 07/12/18 04:00 Haptoglobin 233 mg/dL (30-200) H 07/11/18 11:00 PT 20.0 Seconds (9.4-12.1) H 07/07/18 12:28 Total Bilirubin 9.3 mg/dL (0.3-1.0) H 07/11/18 04:00 AST 246 Units/L (13-39) H 07/11/18 04:00 ALT 180 Units/L (7-52) H 07/11/18 04:00 Ammonia 42 mcmol/L (16-53) 07/06/18 21:42 Lipase 10 Units/L (11-82) L 07/06/18 20:38 E. coli (PCR) DETECTED (Not Detect) A 07/06/18 21:10 - ABG ABG results: ABG ABG pH 7.35 pH Units (7.32-7.45) 07/07/18 10:42 ABG pCO2 37 mmHg (35-45) 07/07/18 10:42 ABG pO2 70 mmHg (85-104) L 07/07/18 10:42 ABG O2 Saturation 93 % (95-98) L 07/07/18 10:42 PT/INR, D-dimer PT 20.0 Seconds (9.4-12.1) H 07/07/18 12:28 D-Dimer 2078 ng/mLFEU (0-500) H 07/07/18 13:31 - Attending Attestation Agree with plan. We discussed with team. I have personally performed a face to face evaluation on this patient. I have reviewed and agree with the care plan. History and Exam by me shows:
[2018-07-11] MEDS ORDERED: *HR* LORazepam 2 MG/ML VIAL IVP PRN (11:12)
[2018-07-11] MEDS: Simethicone 80 MG TAB.CHEW PO PRN ×2 (12:00→17:54)
[2018-07-11 12:24] LABS: Hepatitis A Antibody IgM Nonreactive (Nonreactive); Hepatitis B Core IgM Nonreactive (Nonreactive); Hepatitis B Surface Antigen Nonreactive (Nonreactive)
[2018-07-11 12:36] LABS: Hepatitis C Virus Antibody Reactive (Nonreactive)
--- NOTE | 2018-07-11 15:43 | Electrocardiograph Report ---
[address] [address] Test Date: 2018-07-06 Pat Name: Avery Michel Department: [id number] Room: 2A11 Gender: M Mapping Technician: : 1945 Requested By: Malcom Deshpande Order Number: [id number] Reading MD: Jamison José Measurements Intervals [place] Rate: 112 P: [place]: QRS: 17 QRSD: 99 T: 60 QT: 311 QTc: 425 Interpretive Statements Atrial fibrillation Abnormal R-wave progression, late transition Electronically Signed On 07-11-2018 15:41:16 EDT by Jamison José
--- NOTE | 2018-07-11 15:50 | Electrocardiograph Report ---
[place] [address] Test Date: 2018-07-07 Pat Name: Avery Michel Department: 106 Room: 2A11 Gender: Nozzleman: : 1945 Requested By: Terrell Ceballos Order Number: [id number] Reading MD: Jamison José Measurements Intervals [place] Rate: 140 P: [place]: 0 QRS: -12 QRSD: 98 T: 89 QT: 270 QTc: 351 Interpretive Statements ATRIAL FIBRILLATION WITH RAPID VENTRICULAR RESPONSE ABNORMAL RHYTHM ECG Electronically Signed On 07-11-2018 15:49:21 EDT by Jamison José
[2018-07-11] MEDS: hydrOXYzine pamoate 25 MG CAPSULE PO PRN ×2 (17:03→21:52)
[2018-07-11] MEDS: Apixaban 5 MG TABLET PO SCH (21:52)
[2018-07-12] MEDS: Insulin LISPRO 300 UNITS/3 ML VIAL SQ SCH ×3 (00:49→11:22)
[2018-07-12] MEDS: Levalbuterol Neb 1.25 MG/3 ML IH SCH ×2 (03:40→10:31)
[2018-07-12] MEDS: *HR* OxyCODONE Immed Rel 5 MG TABLET PO PRN (05:57)
[2018-07-12 06:13] LABS: Basophils % 0.3 %; Eosinophils % 0.4 %; Hemoglobin 10.5 g/dL (12.9-16.9); Immature Granulocytes % 1.9 % (0-4); Lymphocytes # 0.3 K/mcL (0.6-4.6); Lymphocytes % 4.5 %; Mean Corpuscular HGB Conc 32.8 g/dL (31.6-35.5); Mean Corpuscular Hemoglobin 29.5 pg (28.0-33.3); Mean Corpuscular Volume 89.9 fL (83.0-100.0); Mean Platelet Volume 11.9 fL (9.4-12.4); Monocytes # 0.2 K/mcL (0.0-1.3); Monocytes % 3.5 %; Neutrophils # 6.1 K/mcL (1.6-8.9); Red Blood Count 3.56 M/mcL (4.19-5.50); Red Cell Distribution Width 17.7 % (11.5-14.5); Segmented Neutrophils % 89.4 %
[2018-07-12 06:14] LABS: Platelet Count 64 K/mcL (140-400)
[2018-07-12 06:33] LABS: Platelet Estimate Decreased (Normal); Reactive Lymphocytes Present (Not Present)
[2018-07-12 07:18] VITALS: BP 113/78
--- NOTE | 2018-07-12 07:42 | Internal Med Progress Note ---
Hospitalist Progress Note - Subjective Interval History: Patient has been transferred from the ICU to medical floor after management for septic shock due to bacteremia (Escherichia coli) status post stone extraction due to obstruction. Patient's transaminases this morning continues to be elevated CT of the abdomen/pelvis showed cholelithiasis without acute cholecystitis is on 07/07/18; MRCP pending and GI consulted - Exam Vitals: Temp Pulse Resp BP Pulse Ox 99.0 F 91 18 113/78 96 07/12/18 07:17 07/12/18 07:17 07/12/18 07:17 07/12/18 07:17 07/12/18 07:17 - Assessment and Plan (1) Elevated transaminase level Current Visit: Yes Status: Acute Assessment and Plan: Patient with continued elevated transaminases this morning; total bilirubin 9.3, direct bilirubin 7.0, AST 246 and ALT 180 with alk phosphatase of 321. CT of the abdomen/pelvis on 07/07/18 showed cholelithiasis without acute cholecystitis in addition to nodularity consistent with liver cirrhosis. MRCP showed Liver cirrhosis with mass in segment VII concerning for hepatocellular carcinoma. GI consulted and appreciate recommendations (2) Liver mass Current Visit: Yes Status: Acute Assessment and Plan: MRCP with findings as above concerning for hepatocellular carcinoma GI following and appreciate recommendations (3) Cholelithiasis Current Visit: Yes Status: Acute Assessment and Plan: MRA of the abdomen showed cholelithiasis with gallbladder wall thickening (4) Bacteremia Current Visit: Yes Status: Acute Assessment and Plan: Cultures positive for Escherichia coli on 07/06/18; repeat blood cultures pending Etiology unknown as urine cultures negative but patient did have obstructive stone that was removed by urology Continue day 4 of IV ceftriaxone for a total of 7 days of IV antibiotics (was on IV Zosyn). (5) Septic shock Current Visit: Yes Status: Acute Assessment and Plan: Resolved; secondary to Escherichia coli bacteremia Continue management as above (6) Atrial flutter with rapid ventricular response Current Visit: No Status: Acute Assessment and Plan: Rate controlled on Cardizem [id number] score 3 (age, HTN, CHF); continue oral anticoagulation with Eliquis (7) Renal failure Current Visit: Yes Status: Acute Assessment and Plan: Patient's renal function continues to improve as was 4.23 on admission and yesterday was 1.57; GFR was 14 on admission and yesterday was 44 Nephrology with recommendations for continue renal protective strategies without any need for NONPROFIT FUNDRAISER at this time Continue to monitor (8) Acute respiratory failure with hypoxemia Current Visit: Yes Status: Acute Assessment and Plan: Patient continues to require supplemental oxygenation at 2 L nasal cannula Will wean supplemental oxygenation as tolerates (9) COPD with exacerbation Current Visit: Yes Status: Acute Assessment and Plan: Resolved; continue scheduled Xopenex (10) Pulmonary hypertension Current Visit: Yes Status: Acute Assessment and Plan: Moderate to severe pulmononary HTN (11) Type II diabetes mellitus Current Visit: Yes Status: Chronic Assessment and Plan: SSI for now. Will monitor glucose. (12) Hypertension Current Visit: No Status: Chronic Assessment and Plan: Patient was on lopressor at home but was held due to hypotension Blood pressures controlled on Cardizem and spironolactone (13) Morbid obesity Current Visit: Yes Status: Acute Assessment and Plan: Life style modification such as diet and exercise. (14) Anemia Current Visit: No Status: Chronic Assessment and Plan: Stable; continue to monitor (15) Acute cystitis with hematuria Current Visit: Yes Status: Ruled-out Assessment and Plan: Urine cultures negative therefore UTI ruled out DVT Prophylaxis: On Eliquis - Time Spent with Patient Total time spent is greater than 50% in coordination of care (as documented) at patient's floor/unit and/or counseling patient: Internal Medicine: Result - Labs CBC & Chem 7: 07/12/18 04:00 07/11/18 04:00 Labs: Short CBC 07/11/18 07/12/18 Range/Units 04:00 04:00 WBC 6.8 (4.3-11.1) K/mcL Hgb 10.5 L (12.9-16.9) g/dL Hct 32.0 L (37.5-50.1) % Plt Count 64 L (140-400) K/mcL Neutrophils # 10.6 H 6.1 (1.6-8.9) K/mcL - ABG Interpretation ABG results: ABG ABG pH 7.35 pH Units (7.32-7.45) 07/07/18 10:42 ABG pCO2 37 mmHg (35-45) 07/07/18 10:42 ABG pO2 70 mmHg (85-104) L 07/07/18 10:42 ABG O2 Saturation 93 % (95-98) L 07/07/18 10:42 PT/INR, D-dimer PT 20.0 Seconds (9.4-12.1) H 07/07/18 12:28 D-Dimer 2078 ng/mLFEU (0-500) H 07/07/18 13:31 - Impressions Impressions Abdomen MRI 07/11/18 08:47 IMPRESSION: 1. Severely limited secondary to patient inability to hold breath, body habitus, and claustrophobia. All sequences were not obtained. 2. Liver cirrhosis with mass in segment VII concerning for hepatocellular carcinoma. Finding is seen on CT dated 07/06/2018. Consider dedicated CT triple phase liver for further evaluation as clinically warranted. 3. Cholelithiasis with gallbladder wall thickening, likely reflecting underlying liver disease. 4. Splenomegaly, likely representing sequelae of portal hypertension. D/ / 07/11/2018 19:07:32 Socorro Maddox MD / carly Interpreting Provider: Socorro Maddox MD Consult Discharge Plan - Plan [facility]errals: [facility] [Primary Care Provider] - (7) Renal failure Qualifiers: Renal failure chronicity: acute Acute renal failure type: unspecified Qualified Code(s): N17.9 - Acute kidney failure, unspecified (11) Type II diabetes mellitus Qualifiers: Diabetes mellitus net making supervisor insulin use: unspecified mcc insulin use status Diabetes mellitus complication status: with unspecified complications Qualified Code(s): E11.8 - Type 2 diabetes mellitus with unspecified c omplications (12) Hypertension Qualifiers: Hypertension type: essential hypertension Qualified Code(s): I10 - Essential (primary) hypertension (14) Anemia Qualifiers: Anemia type: iron deficiency Iron deficiency anemia type: unspecified iron deficiency Qualified Code(s): D50.9 - Iron deficiency anemia, unspecified
[2018-07-12] MEDS: Spironolactone 25 MG TABLET PO SCH (08:25)
[2018-07-12] MEDS: Sennosides/Docusate Sodium TABLET PO SCH (08:25)
[2018-07-12] MEDS: Diltiazem CD (24hr) 180 MG CAPSULE PO SCH (08:25)
[2018-07-12] MEDS: Apixaban 5 MG TABLET PO SCH (08:25)
[2018-07-12] MEDS: cefTRIAXone 2,000 MG in Water for inj. (sterile) 20 ML 20 ML IVP SCH (08:26)
[2018-07-12] MEDS: Insulin DETEMIR 100 UNIT/ML X5UNITS SQ SCH (08:30)
[2018-07-12] MEDS: hydrOXYzine pamoate 25 MG CAPSULE PO PRN (08:39)
--- NOTE | 2018-07-12 18:49 | Discharge Summary ---
Orders not resulted at time of discharge: Pending orders 07/07/18 03:45 Urinalysis Reflex Cult & Micro [URIN] Stat 07/07/18 12:28 Ionized Calcium,venous blood Stat 07/08/18 06:39 Culture,Sputum with Gram Stain [RM] Stat 07/10/18 08:35 Culture,Blood [BC] Routine 07/11/18 11:00 AFP Tumor Marker Non- Routine Haptoglobin Routine Date of Encounter: 07/12/18 Time of Encounter: 11:00 - Discharge Diagnosis (1) Elevated transaminase level Priority: Primary Status: Acute (2) Liver mass Priority: Primary Status: Acute (3) Cholelithiasis Priority: Primary Status: Acute Qualifiers: Biliary obstruction: without biliary obstruction Qualified Code(s): K80.20 - Calculus of gallbladder without cholecystitis without obstruction (4) Bacteremia Priority: Primary Status: Acute (5) Septic shock Priority: Primary Status: Acute (6) Atrial flutter with rapid ventricular response Priority: Primary Status: Acute (7) Renal failure Priority: Primary Status: Acute Qualifiers: Renal failure chronicity: acute Acute renal failure type: unspecified Qualified Code(s): N17.9 - Acute kidney failure, unspecified (8) Acute respiratory failure with hypoxemia Priority: Primary Status: Acute (9) COPD with exacerbation Priority: Primary Status: Acute (10) Pulmonary hypertension Priority: Primary Status: Acute (11) Type II diabetes mellitus Priority: Primary Status: Chronic Qualifiers: Diabetes mellitus penitentiary insulin use: unspecified terminal make up operator insulin use status Diabetes mellitus complication status: with unspecified complications Qualified Code(s): E11.8 - Type 2 diabetes mellitus with unspecified complications (12) Hypertension Priority: Primary Status: Chronic Qualifiers: Hypertension type: essential hypertension Qualified Code(s): I10 - Essential (primary) hypertension (13) Morbid obesity Priority: Primary Status: Acute (14) Anemia Priority: Primary Status: Chronic Qualifiers: Anemia type: iron deficiency Iron deficiency anemia type: unspecified iron deficiency Qualified Code(s): D50.9 - Iron deficiency anemia, unspecified (15) Acute cystitis with hematuria Priority: Primary Status: Ruled-out Hospital course: Patient is a 72-year-old male who was admitted due to right flank pain shortness of breath. During patients hospital stay, he was found to be in septic shock in addition to acute renal failure, and A. fib with RVR. Patient was found to be bacteremic with Escherichia coli growing; repeat blood cultures still pending Urology was consulted for stone obstruction obstruction due to obstruction. Patient septic shock resolved on IV antibiotics and acute renal failure improved. Patients rate for atrial fibrillation also controlled during hospital stay. Patient also had continued elevated transaminases; total bilirubin 9.3, direct bilirubin 7.0, AST 246 and ALT 180 with alk phosphatase of 321. CT of the abdomen/pelvis on 07/07/18 showed cholelithiasis without acute cholecystitis in addition to nodularity consistent with liver cirrhosis. MRCP showed Liver cirrhosis with mass in segment VII concerning for hepatocellular carcinoma. GI was consulted for further recommendations that patient left AGAINST MEDICAL ADVICE. Physical therapy was consulted with recommendations that patient be placed at correction facility. - Time Spent with Patient Total time spent providing and/or coordinating discharge services: - Discharge Medications Home Medications: Docusate [Colace] 200 mg PO DAILY PRN 10/23/15 [History] Gabapentin [Neurontin] 600 mg PO TID 10/23/15 [History] Diltiazem CD (24hr) [Cardizem CD] 180 mg PO DAILY 30 Days cap.er.24h 10/25/15 [Rx] Ferrous Sulfate 325 mg PO TID 07/30/16 [History] Ammonium Lactate [Rere-Hydrolac] 1 appl TP BID 07/07/18 [History] Atorvastatin [Lipitor] 20 mg PO HS 07/07/18 [History] Cholecalciferol (D-3) [Vitamin D] 1,000 unit PO DAILY 07/07/18 [History] FluocinoNIDE 0.05% CRM [Lidex] 1 appl TP DAILY 07/07/18 [History] Furosemide [Lasix] 40 mg PO DAILY 07/07/18 [History] Lidocaine 1 appl TP TID PRN 07/07/18 [History] Loratadine [Allergy Relief] 10 mg PO DAILY 07/07/18 [History] NALOXONE 4 MG Nasal [place] [Narcan] 4 mg NS AD 07/07/18 [History] Ondansetron HCl [Zofran] 4 mg PO Q8HR PRN 07/07/18 [History] Oxycodone HCl [Roxybond] 15 mg PO Q6H PRN 07/07/18 [History] Pantoprazole Sodium [Protonix] 40 mg PO DAILY 07/07/18 [History] Spironolactone [Aldactone] 12.5 mg PO DAILY 07/07/18 [History] Terbinafine HCl [Terbinafine] 1 appl TP BID 07/07/18 [History] Allergies/Adverse Reactions: Allergy/AdvReac Type Severity Reaction Status Date / Time No Known Allergies Allergy Verified 07/30/16 17:02 Date of admission: 07/07/18 06:44 [facility] care physician: [facility] Consults: 07/07/18 10:58 Consult to Cardiology [CONS] Routine Comment: Consulting Provider: Cardiology [place] Reason for Consult: afib rvr Call Completed: Yes Consult to Pulmonology [CONS] Routine Consulting Provider: [facility] [place] Reason for Consult: acute respiratory failure Call Completed: Yes 07/07/18 11:04 Consult to Nephrology [CONS] Routine Consulting Provider: Kidney Fely/MIGUEL/KARRIE/IKER Reason for Consult: acute kidney injury Call Completed: Yes 07/10/18 13:21 Consult to Physical Therapy [CONS] Routine Comment: Evaluate, develop and implement POC Reason for Consult: Weakness, discharge planning Does patient have active BEDREST order?: No Is patient medically & hemodynamically stable?: Yes Patient assessed for mobility or mobilized this visit?: Yes 07/10/18 13:22 Consult to Occupational Therapy [CONS] Routine Comment: Evaluate, develop and implement POC Reason for Consult: Weakness, discharge planning, lives home alone Does patient have active BEDREST order?: No Is patient medically & hemodynamically stable?: Yes Patient assessed for mobility or mobilized this visit?: Yes 07/11/18 09:02 Consult to Gastroenterology [CONS] Routine Consulting Provider: Gastroenterology [place] Reason for Consult: Elevated transaminases Call Completed: Yes 07/11/18 10:56 Consult to Independent Jeweler [CONS] Routine Reason for SW Consult: pt needs ecf - Constitutional Vitals: Temp Pulse Resp BP Pulse Ox 99.0 F 91 18 113/78 96 07/12/18 07:17 07/12/18 07:17 07/12/18 07:17 07/12/18 07:17 07/12/18 07:17 General appearance: Present: A&O X 0, morbidly obese, severe distress Exam: Gen.: Nonacute distress, alert and oriented 3 Skin: Normal color - Patient Status Disposition: Left Against Medical Advice Condition: Fair - Discharge Instructions Follow Up With: [facility] [Primary Care Provider[facility] -
== END 2018-07-12 13:36 | disposition left against medical advice (07) | DRG 853 ==
LOC: 2NENU 20:13 → EMEROOARM 20:13 → 2NENU 07-07 02:08 → SUATTDRO 07-07 06:44 → ICNU 07-07 11:10 → 2ANU 07-09 18:33
PROVIDERS: ADMIT Family Medicine; ATTEND Hospitalist

== ENCOUNTER 2020-09-19 14:59 | Observation (INO) ==
[2020-09-19] MEDS ORDERED: Furosemide 40 MG in 0.9 % Sodium Chloride 50 ML IVPB ONE (15:16)
[2020-09-19] MEDS ORDERED: Furosemide 40 MG/4 ML VIAL IVP ONE (15:25)
[2020-09-19 16:09] LABS: Hematocrit 28.7 % (37.5-50.1); Hemoglobin 8.2 g/dL (12.9-16.9)
[2020-09-19 16:23] LABS: Albumin 3.4 g/dL (3.5-5.7); Bilirubin,Direct 0.1 mg/dL (0.0-0.2); Bilirubin,Indirect 0.4 mg/dL (0.0-1.0); Bilirubin,Total 0.5 mg/dL (0.3-1.0); Globulin 3.4 g/dL (2.4-3.5); Total Protein 6.8 g/dL (6.4-8.9)
[2020-09-19] MEDS ORDERED: Naloxone 0.4 MG/ML INJ IVP PRN (17:59)
[2020-09-19] MEDS ORDERED: Acetaminophen 325 MG TABLET PO PRN (17:59)
[2020-09-19] MEDS ORDERED: *HR* Dextrose 50 % in Water (Vial) 50 ML VIAL IVP PRN (18:09)
[2020-09-19] MEDS ORDERED: D5% in Water 1,000 ML IVC PRN (18:09)
[2020-09-19] MEDS ORDERED: Dextrose Gel 15 GM/37.5 ML TUBE PO PRN ×2 (18:09)
[2020-09-19] MEDS ORDERED: LIDOCAINE TP PRN (18:23)
[2020-09-19 20:28] LABS: Hemoglobin 7.6 g/dL (12.9-16.9); Mean Platelet Volume 10.3 fL (9.4-12.4)
[2020-09-19 20:29] LABS: Hematocrit 25.8 % (37.5-50.1); Mean Corpuscular HGB Conc 29.5 g/dL (31.6-35.5); Mean Corpuscular Hemoglobin 30.2 pg (28.0-33.3); Mean Corpuscular Volume 102.4 fL (83.0-100.0); Platelet Count 118 K/mcL (140-400); Red Blood Count 2.52 M/mcL (4.19-5.50); Red Cell Distribution Width 18.7 % (11.5-14.5); White Blood Count 4.2 K/mcL (4.3-11.1)
[2020-09-19] MEDS: *HR* OxyCODONE Immed Rel 15 MG TABLET PO SCH ×2 (20:51→23:59)
[2020-09-19] MEDS: Gabapentin 300 MG CAPSULE PO SCH (20:52)
[2020-09-19] MEDS: Melatonin 3 MG TABLET PO PRN (23:59)
[2020-09-20] MEDS: Insulin LISPRO 300 UNITS/3 ML VIAL SUBQ SCH ×4 (00:44→18:17)
[2020-09-20] MEDS: *HR* OxyCODONE Immed Rel 15 MG TABLET PO SCH ×8 (02:59→23:04)
[2020-09-20] MEDS: Ondansetron ODT 4 MG TAB.RAPDIS SL PRN (03:06)
[2020-09-20 05:18] LABS: Basophils % 0.8 %; Eosinophils # 0.1 K/mcL (0.0-0.6); Eosinophils % 3.2 %; Hematocrit 25.7 % (37.5-50.1); Hemoglobin 7.6 g/dL (12.9-16.9); Immature Granulocytes % 0.5 % (0-4); Lymphocytes # 0.6 K/mcL (0.6-4.6); Lymphocytes % 16.9 %; Mean Corpuscular HGB Conc 29.6 g/dL (31.6-35.5); Mean Corpuscular Hemoglobin 30.6 pg (28.0-33.3); Mean Corpuscular Volume 103.6 fL (83.0-100.0); Mean Platelet Volume 11.4 fL (9.4-12.4); Monocytes # 0.4 K/mcL (0.0-1.3); Monocytes % 11.3 %; Neutrophils # 2.5 K/mcL (1.6-8.9); Platelet Count 121 K/mcL (140-400); Red Blood Count 2.48 M/mcL (4.19-5.50); Red Cell Distribution Width 19.2 % (11.5-14.5); Segmented Neutrophils % 67.3 %; White Blood Count 3.7 K/mcL (4.3-11.1)
[2020-09-20 05:21] LABS: INR 1.3; Prothrombin Time 14.6 Seconds (9.4-12.1)
[2020-09-20 05:40] LABS: % Iron Saturation 6 % (20-55); Alanine Aminotransferase 15 Units/L (7-52); Albumin 3.2 g/dL (3.5-5.7); Albumin/Globulin Ratio 1.1 (1.1-2.2); Alkaline Phosphatase 86 Units/L (34-104); Aspartate Amino Transferase 17 Units/L (13-39); BUN/Creatinine Ratio 15 (6-26); Bilirubin,Total 0.5 mg/dL (0.3-1.0); Blood Urea Nitrogen 18 mg/dL (8-23); Calcium 8.8 mg/dL (8.6-10.3); Carbon Dioxide 25 mEq/L (23-29); Chloride 106 mEq/L (98-107); Glucose 101 mg/dL (70-105); Iron 19 mcg/dL (65-175); Osmolality,Calculated 288 (280-300); Potassium 4.2 mEq/L (3.5-5.1); Sodium 138 mEq/L (136-145); Total Protein 6.2 g/dL (6.4-8.9); Transferrin 230 mg/dL (203-362); eGFR For African Americans > 60 (> 60); eGFR For Non-African Americans 57 (> 60)
[2020-09-20] MEDS: Pantoprazole 40 MG VIAL IVP SCH ×2 (06:12→18:24)
[2020-09-20] MEDS: Spironolactone 25 MG TABLET PO SCH (08:04)
[2020-09-20] MEDS: Gabapentin 300 MG CAPSULE PO SCH ×3 (08:04→20:12)
[2020-09-20] MEDS: DilTIAZem CD (24hr) 180 MG CAP.ER.24H PO SCH (08:04)
[2020-09-20] MEDS ORDERED: 0.9 % Sodium Chloride 250 ML ONE (11:56)
[2020-09-20 12:50] LABS: Influenza A PCR Negative (Negative); Influenza B PCR Negative (Negative); Resp. Syncytial Virus PCR Negative (Negative)
[2020-09-20 13:15] LABS: SARS-CoV-2 by PCR (In House) Negative (Negative)
[2020-09-20] MEDS ORDERED: Lidocaine -MPF 2% 2 ML VIAL ONE (14:42)
[2020-09-20] MEDS: 0.9 % Sodium Chloride 1,000 ML IVC SCH (15:36)
[2020-09-20 17:50] LABS: Hematocrit 30.2 % (37.5-50.1); Mean Corpuscular HGB Conc 29.8 g/dL (31.6-35.5); Mean Corpuscular Hemoglobin 30.6 pg (28.0-33.3); Mean Corpuscular Volume 102.7 fL (83.0-100.0); Mean Platelet Volume 10.1 fL (9.4-12.4); Platelet Count 115 K/mcL (140-400); Red Blood Count 2.94 M/mcL (4.19-5.50); Red Cell Distribution Width 18.6 % (11.5-14.5); White Blood Count 3.8 K/mcL (4.3-11.1)
[2020-09-21] MEDS: Insulin LISPRO 300 UNITS/3 ML VIAL SUBQ SCH ×4 (00:17→23:49)
[2020-09-21] MEDS: Ondansetron ODT 4 MG TAB.RAPDIS SL PRN (00:39)
[2020-09-21] MEDS: *HR* OxyCODONE Immed Rel 15 MG TABLET PO SCH ×8 (02:23→23:25)
[2020-09-21 04:34] LABS: Basophils % 0.5 %; Eosinophils # 0.1 K/mcL (0.0-0.6); Eosinophils % 3.5 %; Hematocrit 28.1 % (37.5-50.1); Hemoglobin 8.3 g/dL (12.9-16.9); Immature Granulocytes % 0.5 % (0-4); Lymphocytes # 0.5 K/mcL (0.6-4.6); Lymphocytes % 12.5 %; Mean Corpuscular HGB Conc 29.5 g/dL (31.6-35.5); Mean Corpuscular Hemoglobin 30.3 pg (28.0-33.3); Mean Corpuscular Volume 102.6 fL (83.0-100.0); Mean Platelet Volume 10.6 fL (9.4-12.4); Monocytes # 0.4 K/mcL (0.0-1.3); Monocytes % 9.3 %; Neutrophils # 2.8 K/mcL (1.6-8.9); Platelet Count 109 K/mcL (140-400); Red Blood Count 2.74 M/mcL (4.19-5.50); Red Cell Distribution Width 18.9 % (11.5-14.5); Segmented Neutrophils % 73.7 %; White Blood Count 3.8 K/mcL (4.3-11.1)
[2020-09-21 04:56] LABS: BUN/Creatinine Ratio 11 (6-26); Blood Urea Nitrogen 13 mg/dL (8-23); Calcium 8.5 mg/dL (8.6-10.3); Carbon Dioxide 23 mEq/L (23-29); Chloride 105 mEq/L (98-107); Glucose 137 mg/dL (70-105); Osmolality,Calculated 284 (280-300); Sodium 136 mEq/L (136-145); eGFR For African Americans > 60 (> 60); eGFR For Non-African Americans > 60 (> 60)
[2020-09-21] MEDS: Pantoprazole 40 MG VIAL IVP SCH ×2 (05:50→18:03)
[2020-09-21] MEDS: DilTIAZem CD (24hr) 180 MG CAP.ER.24H PO SCH (07:36)
[2020-09-21] MEDS: Gabapentin 300 MG CAPSULE PO SCH ×3 (07:36→20:37)
[2020-09-21] MEDS: Spironolactone 25 MG TABLET PO SCH (07:36)
[2020-09-21] MEDS ORDERED: Lidocaine -MPF 2% 2 ML VIAL ONE ×2 (13:24→13:26)
[2020-09-21] MEDS: 0.9 % Sodium Chloride 1,000 ML IVC SCH (23:27)
[2020-09-22] MEDS: Melatonin 3 MG TABLET PO PRN (02:22)
[2020-09-22] MEDS: *HR* OxyCODONE Immed Rel 15 MG TABLET PO SCH ×4 (02:22→10:35)
[2020-09-22] MEDS: Pantoprazole 40 MG VIAL IVP SCH (05:32)
[2020-09-22 06:05] LABS: Basophils % 0.5 %; Eosinophils # 0.2 K/mcL (0.0-0.6); Hemoglobin 8.4 g/dL (12.9-16.9); Immature Granulocytes % 0.5 % (0-4); Lymphocytes # 0.7 K/mcL (0.6-4.6); Lymphocytes % 16.3 %; Mean Corpuscular Hemoglobin 30.1 pg (28.0-33.3); Mean Corpuscular Volume 103.9 fL (83.0-100.0); Mean Platelet Volume 10.5 fL (9.4-12.4); Monocytes # 0.4 K/mcL (0.0-1.3); Monocytes % 9.8 %; Neutrophils # 2.7 K/mcL (1.6-8.9); Platelet Count 115 K/mcL (140-400); Red Blood Count 2.79 M/mcL (4.19-5.50); Red Cell Distribution Width 18.9 % (11.5-14.5); Segmented Neutrophils % 68.9 %
[2020-09-22 06:21] LABS: BUN/Creatinine Ratio 10 (6-26); Blood Urea Nitrogen 13 mg/dL (8-23); Calcium 8.6 mg/dL (8.6-10.3); Carbon Dioxide 28 mEq/L (23-29); Chloride 105 mEq/L (98-107); Glucose 131 mg/dL (70-105); Osmolality,Calculated 286 (280-300); Potassium 4.5 mEq/L (3.5-5.1); Sodium 137 mEq/L (136-145); eGFR For African Americans > 60 (> 60); eGFR For Non-African Americans 55 (> 60)
[2020-09-22] MEDS: Insulin LISPRO 300 UNITS/3 ML VIAL SUBQ SCH ×2 (07:25→11:15)
[2020-09-22] MEDS: DilTIAZem CD (24hr) 180 MG CAP.ER.24H PO SCH (07:33)
[2020-09-22] MEDS: Gabapentin 300 MG CAPSULE PO SCH (07:33)
[2020-09-22] MEDS: Spironolactone 25 MG TABLET PO SCH (07:33)
[2020-09-22] MEDS ORDERED: Apixaban 5 MG TABLET PO SCH (09:00)
[2020-09-22] MEDS: 0.9 % Sodium Chloride 1,000 ML IVC SCH (10:30)
[2020-09-22 11:16] VITALS: BP 119/65
== END 2020-09-22 14:45 | disposition home health service (06) ==
LOC: 3ANU 14:59 → EMEROOARM 14:59 → SUATTDRO 18:07 → 3ANU 18:50
PROVIDERS: ADMIT Internal Medicine; ATTEND Internal Medicine

== ENCOUNTER 2021-02-15 11:39 | Observation (INO) ==
[2021-02-15] MEDS ORDERED: Acetaminophen 325 MG TABLET PO PRN (13:30)
[2021-02-15] MEDS ORDERED: D5% in Water 1,000 ML IVC PRN (13:30)
[2021-02-15] MEDS ORDERED: Ondansetron 4 MG/2 ML VIAL IVP PRN (13:30)
[2021-02-15] MEDS ORDERED: *HR* Dextrose 50 % in Water (Vial) 50 ML VIAL IVP PRN (13:30)
[2021-02-15] MEDS ORDERED: Dextrose Gel 15 GM/37.5 ML TUBE PO PRN ×2 (13:30)
[2021-02-15] MEDS ORDERED: Naloxone 0.4 MG/ML INJ IVP PRN (13:30)
[2021-02-15] MEDS ORDERED: Perflutren Lipid Microsphere 1.3 ML in 0.9 % Sodium Chloride 8.7 ML IVP PRN (13:33)
[2021-02-15] MEDS ORDERED: Melatonin 3 MG TABLET PO PRN (13:55)
[2021-02-15] MEDS ORDERED: Furosemide 40 MG/4 ML VIAL IVP SCH (14:00)
[2021-02-15] MEDS ORDERED: Nitroglycerin 0.4 MG TAB.SUBL SL PRN (14:05)
[2021-02-15] MEDS ORDERED: *HR* LORazepam 1 MG TABLET PO ONE ×2 (15:22→21:03)
[2021-02-15] MEDS: *HR* OxyCODONE Immed Rel 15 MG TABLET PO PRN (18:33)
[2021-02-15] MEDS: Insulin LISPRO 300 UNITS/3 ML VIAL SUBQ SCH (18:33)
[2021-02-15] MEDS: Apixaban 5 MG TABLET PO SCH (20:46)
[2021-02-15] MEDS ORDERED: Gabapentin 400 MG CAPSULE PO ONE (21:06)
[2021-02-15] MEDS ORDERED: Morphine Sulfate 2 MG/ML SYRINGE IVP ONE (22:01)
[2021-02-15] MEDS ORDERED: *HR* LORazepam 2 MG/ML VIAL IVP ONE (23:32)
[2021-02-16 00:26] LABS: BUN/Creatinine Ratio 14 (6-26); Blood Urea Nitrogen 17 mg/dL (8-23); Calcium 9.8 mg/dL (8.6-10.3); Carbon Dioxide 26 mEq/L (23-29); Chloride 102 mEq/L (98-107); Chol/HDL Ratio 2.8 (0-4.9); Cholesterol 122 mg/dL (< 200); Glucose 135 mg/dL (70-105); HDL Cholesterol 43 mg/dL (40-59); LDL Cholesterol,Calculated 58 mg/dL (< 100); Magnesium 1.5 mg/dL (1.6-2.6); Osmolality,Calculated 290 (280-300); Potassium 3.7 mEq/L (3.5-5.1); Sodium 138 mEq/L (136-145); Triglycerides 103 mg/dL (< 150); eGFR For African Americans > 60 (> 60); eGFR For Non-African Americans 60 (> 60)
[2021-02-16 00:30] LABS: Basophils % 0.5 %; Eosinophils # 0.1 K/mcL (0.0-0.6); Eosinophils % 2.3 %; Hematocrit 42.3 % (37.5-50.1); Hemoglobin 13.7 g/dL (12.9-16.9); Immature Granulocytes % 0.2 % (0-4); Lymphocytes # 0.7 K/mcL (0.6-4.6); Lymphocytes % 11.7 %; Mean Corpuscular HGB Conc 32.4 g/dL (31.6-35.5); Mean Corpuscular Hemoglobin 32.1 pg (28.0-33.3); Mean Corpuscular Volume 99.1 fL (83.0-100.0); Mean Platelet Volume 10.4 fL (9.4-12.4); Monocytes # 0.5 K/mcL (0.0-1.3); Monocytes % 9.2 %; Neutrophils # 4.4 K/mcL (1.6-8.9); Platelet Count 119 K/mcL (140-400); Red Blood Count 4.27 M/mcL (4.19-5.50); Red Cell Distribution Width 14.2 % (11.5-14.5); Segmented Neutrophils % 76.1 %; White Blood Count 5.8 K/mcL (4.3-11.1)
[2021-02-16] MEDS: Insulin LISPRO 300 UNITS/3 ML VIAL SUBQ SCH ×3 (07:18→18:24)
[2021-02-16] MEDS: Furosemide 40 MG/4 ML VIAL IVP SCH ×2 (08:48→21:24)
[2021-02-16] MEDS: Spironolactone 25 MG TABLET PO SCH (08:48)
[2021-02-16] MEDS: Apixaban 5 MG TABLET PO SCH ×2 (08:48→21:23)
[2021-02-16] MEDS: DilTIAZem CD (24hr) 180 MG CAP.ER.24H PO SCH (08:48)
[2021-02-16] MEDS: Gabapentin 400 MG CAPSULE PO SCH ×3 (08:48→21:13)
[2021-02-16] MEDS: *HR* OxyCODONE Immed Rel 15 MG TABLET PO PRN ×4 (08:51→21:40)
[2021-02-16] MEDS: Melatonin 3 MG TABLET PO PRN (22:52)
[2021-02-17 00:49] LABS: Hematocrit 42.1 % (37.5-50.1); Hemoglobin 13.5 g/dL (12.9-16.9); Mean Corpuscular HGB Conc 32.1 g/dL (31.6-35.5); Mean Corpuscular Hemoglobin 32.2 pg (28.0-33.3); Mean Corpuscular Volume 100.5 fL (83.0-100.0); Mean Platelet Volume 10.4 fL (9.4-12.4); Platelet Count 111 K/mcL (140-400); Red Blood Count 4.19 M/mcL (4.19-5.50); Red Cell Distribution Width 14.2 % (11.5-14.5); White Blood Count 5.3 K/mcL (4.3-11.1)
[2021-02-17 01:05] LABS: INR 1.5; Prothrombin Time 16.8 Seconds (9.4-12.1)
[2021-02-17 01:08] LABS: BUN/Creatinine Ratio 19 (6-26); Blood Urea Nitrogen 25 mg/dL (8-23); Calcium 9.8 mg/dL (8.6-10.3); Carbon Dioxide 30 mEq/L (23-29); Chloride 101 mEq/L (98-107); Glucose 151 mg/dL (70-105); Osmolality,Calculated 293 (280-300); Potassium 3.9 mEq/L (3.5-5.1); Sodium 138 mEq/L (136-145); eGFR For African Americans > 60 (> 60); eGFR For Non-African Americans 53 (> 60)
[2021-02-17] MEDS: *HR* OxyCODONE Immed Rel 15 MG TABLET PO PRN ×6 (01:51→23:31)
[2021-02-17] MEDS: Insulin LISPRO 300 UNITS/3 ML VIAL SUBQ SCH ×3 (07:43→17:54)
[2021-02-17] MEDS: DilTIAZem CD (24hr) 180 MG CAP.ER.24H PO SCH (09:46)
[2021-02-17] MEDS: Spironolactone 25 MG TABLET PO SCH (09:46)
[2021-02-17] MEDS: Apixaban 5 MG TABLET PO SCH ×2 (09:46→20:20)
[2021-02-17] MEDS: Furosemide 40 MG/4 ML VIAL IVP SCH (09:47)
[2021-02-17] MEDS: Gabapentin 400 MG CAPSULE PO SCH ×3 (09:47→20:20)
[2021-02-17 10:31] LABS: INR 1.4; Prothrombin Time 16.3 Seconds (9.4-12.1)
[2021-02-17] MEDS: Furosemide 40 MG TABLET PO SCH (17:55)
[2021-02-17] MEDS: Melatonin 3 MG TABLET PO PRN (23:31)
[2021-02-18] MEDS: *HR* OxyCODONE Immed Rel 15 MG TABLET PO PRN ×3 (03:23→10:37)
[2021-02-18 04:07] LABS: Calcium 9.5 mg/dL (8.6-10.3); Magnesium 1.8 mg/dL (1.6-2.6); Phosphorous 5.3 mg/dL (2.7-4.5); Potassium 4.6 mEq/L (3.5-5.1)
[2021-02-18 07:57] VITALS: BP 99/63
[2021-02-18] MEDS: Spironolactone 25 MG TABLET PO SCH (08:27)
[2021-02-18] MEDS: Apixaban 5 MG TABLET PO SCH (08:27)
[2021-02-18] MEDS: DilTIAZem CD (24hr) 180 MG CAP.ER.24H PO SCH (08:28)
[2021-02-18] MEDS: Insulin LISPRO 300 UNITS/3 ML VIAL SUBQ SCH (08:28)
[2021-02-18] MEDS: Furosemide 40 MG TABLET PO SCH (08:28)
[2021-02-18] MEDS: Gabapentin 400 MG CAPSULE PO SCH (08:28)
[2021-02-18] MEDS ORDERED: Furosemide 40 MG TABLET PO SCH (09:00)
== END 2021-02-18 12:19 | disposition home or self-care (01) ==
LOC: 3ANU → SUATTDRO 13:15
PROVIDERS: ADMIT Internal Medicine; ATTEND Internal Medicine